=== PATIENT | female | born 1950 | race Caucasian/White ===

== ENCOUNTER 2019-01-11 15:57 | Emergency (ER) | payer OTHER ==
--- OUTSIDE RECORDS SUMMARY | 2019-01-11 16:01 | XMS REPORT | Clinical Summary ---
:1950 Author Organization [facility] Address [address] [place] [address] Care Team Providers Name Role Phone Lucas Stafford DO Primary Care Provider Allergies Active Allergy Reactions Severity Noted Date Comments Adhesive Hives High 12/01/2015 Povidone-Iodine Hives High 12/01/2015 Codeine Anaphylaxis High 12/01/2015 Diazepam Anaphylaxis High 12/01/2015 Iodine High 12/01/2015 Other reaction(s): Irregular heart rate Penicillins Anaphylaxis High 12/01/2015 Procaine Hives High 12/01/2015 Propoxyphene Anaphylaxis High 12/01/2015 Propoxyphene N-Acetaminophen Anaphylaxis High 12/01/2015 Sulfa (Sulfonamide Hives High 12/01/2015 Antibiotics) Medications Medication Sig Dispensed Refills Start End Date Status Date meclizine (ANTIVERT) Take 25 mg by mouth 2 (two) times a day. 1 tablet po BID 0 Active 25 mg tablet INSULIN ASPART Inject 20 Units 0 Active (NOVOLOG FLEXPEN under the skin SUBQ) nightly. budesonide-formotero Inhale 2 puffs 3 Inhaler 3 Active l (SYMBICORT) 2 (two) times a 7 160-4.5 day. mcg/actuation inhaler aspirin (ECOTRIN) 81 Take 81 mg by 0 Active MG enteric coated mouth daily. tablet KLOR-CON 10 10 mEq Take 1 tablet 90 tablet 0 Active CR tablet by mouth daily 7 insulin detemir Inject 30 Units 30 mL 1 Active (LEVEMIR) 100 under the skin 7 unit/mL injection nightly. nitroglycerin TAKE 1 TABLET 3 Active (NITROSTAT) 0.4 MG BY MOUTH UNDER 8 SL tablet TONGUE EVERY 5 MIN NEEDED FOR CHEST PAIN blood-glucose meter Test daily 1 each 0 Active (ACCU-CHEK YUNIEL before all 8 PLUS METER) [facility] [place] meals/snacks and once before bedtime. blood sugar Test B.I.D.-DX; 200 strip 1 Active diagnostic strips E11.9 8 (FREESTYLE TEST) strip test strips triamcinolone Apply topically 80 g 1 01/19/20 Active (KENALOG) 0.025 % 2 (two) times a 8 19 creamIndications: day. Decubitus ulcer of buttock, stage 2, unspecified laterality potassium chloride Take 1 tablet 90 tablet 1 Active (KLOR-CON 10) 10 MEQ (10 mEq total) 8 CR tablet by mouth daily. insulin lispro Inject 20 Units 18 pen 3 Active (HUMALOG) 100 under the skin 8 unit/mL injection 3 (three) times pen a day before meals. metoprolol succinate Take 1 tablet 90 tablet 1 Active XL (TOPROL-XL) 25 mg (25 mg total) 8 24 hr tablet by mouth daily. lisinopril Take 1 tablet 90 tablet 1 Active (PRINIVIL,ZESTRIL) 5 (5 mg total) by 8 mg tablet mouth daily. KLOR-CON 10 10 mEq Take 1 tablet 90 tablet 0 Active CR tablet by mouth daily 8 BRILINTA 90 mg Take 1 tablet 180 tablet 0 Active tablet by mouth every 8 12 hours PROAIR HFA 90 Inhale 2 puffs 34 g 0 Active mcg/actuation by mouth every 8 inhalerIndications: 6 hours as History of asthma needed for wheezing atorvastatin Take 1 tablet 90 tablet 0 Active (LIPITOR) 80 MG (80 mg total) 9 tablet by mouth nightly. insulin GLARGINE Inject 30 Units 10 vial 3 Active (LANTUS) 100 unit/mL under the skin 9 injection (vial) nightly. furosemide (LASIX) Take 1 tablet 180 tablet 1 Active 20 mg tablet (20 mg total) 9 by mouth 2 (two) times a day. PARoxetine (PAXIL) Take 1 tablet 90 tablet 1 Active 20 MG tablet (20 mg total) 9 by mouth every morning. tolterodine LA Take 1 capsule 90 capsule 1 Active (DETROL LA) 4 MG 24 (4 mg total) by 9 hr capsule mouth daily. traMADol 100 mg Take 100 mg by 180 capsule 1 03/23/20 Active capsule,ER biphase mouth 2 (two) 9 19 24 hr 25-75 times a day for 90 days. fenofibrate (TRICOR) Take 1 tablet 90 tablet 1 Active 145 MG tablet (145 mg total) 9 by mouth daily. minocycline Take 1 capsule 60 capsule 0 02/07/20 Active (MINOCIN,DYNACIN) (100 mg total) 9 19 100 MG capsule by mouth 2 (two) times a day for 30 days. traMADol 100 mg Take 100 mg by 180 capsule 1 03/06/20 Discontinued capsule,ER biphase mouth 2 (two) 6 18 24 hr 25-75 times a day for 90 days. hydrocortisone Take 20 mg by 0 05/21/20 Discontinued (CORTEF) 20 MG mouth as 7 18 tablet needed. fenofibrate (TRICOR) Take 1 tablet 90 tablet 1 03/06/20 Discontinued 145 MG tablet (145 mg total) 7 18 by mouth daily. furosemide (LASIX) Take 20 mg by 0 05/21/20 Discontinued 20 mg tablet mouth 2 (two) 18 times a day. pregabalin (LYRICA) Take 150 mg by 0 09/23/20 Discontinued 150 MG capsule mouth 3 (three) 18 times a day. fludrocortisone 0.1 Take 1 tablet 90 tablet 0 02/26/20 Discontinued mg tablet by mouth daily 7 18 clonAZEPAM Take 1 tablet 90 tablet 0 02/09/20 Discontinued (KlonoPIN) 1 MG by mouth every 7 18 tablet night at bedtime triamcinolone Apply topically 80 g 1 01/19/20 Discontinued (KENALOG) 0.025 % 2 (two) times a 8 18 creamIndications: day. Decubitus ulcer of buttock, stage 2, unspecified laterality albuterol (PROAIR Inhale 2 puffs 18 g 1 04/15/20 Discontinued HFA,PROVENTIL every 6 (six) 8 18 HFA,VENTOLIN HFA) 90 hours as needed mcg/actuation for wheezing. inhalerIndications: History of asthma PARoxetine (PAXIL) Take 1 tablet 90 tablet 0 05/21/20 Discontinued 20 MG tablet by mouth every 8 18 morning BRILINTA 90 mg Take 90 mg by 6 01/19/20 Discontinued tablet mouth every 12 8 18 (twelve) hours. metoprolol succinate Take 25 mg by 6 01/19/20 Discontinued XL (TOPROL-XL) 25 mg mouth daily. 8 18 24 hr tablet lisinopril Take 5 mg by 6 01/19/20 Discontinued (PRINIVIL,ZESTRIL) 5 mouth daily. 8 18 mg tablet atorvastatin Take 80 mg by 6 01/19/20 Discontinued (LIPITOR) 80 MG mouth nightly. 8 18 tablet insulin lispro Inject 20 Units 0 04/15/20 Discontinued (HUMALOG) 100 under the skin 18 unit/mL injection 3 (three) times pen a day before meals. insulin GLARGINE Inject 30 Units 0 04/15/20 Discontinued (LANTUS) 100 unit/mL under the skin 18 injection (vial) nightly. traMADol (ULTRAM) 50 Take 1 tablet 30 tablet 0 02/11/20 Discontinued mg tablet by mouth every 8 18 6 hours as needed for moderate pain lisinopril Take 1 tablet 90 tablet 0 04/15/20 Discontinued (PRINIVIL,ZESTRIL) 5 (5 mg total) by 8 18 mg tablet mouth daily. atorvastatin Take 1 tablet 90 tablet 0 02/09/20 Discontinued (LIPITOR) 80 MG (80 mg total) 8 18 tablet by mouth nightly. BRILINTA 90 mg Take 1 tablet 180 tablet 0 01/23/20 Discontinued tablet (90 mg total) 8 18 by mouth every 12 (twelve) hours. metoprolol succinate Take 1 tablet 90 tablet 0 04/15/20 Discontinued XL (TOPROL-XL) 25 mg (25 mg total) 8 18 24 hr tablet by mouth daily. BRILINTA 90 mg Take 1 tablet 180 tablet 0 06/28/20 Discontinued tablet (90 mg total) 8 18 by mouth every 12 (twelve) hours. clonAZEPAM Take 1 tablet 90 tablet 0 03/10/20 (KlonoPIN) 1 MG (1 mg total) by 8 18 tablet mouth nightly for 30 days. atorvastatin Take 1 tablet 90 tablet 1 07/23/20 Discontinued (LIPITOR) 80 MG (80 mg total) 8 18 tablet by mouth nightly. traMADol (ULTRAM) 50 Take 1 tablet 30 tablet 0 03/13/20 mg tablet by mouth every 8 18 6 hours as needed for moderate pain minocycline Take 1 capsule 60 capsule 1 03/06/20 Discontinued (MINOCIN,DYNACIN) (100 mg total) 8 18 100 MG capsule by mouth 2 (two) times a day for 30 days. fludrocortisone Take 1 tablet 90 tablet 0 05/20/20 Discontinued (FLORINEF) 0.1 mg by mouth daily 8 18 tablet minocycline Take 1 capsule 60 capsule 1 04/15/20 Discontinued (MINOCIN,DYNACIN) (100 mg total) 8 18 100 MG capsule by mouth 2 (two) times a day for 30 days. fenofibrate (TRICOR) Take 1 tablet 90 tablet 1 09/03/20 Discontinued 145 MG tablet (145 mg total) 8 18 by mouth daily. traMADol 100 mg Take 100 mg by 180 capsule 1 05/21/20 Discontinued capsule,ER biphase mouth 2 (two) 8 18 24 hr 25-75 times a day for 90 days. KLOR-CON 10 10 mEq Take 1 tablet 90 tablet 0 04/08/20 Discontinued CR tablet by mouth daily 8 18 albuterol (PROAIR Inhale 2 puffs 51 g 1 09/27/20 Discontinued HFA,PROVENTIL every 6 (six) 8 18 HFA,VENTOLIN HFA) 90 hours as needed mcg/actuation for wheezing. inhalerIndications: History of asthma metoprolol succinate Take 1 tablet 90 tablet 1 05/21/20 Discontinued XL (TOPROL-XL) 25 mg (25 mg total) 8 18 24 hr tablet by mouth daily. lisinopril Take 1 tablet 90 tablet 1 05/21/20 Discontinued (PRINIVIL,ZESTRIL) 5 (5 mg total) by 8 18 mg tablet mouth daily. minocycline Take 1 capsule 180 capsule 1 05/15/20 (MINOCIN,DYNACIN) (100 mg total) 8 18 100 MG capsule by mouth 2 (two) times a day for 30 days. insulin GLARGINE Inject 30 Units 10 vial 3 11/11/19 Discontinued (LANTUS) 100 unit/mL under the skin 8 19 injection (vial) nightly. pen needle, diabetic 3 Devices 300 each 1 08/07/20 Discontinued (TRUEPLUS PEN daily. 8 18 NEEDLE) 32 gauge x 5/32" needle fludrocortisone Take 1 tablet 90 tablet 0 05/21/20 Discontinued (FLORINEF) 0.1 mg by mouth daily 8 18 tablet minocycline Take 100 mg by 0 08/07/20 Discontinued (MINOCIN,DYNACIN) mouth 2 (two) 18 100 MG capsule times a day. clonAZEPAM clonazepam 1 mg tablet 0 05/21/20 Discontinued (KlonoPIN) 1 MG Take 1 tablet by mouth every night at bedtime 18 tablet pregabalin (LYRICA) Take 150 mg by 0 05/21/20 Discontinued 150 MG capsule mouth 2 (two) 18 times a day. tolterodine LA Take 4 mg by 0 05/21/20 Discontinued (DETROL LA) 4 MG 24 mouth daily. 18 hr capsule clonAZEPAM clonazepam 1 mg tablet 90 tablet 1 06/28/20 Discontinued (KlonoPIN) 1 MG Take 1 tablet by mouth every night at bedtime 8 18 tablet furosemide (LASIX) Take 1 tablet 180 tablet 1 11/26/19 Discontinued 20 mg tablet (20 mg total) 8 19 by mouth 2 (two) times a day. fludrocortisone Take 1 tablet 90 tablet 1 08/21/20 (FLORINEF) 0.1 mg by mouth daily 8 18 tablet pregabalin (LYRICA) Take 1 capsule 180 capsule 1 08/19/20 150 MG capsule (150 mg total) 8 18 by mouth 2 (two) times a day for 90 days. traMADol 100 mg Take 100 mg by 180 capsule 1 10/11/20 Discontinued capsule,ER biphase mouth 2 (two) 8 18 24 hr 25-75 times a day for 90 days. PARoxetine (PAXIL) Take 1 tablet 90 tablet 1 11/26/19 Discontinued 20 MG tablet (20 mg total) 8 19 by mouth every morning. tolterodine LA Take 1 capsule 90 capsule 1 11/26/19 Discontinued (DETROL LA) 4 MG 24 (4 mg total) by 8 19 hr capsule mouth daily. fludrocortisone Take 1 tablet 90 tablet 0 07/14/20 (FLORINEF) 0.1 mg by mouth daily 8 18 tablet clonAZEPAM Take 1 tablet 90 tablet 0 07/28/20 (KlonoPIN) 1 MG by mouth 8 18 tablet nightly BRILINTA 90 mg Take 1 tablet 180 tablet 0 09/23/20 Discontinued tablet by mouth every 8 18 12 hours atorvastatin Take 1 tablet 90 tablet 0 08/27/20 Discontinued (LIPITOR) 80 MG by mouth 8 18 tablet nightly pen needle, diabetic 3 Devices 300 each 1 09/20/20 Discontinued (TRUEPLUS PEN daily. 8 18 NEEDLE) 32 gauge x 5/32" needle minocycline Take 1 capsule 20 capsule 0 08/21/20 Discontinued (MINOCIN,DYNACIN) (100 mg total) 8 18 100 MG capsule by mouth 2 (two) times a day for 10 days. minocycline Take 1 capsule 60 capsule 0 10/07/20 Discontinued (MINOCIN,DYNACIN) (100 mg total) 8 18 100 MG capsule by mouth 2 (two) times a day for 30 days. atorvastatin Take 1 tablet 90 tablet 0 10/31/19 Discontinued (LIPITOR) 80 MG by mouth 8 19 tablet nightly fenofibrate (TRICOR) Take 1 tablet 90 tablet 0 12/23/19 Discontinued 145 MG tablet by mouth daily 8 19 pen needle, diabetic 3 Devices 300 each 1 09/23/20 Discontinued (TRUEPLUS PEN daily. 8 18 NEEDLE) 32 gauge x 5/32" needle clonAZEPAM Take 1 tablet 90 tablet 0 12/24/19 (KlonoPIN) 1 MG by mouth 8 19 tablet nightly pen needle, diabetic Use three 300 each 1 12/24/19 (BD ULTRA-FINE ASHOK needles daily 8 19 PEN NEEDLE) 32 gauge to inject x 532" needle insulin pregabalin (LYRICA) Take 1 capsule 270 capsule 2 12/22/19 150 MG capsule (150 mg total) 8 19 by mouth 3 (three) times a day for 90 days. minocycline Take 1 capsule 60 capsule 0 11/20/19 Discontinued (MINOCIN,DYNACIN) (100 mg total) 8 19 100 MG capsule by mouth 2 (two) times a day for 30 days. traMADol 100 mg Take 100 mg by 180 capsule 1 12/23/19 Discontinued capsule,ER biphase mouth 2 (two) 8 19 24 hr 25-75 times a day for 90 days. insulin GLARGINE Inject 30 Units 10 vial 3 11/26/19 Discontinued (LANTUS) 100 unit/mL under the skin 9 19 injection (vial) nightly. minocycline Take 1 capsule 60 capsule 0 01/08/20 Discontinued (MINOCIN,DYNACIN) (100 mg total) 9 19 100 MG capsule by mouth 2 (two) times a day for 30 days. insulin GLARGINE Inject 30 Units 10 vial 3 11/26/19 Discontinued (LANTUS) 100 unit/mL under the skin 9 19 injection (vial) nightly. tolterodine LA Take 1 capsule 90 capsule 1 12/13/19 Discontinued (DETROL LA) 4 MG 24 (4 mg total) by 9 19 hr capsule mouth daily. tolterodine LA Take 1 capsule 90 capsule 1 12/23/19 Discontinued (DETROL LA) 4 MG 24 (4 mg total) by 9 19 hr capsule mouth daily. 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 History of coronary artery stent placement 12/21/2017 History of asthma 2017 Left ear pain 2017 Intractable acute post-traumatic headache 08/08/2017 Hematoma 08/08/2017 Mixed hyperlipidemia 05/07/2017 Pressure ulcer of contiguous region involving back, buttock, and hip, 2016 stage 1 Pain in buttock 03/12/2017 Thrush 02/28/2017 Cellulitis of right lower extremity 02/28/2017 Dysuria 2016 Polyuria 2016 Foot injury 09/01/2016 Abnormal mammogram of left breast 09/01/2016 Fall 07/31/2016 Difficulty walking 05/02/2016 Urge incontinence of urine 05/02/2016 Arthritis of knee 12/01/2015 Depression 12/01/2015 Diabetic neuropathy with neurologic complication 12/01/2015 Diabetic neuropathy 12/01/2015 Diarrhea 12/01/2015 Herpes zoster 12/01/2015 Impairment level: one eye: total impairment: other eye: not specified 2015 Knee pain 12/01/2015 Nausea 12/01/2015 Peripheral neuropathic pain 12/01/2015 Restless legs syndrome 12/01/2015 Sinusitis 12/01/2015 Wheezing 12/01/2015 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 Encounters Date Type Specialty Care Team Description 01/10/2019 Telephone Family Medicine Dora Vaca LVN 01/07/2019 Orders Only Family Medicine Mayeamfelter, R Osbaldo, DO 01/03/2019 Refill Family Medicine Lingamfelter, R Osbaldo, DO 12/23/2018 Orders Only Family Medicine Lingamfelter, R Osbaldo, DO 12/21/2018 Refill Family Medicine Lingamfelter, R Osbaldo, DO 12/13/2018 Orders Only Family Medicine Lingamfelter, R Osbaldo, DO 12/12/2018 Refill Lingamfelter, R Osbaldo, DO 11/26/2018 Orders Only Family Medicine Lingamfelter, R Osbaldo, DO 11/26/2018 Orders Only Family Medicine Lingamfelter, R Osbaldo, DO 11/26/2018 Orders Only Family Medicine Lingamfelter, R Osbaldo, DO 11/24/2018 Refill Lingamfelter, R Osbaldo, DO 11/24/2018 Refill Family Medicine Lingamfelter, R Osbaldo, DO 11/20/2018 Orders Only Family Medicine Lingamfelter, R Osbaldo, DO 11/19/2018 Refill Family Medicine Lingamfelter, R Osbaldo, DO 11/10/2018 Refill Internal Medicine Lingamfelter, R Osbaldo, DO 11/10/2018 Telephone Internal Medicine Lingamfelter, R Osbaldo, DO 10/31/2018 Refill Family Medicine Lingamfelter, R Osbaldo, DO 10/24/2018 Refill Family Medicine Lingamfelter, R Osbaldo, DO 10/18/2018 Orders Only Family Medicine Lingamfelter, R Osbaldo, DO 10/18/2018 Refill Family Medicine Lingamfelter, R Osbaldo, DO 10/11/2018 Orders Only Family Medicine Lingamfelter, R Osbaldo, DO 10/11/2018 Refill Family Medicine Lingamfelter, R Osbaldo, DO 10/07/2018 Refill Family Medicine Lingamfelter, R Osbaldo, DO 09/27/2018 Refill Family Medicine Lingamfelter, R History of asthma Osbaldo, DO 09/23/2018 Orders Only Family Medicine Lingamfelter, R Osbaldo, DO 09/23/2018 Orders Only Family Medicine Lingamfelter, R Osbaldo, DO 09/23/2018 Refill Family Medicine Lingamfelter, R Osbaldo, DO 09/23/2018 Telephone Family Medicine Dora Vaca LVN 09/21/2018 Refill Family Medicine Lingamfelter, R Osbaldo, DO 09/20/2018 Refill Family Medicine Lingamfelter, R Osbaldo, DO 09/03/2018 Refill Family Medicine Lingamfelter, R Osbaldo, DO 08/27/2018 Refill Family Medicine Lingamfelter, R Osbaldo, DO 08/21/2018 Orders Only Family Medicine Lingamfelter, R Osbaldo, DO 08/21/2018 Telephone Internal Medicine Marky Tello MA 08/07/2018 Office Visit Family Medicine Lingamfelter, R Diabetic neuropathy with neurologic complication (HCC) (Primary Dx); Osbaldo, DO Pressure injury of contiguous region involving back, buttock, and hip, stage 1, unspecified laterality 08/03/2018 Refill Endocrinology Munira Lemus MD 07/23/2018 Refill Family Medicine Lingamfelter, R Osbaldo, DO 07/01/2018 Orders Only Family Medicine Lingamfelter, R Osbaldo, DO 06/28/2018 Refill Family Medicine Lingamfelter, R Osbaldo, DO 06/15/2018 Refill Endocrinology Munira Lemus MD 06/13/2018 Refill Family Medicine Lingamfelter, R Osbaldo, DO 05/21/2018 Office Visit Family Medicine Lingamfelter, R Coronary artery disease of [place]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 stable angina pectoris (Primary Dx ); Osbaldo, DO Diabetic neuropathy with neurologic complication 05/20/2018 Refill Family Medicine Lingamfelter, R Osbaldo, DO 05/18/2018 Refill Family Medicine Lingamfelter, R Osbaldo, DO 05/02/2018 Refill Family Medicine Lingamfelter, R Osbaldo, DO 04/25/2018 Orders Only Family Medicine Lingamfelter, R Osbaldo, DO 04/15/2018 Orders Only Family Medicine Lingamfelter, R Osbaldo, DO 04/15/2018 Orders Only Family Medicine Lingamfelter, R Osbaldo, DO 04/15/2018 Orders Only Family Medicine Lingamfelter, R History of asthma Osbaldo, DO 04/14/2018 Refill Family Medicine Pop Navarro History of asthma MD Ross 04/14/2018 Refill Family Medicine Lingamfelter, R Osbaldo, DO 04/08/2018 Office Visit Family Medicine Lingamfelter, R Pressure ulcer of contiguous region involving back, buttock, and hip, stage 1, unspecified laterality (Primary Dx); Osbaldo, DO Rash 03/31/2018 Refill Family Medicine Lingamfelter, R Osbaldo, DO 03/06/2018 Office Visit Family Medicine Lingamfelter, R Coronary artery disease of [place]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 stable angina pectoris (Primary Dx ); Osbaldo, DO Decubitus ulcer of sacral region, stage 2 02/25/2018 Refill Family Medicine Lingamfelter, R Osbaldo, DO 02/20/2018 Office Visit Family Medicine Lingamfelter, R Pain in buttock ( Primary Dx); Osbaldo, DO Pressure ulcer of contiguous region involving back and right buttock, stage 2 02/10/2018 Refill Family Medicine Lingamfelter, R Osbaldo, DO 02/08/2018 Orders Only Family Medicine Lingamfelter, R Osbaldo, 02/06/2018 Refill Family Medicine Lucas Stafford, DO 01/22/2018 Orders Only Family Medicine Lucas Stafford, 01/18/2018 Orders Only Family Medicine Lucas Stafford, DO 01/18/2018 Orders Only Family Medicine Lucas Stafford Decubitus ulcer of DO Osbaldo buttock, stage 2, unspecified laterality 01/17/2018 Refill Family Medicine Pop Navarro Decubitus ulcer of MD Ross buttock, stage 2, unspecified laterality after 01/10/2018 Immunizations Name Dates Previously Given Next Due FLUZONE HIGH-DOSE PF 11/14/2018, 08/07/2016, 08/18/2015, 08/29/2014 Pneumococcal Polysaccharide 07/29/2013 Family History Medical History Relation Name Comments Cancer Father Throat cancer Father Pulmonary embolism Mother Relation Name Status Comments Father (Age 61) Mother (Age 79) Social History Tobacco Use Types Packs/Day Years Used Date Current Every Day Smoker 1 36 Started: 1979 Smokeless Tobacco: Never Used Tobacco Cessation: Ready to Quit: Yes; Counseling Given: Yes Comments: quitting now on 10/30 day Alcohol Use Drinks/Week oz/Week Comments No Sex Assigned at Date Recorded Not on file Job Start Date Occupation Industry Not on file Not on file Not on file Travel History Travel Start Travel End No recent travel history available. Last Filed Vital Signs Vital Sign Reading Time Taken Blood Pressure 126/76 08/07/2018 10:23 AM CDT Pulse 68 08/07/2018 10:23 AM CDT Temperature 36.7 C (98 F) 08/07/2018 10:23 AM CDT Respiratory Rate 18 08/07/2018 10:23 AM CDT Oxygen Saturation 93% 08/07/2018 10:23 AM CDT Inhaled Oxygen Concentration - - Weight 94.3 kg (208 lb) 08/07/2018 10:23 AM CDT Height 167.6 cm (5' 6") 08/07/2018 10:23 AM CDT Body Mass Index 33.57 08/07/2018 10:23 AM CDT Plan of Treatment Date Type Specialty Care Team Description 01/13/2019 [place] [address] [place] [address] [phone] [place] [address] [place] [address] [phone] Health Maintenance Due Date Last Done Comments DIABETIC RETINAL EYE EXAM 1950 DIABETIC FOOT EXAM 1959 COLON CANCER SCREENING 1999 SHINGLES VACCINES (#1) 1999 65+ PNEUMOCOCCAL VACCINE (2 of 2 - 07/29/2018 07/29/2013 PPSV23) BREAST CANCER SCREENING 12/06/2018 12/06/2016, 09/11/2016, 08/07/2016, Additional history exists URINE MICROALBUMIN 05/21/2019 05/21/2018 PNEUMOCOCCAL POLYSACCHARIDE VACCINE Completed 07/29/2013 AGE 65 AND OVER INFLUENZA VACCINE Completed 11/14/2018, 08/07/2016, 08/18/2015, Additional history exists Implants Implanted Type Area Wrapper Stripper Device Shelf Model / Identifier Expiration Serial / Lot Date Lens Iol Asprc Asymet Bicnvx Ant +17.5d 0deg 6x13mm - [id number] - [id number] Intraocular Right: JED 02/25/2021 [id number] / Implanted: Qty: 1 on 03/14/2017 by Ilir Lopez DO [employer] [id number] / INC [id number] Lens Iol Asprc Asymet Bicnvx Ant +17.0d 0deg 6x13mm - [id number] - [id number] Intraocular Left: JED 02/25/2021 [id number] / Implanted: Qty: 1 on 06/06/2017 by Ilir Lopez DO [employer] [id number] / [id number] Procedures Procedure Name Priority Date/Time Associated Diagnosis Comments URINALYSIS, MICRO UA Routine 05/21/2018 12:15 Diabetic neuropathy Results for this SCREEN WITH MICROSCOPY PM CDT with neurologic procedure are in complication the results section. LIPID PANEL Routine 05/21/2018 12:15 Diabetic neuropathy Results for this PM CDT with neurologic procedure are in complication the results section. COMPREHENSIVE Routine 05/21/2018 12:15 Diabetic neuropathy Results for this METABOLIC PANEL PM CDT with neurologic procedure are in complication the results section. CBC WITH PLATELET AND Routine 05/21/2018 12:15 Coronary artery Results for this DIFFERENTIAL PM CDT disease of [place] procedure are in artery of [place] the results heart with stable section. angina pectoris HEMOGLOBIN A1C Routine 05/21/2018 12:15 Diabetic neuropathy Results for this PM CDT with neurologic procedure are in complication the results section. MICROALBUMIN / Routine 05/21/2018 12:15 Diabetic neuropathy Results for this CREATININE URINE RATIO PM CDT with neurologic procedure are in complication the results section. after 01/10/2018 Results Urinalysis, micro UA screen with microscopy (05/21/2018 12:15 PM CDT) WBC, UA NONE SEEN < OR=5 /HPF [facility] [place] RBC, UA NONE SEEN < OR=2 /HPF [facility] [place] Squamous epithelial cells, UA NONE SEEN < OR=5 /HPF [facility] [place] Bacteria, UA NONE SEEN NONE SEEN /HPF [facility] [place] Hyaline casts, UA NONE SEEN NONE SEEN /LPF [facility] [place] Specimen Urine Narrative Performed At FASTING:NO [facility] FASTING: NO Resulting Agency Comment Performing Organization Information: Site ID: [id number] Name: [facility] Address: [address] [place] [id number] Director: Hemalatha Davies Performing Organization Address City/State/Zipcode Phone Number [place] [address] Microalbumin / creatinine urine ratio (05/21/2018 12:15 PM CDT) Creatinine, urine, 31 20 - 320 mg/dL [facility] Microalbumin, urine <0.2 See Note: mg/dL [facility] Comment: [place] Reference Range: Reference Range Not established Results verified by repeat analysis on dilution. Microalbumin/creatini NOTE <30 mcg/mg creat [facility] ne ratio Comment: [place] The microalbumin value is less than 0.2 mg/dL therefore we are unable to calculate excretion and/or creatinine ratio. The ADA defines abnormalities in albumin excretion as follows: Category Result (mcg/mg creatinine) Normal<30 Microalbuminuria 30-299 Clinical albuminuria > BE=510 The ADA recommends that at least two of three specimens collected within a 3-6 month period be abnormal before considering a patient to be within a diagnostic category. Specimen Urine Narrative Performed At FASTING:NO [facility] FASTING: NO Resulting Agency Comment Performing Organization Information: Site ID: [id number] Name: [facility] Address: [address] [place], [place] [phone] Director: Hemalatha Davies Performing Organization Address City/[facility]/Zipcode Phone Number Take the Interview [address] [address] CBC with platelet and differential (05/21/2018 12:15 PM CDT) WBC 6.3 3.8 - 10.8 Thousand/uL [facility] [place] RBC 5.13 (H) 3.80 - 5.10 Million/uL [facility] [place] HGB 14.7 11.7 - 15.5 g/dL [facility] [place] HCT 43.7 35.0 - 45.0 % [facility] [place] MCV 85.2 80.0 - 100.0 fL [facility] [place] MCH 28.7 27.0 - 33.0 pg [facility] [place] MCHC 33.6 32.0 - 36.0 g/dL [facility] [place] RDW 13.4 11.0 - 15.0 % [facility] [place] Platelet count 189 140 - 400 Thousand/uL [facility] [place] MPV 10.4 7.5 - 12.5 fL [facility] [place] Neutrophils, absolute 2,344 1,500 - 7,800 cells/uL [facility] [place] Lymphocytes, absolute 2,948 850 - 3,900 cells/uL [facility] [place] Monocytes, absolute 662 200 - 950 cells/uL [facility] [place] Eosinophils, absolute 277 15 - 500 cells/uL [facility] [place] Basophils, absolute 69 0 - 200 cells/uL [facility] [place] Neutrophils 37.2 % [facility] [place] Lymphocytes 46.8 % [facility] [place] Monocytes 10.5 % [facility] [place] Eosinophils 4.4 % [facility] [place] Basophils + RC 1.1 % [facility] [place] Specimen Blood Narrative Performed At FASTING:NO [facility] FASTING: NO Resulting Agency Comment Performing Organization Information: Site ID: [id number] Name: [facility] Address: [address] [place] [phone] Director: Hemalatha Davies Performing Organization Address City/State/Zipcode Phone Number Take the Interview [address] [address] Hemoglobin A1c (05/21/2018 12:15 PM CDT) Hemoglobin A1C 10.9 (H) <5.7 % of total [facility] Comment: Hgb [place] For someone without known diabetes, a hemoglobin A1c value of 6.5% or greater indicates that they may have diabetes and this should be confirmed with a follow-up test. For someone with known diabetes, a value <7% indicates that their diabetes is well controlled and a value greater than or equal to 7% indicates suboptimal control. A1c targets should be individualized based on duration of diabetes, age, comorbid conditions, and other considerations. Currently, no consensus exists regarding use of hemoglobin A1c for diagnosis of diabetes for children. Specimen Blood Narrative Performed At FASTING:NO [facility] FASTING: NO Resulting Agency Comment Performing Organization Information: Site ID: [id number] Name: [facility] Address: [address] [place] [phone] Director: Hemalatha Davies Performing Organization Address City/State/Zipcode Phone Number [facility] [place] [phone] Lipid panel (05/21/2018 12:15 PM CDT) Cholesterol, total 121 <200 mg/dL [facility] HDL cholesterol 29 (L) >50 mg/dL [facility] Triglycerides 279 (H) <150 mg/dL [facility] LDL cholesterol 59 mg/dL (calc) [facility] calculated Comment: [place] Reference range: <100 Desirable range <100 mg/dL for primary prevention; <70 mg/dL for patients with CHD or diabetic patients with > or=2 CHD risk factors. LDL-C is now calculated using the Oumar-Melonie calculation, which is a validated novel method providing better accuracy than the Friedewald equation in the estimation of LDL-C. Oumar CHI et al. GURINDER. 2013;310(19): 4962-2532 (http://education.GoldenSUN/faq/HMU810) Cholesterol/HDL ratio 4.2 <5.0 (calc) [facility] Non-HDL cholesterol 92 <130 mg/dL [facility] Comment: (calc) [place] For patients with diabetes plus 1 major ASCVD risk factor, treating to a non-HDL-C goal of <100 mg/dL (LDL-C of <70 mg/dL) is considered a therapeutic option. Specimen Blood Narrative Performed At FASTING:NO [facility] FASTING: NO Resulting Agency Comment Performing Organization Information: Site ID: [id number] Name: [facility] Address: [address] [place] [phone] Director: Hemalatha Davies Performing Organization Address City/[facility]/Zipcode Phone Number Take the Interview [address] [phone] Comprehensive metabolic panel (05/21/2018 12:15 PM CDT) Glucose 215 (H) 65 - 139 mg/dL [facility] Comment: [place] Non-fasting reference interval BUN, whole blood 14 7 - 25 mg/dL [facility] [place] Creatinine 0.79 0.50 - 0.99 [facility] Comment: mg/dL [place] For patients >49 years of age, the reference limit for Creatinine is approximately 13% higher for people identified as -Ecuadorean. EGFR Non-Afr. Ecuadorean 77 > OR=60 [facility] mL/min/1.73m2 [place] EGFR 89 > OR=60 [facility] mL/min/1.73m2 [place] BUN/creatinine ratio NOT APPLICABLE 6 - 22 (calc) [facility] [place] Sodium 140 135 - 146 mmol/L [facility] [place] Potassium 3.7 3.5 - 5.3 mmol/L [facility] [place] Chloride 103 98 - 110 mmol/L [facility] [place] CO2 26 20 - 31 mmol/L [facility] [place] Calcium 9.2 8.6 - 10.4 mg/dL [facility] [place] Protein 6.3 6.1 - 8.1 g/dL [facility] [place] Albumin, S 3.6 3.6 - 5.1 g/dL [facility] [place] Globulin, total 2.7 1.9 - 3.7 g/dL [facility] (calc) [place] Albumin/globulin ratio 1.3 1.0 - 2.5 (calc) [facility] [place] Total bilirubin 0.5 0.2 - 1.2 mg/dL [facility] [place] Alkaline phosphatase 58 33 - 130 U/L [facility] [place] AST 26 10 - 35 U/L [facility] [place] ALT 21 6 - 29 U/L [facility] [place] Specimen Blood Narrative Performed At FASTING:NO [facility] FASTING: NO Resulting Agency Comment Performing Organization Information: Site ID: [id number] Name: [facility] Address: [address] [place] [phone] Director: Hemalatha Davies Performing Organization Address City/[facility]/Zipcode Phone Number Take the Interview [address] [address] after 01/10/2018 Insurance Payer Benefit Plan / Group Subscriber ID Type Phone Address [facility] xxxxxxxxxxx [facility] Advance Directives Patient has advance care planning documents on file. For more information, please contact:[facility] [place] [address]
[2019-01-11 18:12] LABS: Absolute Lymphocytes (CBC) 2.6 K/uL (0.7-4.9); Absolute Monocytes 0.7 K/uL (0.1-1.3); Absolute Neutrophil 4.6 K/uL (1.8-8.0); Basophils % 1.2 % (0-1.3); Eosinophils % 3.5 % (0-4.4); Hematocrit 45.4 % (36.0-45.0); Lymphocytes % 31.5 % (15.3-44.8); MPV 8.2 fL (7.6-11.3); RBC Red Blood Cell Count 5.24 M/uL (3.86-4.86)
[2019-01-11 18:18] LABS: Protime INR 1.17
[2019-01-11 18:38] LABS: Albumin 3.4 g/dL (3.4-5.0); Bilirubin Total 0.5 mg/dL (0.2-1.0); Potassium 3.8 mmol/L (3.5-5.1); Protein, Total 6.9 g/dL (6.4-8.2)
--- NOTE | 2019-01-11 22:33 | ER ---
Nurse's Notes [facility] Name: Marlena Dia Age: 68 yrs Sex: Female : 1950 Arrival Date: 01/11/2019 Time: 16:00 Bed 2 Private MD: Diagnosis: Rash and other nonspecific skin eruption;Urinary tract infection, site not specified Presentation: 01/11 16:40 Presenting complaint: Patient states: "my legs and feet are black like multiple bruises aa5 on them for about 2 weeks". Pedal pulses 3+. Pt states "my whole body is weak since 2005 but it has gotten worse over the last 2 years". Pt denies SOB, denies chest pain. Pt states "I take a blood thinner but I can't remember the name". Transition of care: patient was not received from another setting of care. Onset of symptoms was December 2018. Risk Assessment: Do you want to hurt yourself or someone else? Patient reports no desire to harm self or others. Initial Sepsis Screen: Does the patient meet any 2 criteria? No. Patient's initial sepsis screen is negative. Does the patient have a suspected source of infection? No. Patient's initial sepsis screen is negative. Care prior to arrival: None. 16:40 Method Of Arrival: Wheelchair aa5 16:40 Acuity: RAVI 3 aa5 17:27 Note Pt states for the past two weeks her knees to her feet she has developed black pc1 spot's. Stated that for the past week they have been painful. Stated that she believes she has a UTI. Triage Assessment: 17:22 General: Appears in no apparent distress. uncomfortable, Behavior is calm, cooperative, hj appropriate for age. Pain: Complains of pain in right leg and left leg. Historical: - Allergies: 16:44 Codeine; aa5 16:44 diazepam; aa5 16:44 Demerol; aa5 16:44 Iodine; aa5 16:44 novocaine; aa5 16:44 PENICILLINS; aa5 16:44 Propoxyphene HCl; aa5 16:44 propoxyphene napsylate; aa5 16:44 procaine HCl; aa5 16:44 Valium; aa5 16:44 Vicodin; aa5 16:44 Sulfa (Sulfonamide Antibiotics); aa5 - PMHx: 16:44 CHF; Diabetes - IDDM; Diabetes - NIDDM; High Cholesterol; PERIPHERAL NEUROPATHY; aa5 Myocardial infarction; - PSHx: 16:44 Heart stents; aa5 - Immunization history:: Flu vaccine is up to date. - Social history:: Smoking status: Patient uses tobacco products, 2-3 cigarettes a day . - Ebola Screening: : No symptoms or risks identified at this time. Screenin:22 Abuse screen: Denies threats or abuse. Denies injuries from another. Nutritional hj screening: No deficits noted. Tuberculosis screening: No symptoms or risk factors identified. Fall Risk None identified. Assessment: 17:31 Derm: Skin is intact, Black spontaneous spots on bilateral lower extremity Reports pain pc1 that is 7 out of 10 on a pain scale. tingling. 17:36 Reassessment: provider in room;. hj 17:37 Musculoskeletal: Circulation, motion, and sensation intact. Capillary refill is pc1 sluggish, in bilateral toes. Range of motion: intact in all extremities. 18:48 Reassessment: Patient and/or family updated on plan of care and expected duration. Pain hj level reassessed. Patient is alert, oriented x 3, equal unlabored respirations, skin warm/dry/pink. awaiting POC:. 19:12 Reassessment: Patient appears in no apparent distress at this time. No changes from jd3 previously documented assessment. Patient and/or family updated on plan of care and expected duration. Pain level reassessed. Patient is alert, oriented x 3, equal unlabored respirations, skin warm/dry/pink. pt requesting for a urine test for possible UTI, provider notified, new orders received. 20:00 Reassessment: Patient and/or family updated on plan of care and expected duration. Pain ea level reassessed. Patient is alert, oriented x 3, equal unlabored respirations, skin warm/dry/pink. 22:34 Reassessment: Patient and/or family updated on plan of care and expected duration. Pain ea level reassessed. Patient is alert, oriented x 3, equal unlabored respirations, skin warm/dry/pink. Discharge instruction given to patient, verbalized the understanding of instruction. Vital Signs: 16:44 BP 137 / 62; Pulse 69; Resp 18 S; Temp 97.7(TE); Pulse Ox 99% on R/A; Weight 92.53 kg aa5 (R); Height 5 ft. 6 in. (167.64 cm) (R); Pain 0/10; 17:50 BP 127 / 42; Pulse 69; Resp 18; Pulse Ox 99% on R/A; Pain 7/10; pc1 18:49 BP 128 / 70; Pulse 72; Resp 18; Pulse Ox 100% on R/A; hj 20:00 BP 134 / 85; Pulse 66; Resp 18; Pulse Ox 98% on R/A; ea 21:00 BP 135 / 61; Pulse 65; Resp 18; Pulse Ox 95% on R/A; ea 22:15 BP 152 / 66; Pulse 69; Resp 18; Pulse Ox 97% on R/A; ea 16:44 Body Mass Index 32.93 (92.53 kg, 167.64 cm) aa ED Course: 16:00 Patient arrived in ED. mr 16:40 Arm band placed on. aa5 16:42 Triage completed. aa5 17:16 Waylon Gonzalez, WILLIS is Primary Nurse. 17:21 Francisco Olson NP is PHCP. pm1 17:21 Hayder Smith MD is Attending Physician. pm1 17:22 Patient has correct armband on for positive identification. Placed in gown. Bed in low hj position. Call light in reach. Side rails up X 1. 18:02 CMP Sent. hj 18:02 CBC with Diff Sent. hj 18:02 PT-INR Sent. hj 18:02 Initial lab(s) drawn, by sd, sent to lab. hj 21:46 Straight cath inserted, using sterile technique, 16 Fr. Specimen obtained. ea 22:32 Patient did not have IV access during this emergency room visit. ea 22:38 No provider procedures requiring assistance completed. ea Administered Medications: No medications were administered Outcome: 22:32 Discharge ordered by . pm1 22:38 Discharged to home ambulatory. ea 22:38 Condition: good 22:38 Discharge instructions given to patient, Instructed on discharge instructions, follow up and referral plans. medication usage, Demonstrated understanding of instructions, follow-up care, medications, Prescriptions given X 1. 22:39 Patient left the ED. ea Addendum: 01/15/2019 08:01 Addendum: Culture Results: Positive urine culture. No further action required. Bacteria i w sensitive to prescribed antibiotic. Signatures: Celestina Arguelles mr Tiffanie Marie, RN RN Jessenia Mixon, RN RN aa5 Waylon Gonzalez, RN Francisco Tiwari, COMMODITY INDUSTRY ANALYST COMMODITY INDUSTRY ANALYST pm1 Lisa Pagan RN Ramesh Du ea, RN RN jd3 Cantu, Patrick pc1 Corrections: (The following items were deleted from the chart) 01/11 16:46 16:40 Presenting complaint: Patient states: "my legs and feet are black like multiple aa5 bruises on them for about 2 weeks". Pedal pulses 3+. Pt states "my whole body is weak since 2005 but it has gotten worse over the last 2 years". Pt denies SOB, denies chest pain. aa5 16:46 16:44 Pulse 69bpm; Resp 18bpm; Spontaneous; Pulse Ox 99% RA; Temp 97.7F Temporal; 92.53 aa5 kg Reported; Height 5 ft. 6 in. Reported; BMI: 32.9; Pain 0/10; aa5 17:40 17:31 Derm: Skin is intact, pc1 pc1
--- NOTE | 2019-01-11 22:33 | EDPHYS ---
Physician Documentation [facility] Name: Marlena [facility] Age: 68 yrs Sex: Female : 1950 Arrival Date: 01/11/2019 Time: 16:00 Bed 2 Private MD: ED Physician Hayder Smith HPI: 01/11 20:00 This 68 yrs old Female presents to ER via Wheelchair with complaints of Rash pm1 to legs and feet. 20:00 Onset: The symptoms/episode began/occurred 3 week(s) ago. Associated signs and pm1 symptoms: The patient has no apparent associated signs or symptoms, Pertinent negatives: abdominal pain, chest pain, cough, diarrhea, dysuria, fever, shortness of breath, vomiting. Modifying factors: The patient symptoms are alleviated by nothing, the patient symptoms are aggravated by nothing. The patient has not experienced similar symptoms in the past. The patient has been recently seen by a physician: the patient's primary care provider, with similar presenting complaints, Has appointment in 2 days. Historical: - Allergies: 16:44 Codeine; aa5 16:44 diazepam; aa5 16:44 Demerol; aa5 16:44 Iodine; aa5 16:44 novocaine; aa5 16:44 PENICILLINS; aa5 16:44 Propoxyphene HCl; aa5 16:44 propoxyphene napsylate; aa5 16:44 procaine HCl; aa5 16:44 Valium; aa5 16:44 Vicodin; aa5 16:44 Sulfa (Sulfonamide Antibiotics); aa5 - PMHx: 16:44 CHF; Diabetes - IDDM; Diabetes - NIDDM; High Cholesterol; PERIPHERAL NEUROPATHY; aa5 Myocardial infarction; - PSHx: 16:44 Heart stents; aa5 - Immunization history:: Flu vaccine is up to date. - Social history:: Smoking status: Patient uses tobacco products, 2-3 cigarettes a day . - Ebola Screening: : No symptoms or risks identified at this time. ROS: 20:00 Constitutional: Negative for fever, chills, and weight loss, Eyes: Negative for injury, pm1 pain, redness, and discharge, ENT: Negative for injury, pain, and discharge, Neck: Negative for injury, pain, and swelling, Cardiovascular: Negative for chest pain, palpitations, and edema, Respiratory: Negative for shortness of breath, cough, wheezing, and pleuritic chest pain, Abdomen/GI: Negative for abdominal pain, nausea, vomiting, diarrhea, and constipation, Back: Negative for injury and pain, : Negative for injury, bleeding, discharge, and swelling, MS/Extremity: Negative for injury and deformity. 20:00 Neuro: Negative for headache, weakness, numbness, tingling, and seizure. 20:00 Skin: Positive for rash, of the left leg and right leg. 20:00 : Positive for urinary symptoms, burning with urination. pm1 Exam: 20:00 Constitutional: This is a well developed, well nourished patient who is awake, alert, pm1 and in no acute distress. Head/Face: Normocephalic, atraumatic. Eyes: Pupils equal round and reactive to light, extra-ocular motions intact. Lids and lashes normal. Conjunctiva and sclera are non-icteric and not injected. Cornea within normal limits. Periorbital areas with no swelling, redness, or edema. ENT: Nares patent. No nasal discharge, no septal abnormalities noted. Tympanic membranes are normal and external auditory canals are clear. Oropharynx with no redness, swelling, or masses, exudates, or evidence of obstruction, uvula midline. Mucous membranes moist. Neck: Trachea midline, no thyromegaly or masses palpated, and no cervical lymphadenopathy. Supple, full range of motion without nuchal rigidity, or vertebral point tenderness. No Meningismus. Chest/axilla: Normal chest wall appearance and motion. Nontender with no deformity. No lesions are appreciated. Cardiovascular: Regular rate and rhythm with a normal S1 and S2. No gallops, murmurs, or rubs. Normal PMI, no JVD. No pulse deficits. Respiratory: Lungs have equal breath sounds bilaterally, clear to auscultation and percussion. No rales, rhonchi or wheezes noted. No increased work of breathing, no retractions or nasal flaring. Abdomen/GI: Soft, non-tender, with normal bowel sounds. No distension or tympany. No guarding or rebound. No evidence of tenderness throughout. Back: No spinal tenderness. No costovertebral tenderness. Full range of motion. Vital Signs: 16:44 BP 137 / 62; Pulse 69; Resp 18 S; Temp 97.7(TE); Pulse Ox 99% on R/A; Weight 92.53 kg aa5 (R); Height 5 ft. 6 in. (167.64 cm) (R); Pain 0/10; 17:50 BP 127 / 42; Pulse 69; Resp 18; Pulse Ox 99% on R/A; Pain 7/10; pc1 18:49 BP 128 / 70; Pulse 72; Resp 18; Pulse Ox 100% on R/A; hj 20:00 BP 134 / 85; Pulse 66; Resp 18; Pulse Ox 98% on R/A; ea 21:00 BP 135 / 61; Pulse 65; Resp 18; Pulse Ox 95% on R/A; ea 22:15 BP 152 / 66; Pulse 69; Resp 18; Pulse Ox 97% on R/A; ea 16:44 Body Mass Index 32.93 (92.53 kg, 167.64 cm) aa5 MDM: 17:37 Patient medically screened. pm1 19:02 Data reviewed: vital signs. pm1 20:57 Data interpreted: Pulse oximetry: on room air is 100 %. Interpretation: normal. pm1 22:32 Counseling: I had a detailed discussion with the patient and/or guardian regarding: the pm1 historical points, exam findings, and any diagnostic results supporting the discharge/admit diagnosis, lab results, the need for outpatient follow up, to return to the emergency department if symptoms worsen or persist or if there are any questions or concerns that arise at home. 01/11 17:38 Order name: PT-INR; Complete Time: 18:29 pm1 01/11 17:38 Order name: CBC with Diff; Complete Time: 18:18 pm1 01/11 17:38 Order name: CMP; Complete Time: 18:39 pm1 01/11 19:04 Order name: Urine Dipstick-Ancillary (obtain specimen); Complete Time: 21:46 pm1 01/11 19:04 Order name: Urine Microscopic Only pm1 01/11 22:09 Order name: Urine Dipstick--Ancillary (enter results) vd2 01/11 19:11 Order name: Straight Cath; Complete Time: 21:46 jd3 Administered Medications: No medications were administered Disposition: 01/12 09:59 Co-signature as Attending Physician, Hayder Smith MD I agree with the assessment and rn plan of care. Disposition: 01/11/19 22:32 Discharged to Home. Impression: Rash and other nonspecific skin eruption, Urinary tract infection, site not specified. - Condition is Stable. - Discharge Instructions: Rash, Urinary Tract Infection, Adult. - Prescriptions for Macrobid 100 mg Oral Capsule - take 1 capsule by ORAL route every 12 hours for 10 days; 20 capsule. - Medication Reconciliation Form, Thank You Letter, Antibiotic Education form. - Follow up: Emergency Department; When: As needed; Reason: Worsening of condition. Follow up: Private Physician; When: 2 - 3 days; Reason: Recheck today's complaints, Continuance of care, Re-evaluation by your physician. - Problem is new. - Symptoms are unchanged. Signatures: Dispatcher [employer] EDMS Hayder Smith MD MD rn Calderon, Audri RN RN aa5 Francisco Olson NP DAM ATTENDANT pm1 Lisa Pagan RN Ramesh Du ea RN RN jd3 Corrections: (The following items were deleted from the chart) 01/11 22:39 22:32 01/11/2019 22:32 Discharged to Home. Impression: Rash and other nonspecific skin ea eruption; Urinary tract infection, site not specified. Condition is Stable. Forms are Medication Reconciliation Form, Thank You Letter, Antibiotic Education, Prescription Opioid Use. Follow up: Emergency Department; When: As needed; Reason: Worsening of condition. Follow up: Private Physician; When: 2 - 3 days; Reason: Recheck today's complaints, Continuance of care, Re-evaluation by your physician. Problem is new. Symptoms are unchanged. pm1
[2019-01-11 22:45] VITALS: TEMP 97.7
[2019-01-11 22:52] VITALS: BP 152/66; O2SAT 97
[2019-01-11 23:50] LABS: Urine Bacteria 20-50 /HPF (<20); Urine Culture Reflex Order REFLEXED; Urine RBC <5 /HPF (NONE SEEN)
[2019-01-11 23:55] LABS: Urine Blood TRACE (NEG); Urine Glucose 2+ (NEG); Urine Protein TRACE (NEG); Urine Specific Gravity 1.015 (1.005-1.030); Urine pH 5.5 (5.0-7.0)
== END 2019-01-11 22:39 | disposition home or self-care (01) ==
LOC: ER 15:57
DX: N39.0 Urinary tract infection, site not specified (principal); R21 Rash and other nonspecific skin eruption; I50.9 Heart failure, unspecified; E11.9 Type 2 diabetes mellitus without complications; E78.00 Pure hypercholesterolemia, unspecified; I25.2 Old myocardial infarction; F17.210 Nicotine dependence, cigarettes, uncomplicated; Z88.1 Allergy status to other antibiotic agents; Z88.5 Allergy status to narcotic agent; Z88.0 Allergy status to penicillin; Z88.2 Allergy status to sulfonamides
CPT/HCPCS: 36415; 51702; 80053; 81003; 81015; 85025; 85610; 87077; 87086; 87088; 87186; 99283

== ENCOUNTER 2019-01-24 18:48 | Emergency (ER) | payer OTHER ==
--- OUTSIDE RECORDS SUMMARY | 2019-01-24 18:53 | XMS REPORT | Clinical Summary ---
:1950 Author Organization [facility] Address [address] [place] [address] Care Team Providers Name Role Phone Lucas [...] Dispensed Refills Start End Date Status Date budesonide-formoter Inhale 2 puffs 2 3 Inhaler 3 Active ol (SYMBICORT) (two) times a 7 160-4.5 day. mcg/actuation inhaler aspirin (ECOTRIN) Take 81 mg by 0 Active 81 MG enteric mouth daily. coated tablet nitroglycerin TAKE 1 TABLET BY 3 Active (NITROSTAT) 0.4 MG MOUTH UNDER 8 SL tablet TONGUE EVERY 5 MIN NEEDED FOR CHEST PAIN blood-glucose meter Test daily 1 each 0 Active (ACCU-CHEK YUNIEL before all 8 PLUS METER) misc meals/snacks and once before bedtime. blood sugar Test B.I.D.-DX; 200 strip 1 Active diagnostic strips E11.9 8 (FREESTYLE TEST) strip test strips potassium chloride Take 1 tablet 90 tablet 1 Active (KLOR-CON 10) 10 (10 mEq total) 8 MEQ CR tablet by mouth daily. insulin lispro Inject 20 Units 18 pen 3 Active (HUMALOG) 100 under the skin 3 8 unit/mL injection (three) times a pen day before meals. metoprolol Take 1 tablet 90 tablet 1 Active succinate XL (25 mg total) by 8 (TOPROL-XL) 25 mg mouth daily. 24 hr tablet lisinopril Take 1 tablet (5 90 tablet 1 Active (PRINIVIL,ZESTRIL) mg total) by 8 5 mg tablet mouth daily. BRILINTA 90 mg Take 1 tablet by 180 tablet 0 Active tablet mouth every 12 8 hours atorvastatin Take 1 tablet 90 tablet 0 Active (LIPITOR) 80 MG (80 mg total) by 9 tablet mouth nightly. minocycline Take 1 capsule 60 capsule 0 02/07/20 Active (MINOCIN,DYNACIN) (100 mg total) 9 19 100 MG capsule by mouth 2 (two) times a day for 30 days. fenofibrate Take 1 tablet 0 Active (TRICOR) 145 MG every day by tablet oral route. furosemide (LASIX) furosemide 20 mg tablet 0 Active 20 mg tablet Take 1 tablet by mouth twice daily insulin ASPART Inject 20 units 0 Active (NovoLOG Flexpen 3 times a day by U-100 Insulin) 100 subcutaneous unit/mL insulin pen route. insulin DETEMIR Levemir FlexTouch U-100 Insulin 100 unit/mL (3 mL) subcutaneous pen 0 Active (LEVEMIR FLEXTOUCH Inject 20 units every day by subcutaneous route. U-100 INSULN) 100 unit/mL (3 mL) insulin pen meclizine meclizine 25 mg tablet 0 Active (ANTIVERT) 25 mg Take 1 tablet 3 times a day by oral route. tablet PARoxetine (PAXIL) paroxetine 20 mg tablet 0 Active 20 MG tablet Take 1 tablet by mouth every day traMADol ER tramadol ER 100 mg tablet,extended release 24 hr 0 Active (ULTRAM-ER) 100 mg Take 1 tablet by mouth twice daily. 24 hr tablet albuterol (PROAIR Inhale 2 puffs 0 Active HFA) 90 by mouth every 4 mcg/actuation to 6 hours as inhaler needed tolterodine LA Take 1 capsule 90 capsule 0 Active (DETROL LA) 4 MG 24 (4 mg total) by 9 hr mouth daily. capsuleIndications: Acute cystitis with hematuria pen needle, Use to inject 100 each 0 Active diabetic (PEN insulin 4 times 9 NEEDLE) 32 gauge x daily, E11.6 " needleIndications: Type 2 diabetes mellitus with other specified complication, with long-term current use of insulin (HCC) insulin GLARGINE Inject 20 Units 15 mL 5 Active (LANTUS SOLOSTAR) under the skin 9 100 unit/mL nightly. injection (pen) meclizine Take 25 mg by mouth 2 (two) times a day. 1 tablet po BID 0 Discontinued (ANTIVERT) 25 mg 19 tablet INSULIN ASPART Inject 20 Units 0 01/14/20 Discontinued (NOVOLOG FLEXPEN under the skin 19 SUBQ) nightly. traMADol 100 mg Take 100 mg by 180 capsule 1 03/06/20 Discontinued capsule,ER biphase mouth 2 (two) 6 18 24 hr 25-75 times a day for 90 days. hydrocortisone Take 20 mg by 0 05/21/20 Discontinued (CORTEF) 20 MG mouth as needed. 7 18 tablet fenofibrate Take 1 tablet 90 tablet 1 03/06/20 Discontinued (TRICOR) 145 MG (145 mg total) 7 18 tablet by mouth daily. furosemide (LASIX) Take 20 mg by 0 05/21/20 Discontinued 20 mg tablet mouth 2 (two) 18 times a day. pregabalin (LYRICA) Take 150 mg by 0 09/23/20 Discontinued 150 MG capsule mouth 3 (three) 18 times a day. KLOR-CON 10 10 mEq Take 1 tablet by 90 tablet 0 01/14/20 Discontinued CR tablet mouth daily 7 19 insulin detemir Inject 30 Units 30 mL 1 01/14/20 Discontinued (LEVEMIR) 100 under the skin 7 19 unit/mL injection nightly. fludrocortisone 0.1 Take 1 tablet by 90 tablet 0 02/26/20 Discontinued mg tablet mouth daily 7 18 clonAZEPAM Take 1 tablet by 90 tablet 0 02/09/20 Discontinued (KlonoPIN) 1 MG mouth every 7 18 tablet night at bedtime albuterol (PROAIR Inhale 2 puffs 18 g 1 04/15/20 Discontinued HFA,PROVENTIL every 6 (six) 8 18 HFA,VENTOLIN HFA) hours as needed 90 mcg/actuation for wheezing. inhalerIndications: History of asthma PARoxetine (PAXIL) Take 1 tablet by 90 tablet 0 05/21/20 Discontinued 20 MG tablet mouth every 8 18 morning insulin lispro Inject 20 Units 0 04/15/20 Discontinued (HUMALOG) 100 under the skin 3 18 unit/mL injection (three) times a pen day before meals. insulin GLARGINE Inject 30 Units 0 04/15/20 Discontinued (LANTUS) 100 under the skin 18 unit/mL injection nightly. (vial) traMADol (ULTRAM) Take 1 tablet by 30 tablet 0 02/11/20 Discontinued 50 mg tablet mouth every 6 8 18 hours as needed for moderate pain triamcinolone Apply topically 80 g 1 01/19/20 (KENALOG) 0.025 % 2 (two) times a 8 19 creamIndications: day. Decubitus ulcer of buttock, stage 2, unspecified laterality lisinopril Take 1 tablet (5 90 tablet 0 04/15/20 Discontinued (PRINIVIL,ZESTRIL) mg total) by 8 18 5 mg tablet mouth daily. atorvastatin Take 1 tablet 90 tablet 0 02/09/20 Discontinued (LIPITOR) 80 MG (80 mg total) by 8 18 tablet mouth nightly. metoprolol Take 1 tablet 90 tablet 0 04/15/20 Discontinued succinate XL (25 mg total) by 8 18 (TOPROL-XL) 25 mg mouth daily. 24 hr tablet BRILINTA 90 mg Take 1 tablet 180 tablet 0 06/28/20 Discontinued tablet (90 mg total) by 8 18 mouth every 12 (twelve) hours. clonAZEPAM Take 1 tablet (1 90 tablet 0 03/10/20 (KlonoPIN) 1 MG mg total) by 8 18 tablet mouth nightly for 30 days. atorvastatin Take 1 tablet 90 tablet 1 07/23/20 Discontinued (LIPITOR) 80 MG (80 mg total) by 8 18 tablet mouth nightly. traMADol (ULTRAM) Take 1 tablet by 30 tablet 0 03/13/20 50 mg tablet mouth every 6 8 18 hours as needed for moderate pain minocycline Take 1 capsule 60 capsule 1 03/06/20 Discontinued (MINOCIN,DYNACIN) (100 mg total) 8 18 100 MG capsule by mouth 2 (two) times a day for 30 days. fludrocortisone Take 1 tablet by 90 tablet 0 05/20/20 Discontinued (FLORINEF) 0.1 mg mouth daily 8 18 tablet minocycline Take 1 capsule 60 capsule 1 04/15/20 Discontinued (MINOCIN,DYNACIN) (100 mg total) 8 18 100 MG capsule by mouth 2 (two) times a day for 30 days. fenofibrate Take 1 tablet 90 tablet 1 09/03/20 Discontinued (TRICOR) 145 MG (145 mg total) 8 18 tablet by mouth daily. traMADol 100 mg Take 100 mg by 180 capsule 1 05/21/20 Discontinued capsule,ER biphase mouth 2 (two) 8 18 24 hr 25-75 times a day for 90 days. KLOR-CON 10 10 mEq Take 1 tablet by 90 tablet 0 04/08/20 Discontinued CR tablet mouth daily 8 18 albuterol (PROAIR Inhale 2 puffs 51 g 1 09/27/20 Discontinued HFA,PROVENTIL every 6 (six) 8 18 HFA,VENTOLIN HFA) hours as needed 90 mcg/actuation for wheezing. inhalerIndications: History of asthma metoprolol Take 1 tablet 90 tablet 1 05/21/20 Discontinued succinate XL (25 mg total) by 8 18 (TOPROL-XL) 25 mg mouth daily. 24 hr tablet lisinopril Take 1 tablet (5 90 tablet 1 05/21/20 Discontinued (PRINIVIL,ZESTRIL) mg total) by 8 18 5 mg tablet mouth daily. minocycline Take 1 capsule 180 capsule 1 05/15/20 (MINOCIN,DYNACIN) (100 mg total) 8 18 100 MG capsule by mouth 2 (two) times a day for 30 days. insulin GLARGINE Inject 30 Units 10 vial 3 11/11/19 Discontinued (LANTUS) 100 under the skin 8 19 unit/mL injection nightly. (vial) pen needle, 3 Devices daily. 300 each 1 08/07/20 Discontinued diabetic (TRUEPLUS 8 18 PEN NEEDLE) 32 gauge x 5/32" needle fludrocortisone Take 1 tablet by 90 tablet 0 05/21/20 Discontinued (FLORINEF) 0.1 mg mouth daily 8 18 tablet minocycline Take [...] Discontinued 20 mg tablet (20 mg total) by 8 19 mouth 2 (two) times a day. fludrocortisone Take 1 tablet by 90 tablet 1 08/21/20 (FLORINEF) 0.1 mg mouth daily 8 18 tablet pregabalin (LYRICA) [...] Discontinued 20 MG tablet (20 mg total) by 8 19 mouth every morning. tolterodine LA Take 1 capsule 90 capsule 1 11/26/19 Discontinued (DETROL LA) 4 MG 24 (4 mg total) by 8 19 hr capsule mouth daily. fludrocortisone Take 1 tablet by 90 tablet 0 07/14/20 (FLORINEF) 0.1 mg mouth daily 8 18 tablet clonAZEPAM Take 1 tablet by 90 tablet 0 07/28/20 (KlonoPIN) 1 MG mouth nightly 8 18 tablet KLOR-CON 10 10 mEq Take 1 tablet by 90 tablet 0 01/14/20 Discontinued CR tablet mouth daily 8 19 BRILINTA 90 mg Take 1 tablet by 180 tablet 0 09/23/20 Discontinued tablet mouth every 12 8 18 hours atorvastatin Take 1 tablet by 90 tablet 0 08/27/20 Discontinued (LIPITOR) 80 MG mouth nightly 8 18 tablet pen needle, 3 Devices daily. 300 each 1 09/20/20 Discontinued diabetic (TRUEPLUS 8 18 PEN NEEDLE) 32 gauge x 5/32" needle minocycline [...] for 30 days. atorvastatin Take 1 tablet by 90 tablet 0 10/31/19 Discontinued (LIPITOR) 80 MG mouth nightly 8 19 tablet fenofibrate Take 1 tablet by 90 tablet 0 12/23/19 Discontinued (TRICOR) 145 MG mouth daily 8 19 tablet pen needle, 3 Devices daily. 300 each 1 09/23/20 Discontinued diabetic (TRUEPLUS 8 18 PEN NEEDLE) 32 gauge x 5/32" needle clonAZEPAM Take 1 tablet by 90 tablet 0 12/24/19 (KlonoPIN) 1 MG mouth nightly 8 19 tablet pen needle, Use three 300 each 1 12/24/19 diabetic (BD needles daily to 8 19 ULTRA-FINE ASHOK PEN inject insulin NEEDLE) 32 gauge x 5/32" needle pregabalin (LYRICA) Take 1 capsule 270 capsule 2 12/22/19 150 MG capsule (150 mg total) 8 19 by mouth 3 (three) times a day for 90 days. PROAIR HFA 90 Inhale 2 puffs 34 g 0 01/14/20 Discontinued mcg/actuation by mouth every 6 8 19 inhalerIndications: hours as needed History of asthma for wheezing minocycline Take 1 capsule 60 capsule 0 [...] 10 vial 3 11/26/19 Discontinued (LANTUS) 100 under the skin 9 19 unit/mL injection nightly. (vial) minocycline Take 1 capsule 60 capsule 0 01/08/20 Discontinued (MINOCIN,DYNACIN) (100 mg total) 9 19 100 MG capsule by mouth 2 (two) times a day for 30 days. insulin GLARGINE Inject 30 Units 10 vial 3 11/26/19 Discontinued (LANTUS) 100 under the skin 9 19 unit/mL injection nightly. (vial) insulin GLARGINE Inject 30 Units 10 vial 3 01/14/20 Discontinued (LANTUS) 100 under the skin 9 19 unit/mL injection nightly. (vial) furosemide (LASIX) Take 1 tablet 180 tablet 1 01/14/20 Discontinued 20 mg tablet (20 mg total) by 9 mouth 2 (two) times a day. PARoxetine (PAXIL) Take 1 tablet 90 tablet 1 01/14/20 Discontinued 20 MG tablet (20 mg total) by 9 19 mouth every morning. tolterodine LA Take 1 capsule 90 capsule 1 12/13/19 Discontinued (DETROL LA) 4 MG 24 (4 mg total) by 9 19 hr capsule mouth daily. tolterodine LA Take 1 capsule 90 capsule 1 12/23/19 Discontinued (DETROL LA) 4 MG 24 (4 mg total) by 9 19 hr capsule mouth daily. tolterodine LA Take 1 capsule 90 capsule 1 01/14/20 Discontinued (DETROL LA) 4 MG 24 (4 mg total) by 9 19 hr capsule mouth daily. traMADol 100 mg Take 100 mg by 180 capsule 1 01/14/20 Discontinued capsule,ER biphase mouth 2 (two) 9 19 24 hr 25-75 times a day for 90 days. fenofibrate Take 1 tablet 90 tablet 1 01/14/20 Discontinued (TRICOR) 145 MG (145 mg total) 9 19 tablet by mouth daily. insulin GLARGINE 0 01/23/20 Discontinued (LANTUS SOLOSTAR) 19 100 unit/mL injection (pen) potassium chloride potassium chloride ER 10 mEq tablet,extended release(part/ cryst) 0 01/14/20 Discontinued (K-DUR,KLOR-CON) 10 Take 1 tablet by mouth every day 19 MEQ CR tablet tolterodine LA 0 01/14/20 Discontinued (DETROL LA) 4 MG 24 8 19 hr capsule ciprofloxacin HCl Take 1 tablet 14 tablet 0 01/17/20 Discontinued (CIPRO) 250 MG (250 mg total) 9 tabletIndications: by mouth 2 (two) Acute cystitis with times a day for hematuria 7 days. cefpodoxime Take 1 tablet 14 tablet 0 01/17/20 Discontinued (VANTIN) 200 MG (200 mg total) 9 19 tabletIndications: by mouth 2 (two) ESBL (extended times a day for spectrum 7 days. beta-lactamase) producing bacteria infection cefpodoxime Take 1 tablet 14 tablet 0 01/24/20 (VANTIN) 200 MG (200 mg total) 9 tabletIndications: by mouth 2 (two) ESBL (extended times a day for spectrum 7 days. beta-lactamase) producing bacteria infection Active Problems Problem Noted Date Rash 04/08/2018 Decubitus ulcer of sacral region, stage 2 03/06/[address] disease of [place] [place] artery of [place] heart with stable 2017 angina pectoris History [...] Encounters Date Type Specialty Care Team Description 01/24/2019 Telephone Family Medicine Jeannie Ken MA 01/22/2019 Orders Only Family Medicine Lucas Stafford DO 01/16/2019 Orders Only Family Medicine Pop Navarro ESBL (extended spectrum MD beta-lactamase) producing bacteria infection (Primary Dx) 01/16/2019 Orders Only Family Medicine Pop Navarro E-coli UTI ( Primary Dx) 01/13/2019 Office Visit Family Medicine Lucas Stafford, Acute cystitis with hematuria (Primary Dx); DO Type 2 diabetes mellitus with other specified complication, with long-term current use of insulin (HCC); Pop Navarro, Rash; Psoriasis 01/10/2019 Telephone Family Medicine Dora Vaca LVN 01/07/2019 Orders Only Family Medicine Lucas Stafford, 01/03/2019 Refill Family Medicine Lingamfelter, R Osbaldo, [...] DO 09/27/2018 Refill Family Medicine Lingamfelter, R Osbaldo, History of asthma DO 09/23/2018 Orders Only Family Medicine Lingamfelter, R Osbaldo, DO 09/23/2018 Orders Only Family Medicine Lingamfelter, R Osbaldo, DO 09/23/2018 Refill Family Medicine Lingamfelter, R Osbaldo, DO 09/23/2018 Telephone Family Medicine Dora Vaca, MILLINERY COPYIST 09/21/2018 Refill Family Medicine Lingamfelter, R Osbaldo, DO 09/20/2018 Refill Family Medicine Lingamfelter, R Osbaldo, DO 09/03/2018 Refill Family Medicine Lingamfelter, R Osbaldo, DO 08/27/2018 Refill Family Medicine Lingamfelter, R Osbaldo, DO 08/21/2018 Orders Only Family Medicine Lingamfelter, R Osbaldo, DO 08/21/2018 Telephone Internal Medicine Jose TellodidierSARAH 08/07/2018 Office Visit Family Medicine Mayeamfelter, R Osbaldo, Diabetic neuropathy with neurologic complication (HCC) (Primary Dx); DO Pressure injury of contiguous region involving back, buttock, and hip , stage 1, unspecified laterality 08/03/2018 Refill Endocrinology Munira Lemus MD 07/23/2018 Refill Family Medicine Lingamfelter, R Osbaldo, DO 07/01/2018 Orders Only Family Medicine Lingamfelter, R Osbaldo, DO 06/28/2018 Refill Family Medicine Lingamfelter, R Osbaldo, DO 06/15/2018 Refill Endocrinology Munira Lemus MD 06/13/2018 Refill Family Medicine Lingamfelter, R Osbaldo, DO 05/21/2018 Office Visit Family Medicine Lingamfelter, R Osbaldo, 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 ( Primary Dx); DO Diabetic neuropathy with neurologic complication 05/20/2018 [...] Orders Only Family Medicine Lingamfelter, R Osbaldo, History of asthma DO 04/14/2018 Refill Family Medicine Pop Navarro, History of asthma MD 04/14/2018 Refill Family Medicine Lingamfelter, R Osbaldo, DO 04/08/2018 Office Visit Family Medicine Lingamfelter, R Osbaldo, Pressure ulcer of contiguous region involving back, buttock, and hip, stage 1, unspecified laterality (Primary Dx); DO Rash 03/31/2018 Refill Family Lucas Gilliland, DO 03/06/2018 Office Visit Family Lucas Gilliland, 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 ( Primary Dx); DO Decubitus ulcer of sacral region, stage 2 02/25/2018 Refill Lucas Oscar, DO 02/20/2018 Office Visit Lucas Oscar, Pain in buttock (Primary Dx); DO Pressure ulcer of contiguous region involving back and right buttock , stage 2 02/10/2018 Refill Family Lucas Gilliland, DO 02/08/2018 Orders Only Family Lucas Gilliland, DO 02/06/2018 Refill Family Lucas Gilliland, DO after 01/23/2018 Immunizations Name Dates Previously Given Next Due [...] Counseling Given: Yes Comments: quitting now on 1/2 day Alcohol Use Drinks/Week oz/Week Comments No Sex Assigned at Date Recorded Not on file Job Start Date Occupation Industry Not on file Not on file Not on file Travel History Travel Start Travel End No recent travel history available. Last Filed Vital Signs Vital Sign Reading Time Taken Blood Pressure 130/61 01/13/2019 12:03 PM CDT Pulse 76 01/13/2019 12:03 PM CDT Temperature 36.8 C (98.3 F) 01/13/2019 12:03 PM CDT Respiratory Rate 20 01/13/2019 12:03 PM CDT Oxygen Saturation 94% 01/13/2019 12:03 PM CDT Inhaled Oxygen Concentration - - Weight 94.8 kg (209 lb) 01/13/2019 12:03 PM CDT Height 167.6 cm (5' 6") 01/13/2019 12:03 PM CDT Body Mass Index 33.73 01/13/2019 12:03 PM CDT Plan of Treatment Health Maintenance Due Date Last Done Comments [...] Additional history exists Implants Implanted Type Area Winder Helper Device Shelf Model / Identifier Expiration Serial / Lot Date Lens Iol Asprc Asymet Bicnvx Ant +17.5d 0deg 6x13mm - [id number] - [id number] Intraocular Right: JED 02/25/2021 [id number] / Implanted: Qty: 1 on 03/14/2017 by Ilir Lopez DO [employer] [id number] / INC [id number] Lens Iol Asprc Asymet Bicnvx Ant +17.0d 0deg 6x13mm - [id number] - [id number] Intraocular Left: JED 02/25/2021 [id number] 170 / Implanted: Qty: 1 on 06/06/2017 by Ilir Lopez DO [employer] [id number] / [id number] Procedures Procedure Name Priority Date/Time Associated Diagnosis Comments URINE CULTURE Routine 01/13/2019 12:30 Acute cystitis with Results for this PM CDT hematuria procedure are in the results section. POC URINALYSIS Routine 01/13/2019 12:27 Acute cystitis with Results for this DIPSTICK PM CDT hematuria procedure are in the results section. URINALYSIS, MICRO UA Routine 05/21/2018 12:15 Diabetic [...] for this DIFFERENTIAL PM CDT disease of [facility] [place] procedure are in artery of [facility] [place] the results heart with stable section. angina pectoris HEMOGLOBIN A1C Routine 05/21/2018 12:15 Diabetic neuropathy Results for this PM CDT with neurologic procedure are in complication the results section. MICROALBUMIN / Routine 05/21/2018 12:15 Diabetic neuropathy Results for this CREATININE URINE RATIO PM CDT with neurologic procedure are in complication the results section. after 01/23/2018 Results Urine culture (01/13/2019 12:30 PM CDT) Urine culture SEE NOTE (A) [facility] [place] Comment: CULTURE, URINE, ROUTINE MICRO NUMBER:[id number] TEST STATUS: FINAL SPECIMEN SOURCE: URINE SPECIMEN QUALITY:ADEQUATE RESULT:Greater than 100,000 CFU/mL of Escherichia coli (ESBL) E.coli (ESBL) INT ROBER AMOX/CLAVULANATE S 8 AMPICILLIN R >=32 1 AMP/SULBACTAMI 16 CEFAZOLINNR<=4 3 CEFEPIME S <=1 CEFTRIAXONES <=1 CIPROFLOXACINR >=4 GENTAMICIN S <=1 IMIPENEM S <=0.25 LEVOFLOXACIN R >=8 NITROFURANTOIN S <=16 TOBRAMYCIN S <=1 TRIMETHOPRIM/SULFA R >=320 ESBL RESULT: * 4 S=SusceptibleI=IntermediateR=Resistant*=Not Tested NR=Not ReportedNN=See Therapy Comments THERAPY COMMENTS Note 1: Extended spectrum beta-lactamase (ESBL) producing organisms demonstrate decreased activity with penicillins, cephalosporins and aztreonam. Note 2: For infections other than uncomplicated UTI caused by E. coli, K. pneumoniae or P. mirabilis: Cefazolin is resistant if ROBER > or=8 mcg/mL. (Distinguishing susceptible versus intermediate for isolates with ROBER < or=4 mcg/mL requires additional testing.) Note 3: For uncomplicated UTI caused by E. coli, K. pneumoniae or P. mirabilis: Cefazolin is susceptible if ROBER <32 mcg/mL and predicts susceptible to the oral agents cefaclor, cefdinir, cefpodoxime, cefprozil, cefuroxime, cephalexin and loracarbef. Note 4: The organism has been confirmed as an ESBL morning news producer. Specimen Urine Resulting Agency Comment Performing Organization Information: Site ID: [id number] Name: [facility] Address: [address] [place] [id number] Director: Hemalatha Davies Performing Organization Address [facility] Phone Number [facility] [address] [address] POC urinalysis dipstick (01/13/2019 12:27 PM CDT) Color urine, POC Yellow Clarity urine, POC Cloudy Glucose urine, POC 3+ (A) Negative Bilirubin urine, POC Negative Negative Ketones urine, POC 2+ (A) Negative Specific gravity urine, POC 1.015 1.005 - 1.030 Blood urine, POC Large (A) Negative pH urine, POC 5.0 5.0, 5.5, 6.0, 6.5, 7.0, 7.5, 8.0, 8.5 Protein urine, POC 3+ (A) Negative Urobilinogen urine, POC >8.0 (A) <2.0 Nitrite urine, POC Negative Negative Leukocyte esterase urine, POC Trace (A) Negative Specimen Urine Urinalysis, micro UA screen with microscopy (05/21/2018 12:15 PM CDT) WBC, UA NONE SEEN < OR=5 /HPF [facility] [place] RBC, UA NONE SEEN < OR=2 /HPF [facility] [place] Squamous epithelial cells, UA NONE SEEN < OR=5 /HPF [facility] [place] Bacteria, UA NONE SEEN NONE SEEN /HPF [facility] [place] Hyaline casts, UA NONE SEEN NONE SEEN /LPF [facility] [place] Specimen Urine Narrative Performed At FASTING:NO [facility] FASTING: NO Resulting Agency Comment Performing Organization Information: Site ID: [id number] Name: [facility] Address: [address] [place] [id number] Director: Hemalatha Davies Performing Organization Address [facility] Cent[facility]ode Phone Number [facility] [address] [address] Microalbumin / creatinine urine ratio (05/21/2018 12:15 PM CDT) Creatinine, urine, 31 20 - 320 mg/dL [facility] [place] Microalbumin, urine <0.2 See Note: mg/dL [facility] Comment: [place] Reference Range: Reference Range Not established Results verified by repeat analysis on dilution. Microalbumin/creatini NOTE <30 mcg/mg creat [facility] ne ratio Comment: [place] The microalbumin value is less than 0.2 mg/dL therefore we are unable to calculate excretion and/or creatinine ratio. The ADA defines abnormalities in albumin excretion as follows: Category Result (mcg/mg creatinine) Normal<30 Microalbuminuria 30-299 Clinical albuminuria > QQ=320 The ADA recommends that at least two of three specimens collected within a 3-6 month period be abnormal before considering a patient to be within a diagnostic category. Specimen Urine Narrative Performed At FASTING:NO [facility] FASTING: NO Resulting Agency Comment Performing Organization Information: Site ID: [id number] Name: [facility] Address: [address] [place] [phone] Director: Hemalatha Davies Performing Organization Address City/State/Zipcode Phone Number [facility] [place] [phone] CBC with platelet and differential (05/21/2018 12:15 PM CDT) WBC 6.3 3.8 - 10.8 Thousand/uL [facility] [place] RBC 5.13 (H) 3.80 - 5.10 Million/uL [facility] [place] HGB 14.7 11.7 - 15.5 g/dL [facility] [place] HCT 43.7 35.0 - 45.0 % [facility] [place] MCV 85.2 80.0 - 100.0 fL [facility] [place] MCH 28.7 27.0 - 33.0 pg [facility] [place] MCHC 33.6 32.0 - 36.0 g/dL [facility] [place] RDW 13.4 11.0 - 15.0 % [facility] [place] Platelet count 189 140 - 400 Thousand/uL [facility] [place] MPV 10.4 7.5 - 12.5 fL [facility] [place] Neutrophils, absolute 2,344 1,500 - 7,800 cells/uL [facility] [place] Lymphocytes, absolute 2,948 850 - 3,900 cells/uL [facility] [place] Monocytes, absolute 662 200 - 950 cells/uL [facility] [place] Eosinophils, absolute 277 15 - 500 cells/uL [facility] [employer] [place] Basophils, absolute 69 0 - 200 cells/uL [facility] [employer] [place] Neutrophils 37.2 % [facility] [place] Lymphocytes 46.8 % [facility] [place] Monocytes 10.5 % [facility] [place] Eosinophils 4.4 % [facility] [place] Basophils + RC 1.1 % [facility] [place] Specimen Blood Narrative Performed At FASTING:NO [facility] FASTING: NO Resulting Agency Comment Performing Organization Information: Site ID: [id number] Name: [facility] Address: [address] [place] [phone] Director: Hemalatha Davies Performing Organization Address [facility] [facility] Phone Number [facility] [place] [address] Hemoglobin A1c (05/21/2018 12:15 PM CDT) Hemoglobin A1C 10.9 (H) <5.7 % of total [facility] Comment: Hgb [place] For someone without known diabetes, a hemoglobin [...] Performing Organization Information: Site ID: [id number] Name: [facility] Address: [address] [place] [id number] Director: Hemalatha Davies Performing Organization Address [facility] Phone Number [facility] [place] [place] [address] Lipid panel (05/21/2018 12:15 PM CDT) Cholesterol, total 121 <200 mg/dL [facility] [place] HDL cholesterol 29 (L) >50 mg/dL [facility] [place] Triglycerides 279 (H) <150 mg/dL [facility] [place] LDL cholesterol 59 mg/dL (calc) [facility] Comment: [place] Reference range: <100 Desirable range <100 mg/dL for primary prevention; <70 mg/dL for patients with CHD or diabetic patients with > or=2 CHD risk factors. LDL-C is now calculated using the Jeanette calculation, which is a validated novel method providing better accuracy than the Friedewald equation in the estimation of LDL-C. Oumar CHI et al. GURINDER. 2013;310(19): 8400-8464 (http://education.[employer]/faq/RTA352) Cholesterol/HDL ratio 4.2 <5.0 (calc) [facility] Non-HDL cholesterol 92 <130 mg/dL [facility] Comment: (calc) [place] For patients with diabetes plus 1 major ASCVD risk factor, treating to a non-HDL-C goal of <100 mg/dL (LDL-C of <70 mg/dL) is considered a therapeutic option. Specimen Blood Narrative Performed At FASTING:NO [facility] FASTING: NO Resulting Agency Comment Performing Organization Information: Site ID: [id number] Name: [facility] Lab Address: [address] [place] [phone] Director: Hemalatha Davies Performing Organization Address City/State/Zipcode Phone Number [facility] [place] [phone] Comprehensive metabolic panel (05/21/2018 12:15 PM CDT) Glucose 215 (H) 65 - 139 mg/dL [facility] Comment: [place] Non-fasting reference interval BUN, whole blood 14 7 - 25 mg/dL [facility] Creatinine 0.79 0.50 - 0.99 [facility] Comment: mg/dL [place] For patients >49 years of age, the reference limit for Creatinine is approximately 13% higher for people identified as -Ivorian. EGFR Non-Afr. Ivorian 77 > OR=60 [facility] mL/min/1.73m2 [place] EGFR 89 > OR=60 [facility] mL/min/1.73m2 [place] BUN/creatinine ratio NOT APPLICABLE 6 - 22 (calc) [facility] Sodium 140 135 - 146 mmol/L [facility] [place] Potassium 3.7 3.5 - 5.3 mmol/L [facility] [place] Chloride 103 98 - 110 mmol/L [facility] CO2 26 20 - 31 mmol/L [facility] [place] Calcium 9.2 8.6 - 10.4 mg/dL [facility] Protein 6.3 6.1 - 8.1 g/dL [facility] Albumin, S 3.6 3.6 - 5.1 g/dL [facility] [place] Globulin, total 2.7 1.9 - 3.7 g/dL [facility] (calc) [place] Albumin/globulin ratio 1.3 1.0 - 2.5 (calc) [facility] [place] Total bilirubin 0.5 0.2 - 1.2 mg/dL [facility] [place] Alkaline phosphatase 58 33 - 130 U/L [facility] [place] AST 26 10 - 35 U/L [facility] [place] ALT 21 6 - 29 U/L [facility] [place] Specimen Blood Narrative Performed At FASTING:NO [facility] FASTING: NO Resulting Agency Comment Performing Organization Information: Site ID: [id number] Name: [facility] Address: [address] [place] [phone] Director: Hemalatha Davies Performing Organization Address City/State/Zipcode Phone Number [employer] [place] [address] [place] [phone] after 01/23/2018 Insurance Payer Benefit Plan / Group Subscriber ID Type Phone Address [facility] xxxxxxxxxxx Advance Directives Patient has advance care planning documents on file. For more information, please contact:[place] [address]
--- NOTE | 2019-01-24 19:50 | EDPHYS ---
Physician Documentation [facility] Name: Marlena Dia Age: 68 yrs Sex: Female : 1950 Arrival Date: 01/24/2019 Time: 18:52 Bed 23 Private MD: ED Physician Yossi Sánchez HPI: 01/24 19:50 This 68 yrs old Female presents to ER via Ambulatory with complaints of jr8 Urinary Problem. 19:50 The patient presents with urinary symptoms, dysuria, frequency, urgency. Onset: The jr8 symptoms/episode began/occurred gradually, 2 week(s) ago. Modifying factors: The symptoms are alleviated by nothing, the symptoms are aggravated by urinating. Associated signs and symptoms: The patient has no apparent associated signs or symptoms. Severity of symptoms: At their worst the symptoms were mild, in the emergency department the symptoms are unchanged. The patient has not experienced similar symptoms in the past. The patient has been recently seen by a physician:. Patient seen here two weeks ago and left AMA before urine results for suspected UTI. Has had continued pain. Went to PCP and had urine done and was told to go to ED for IV antibiotics . Historical: - Allergies: 19:08 Codeine; sg 19:08 Demerol; sg 19:08 diazepam; sg 19:08 Iodine; sg 19:08 novocaine; sg 19:08 PENICILLINS; sg 19:08 procaine HCl; sg 19:08 Propoxyphene HCl; sg 19:08 propoxyphene napsylate; sg 19:08 Sulfa (Sulfonamide Antibiotics); sg 19:08 Valium; sg 19:08 Vicodin; sg - PMHx: 19:08 CHF; Diabetes - IDDM; Diabetes - NIDDM; High Cholesterol; Myocardial infarction; sg PERIPHERAL NEUROPATHY; - PSHx: 19:08 Heart stents; sg - Immunization history:: Adult Immunizations up to date. - Social history:: Smoking status: Patient/guardian denies using tobacco. - Ebola Screening: : Patient negative for fever greater than or equal to 101.5 degrees Fahrenheit, and additional compatible Ebola Virus Disease symptoms Patient denies exposure to infectious person Patient denies travel to an Ebola-affected area in the 21 days before illness onset No symptoms or risks identified at this time. ROS: 19:50 Eyes: Negative for injury, pain, redness, and discharge, ENT: Negative for injury, jr8 pain, and discharge, Neck: Negative for injury, pain, and swelling, Cardiovascular: Negative for chest pain, palpitations, and edema, Respiratory: Negative for shortness of breath, cough, wheezing, and pleuritic chest pain, Abdomen/GI: Negative for abdominal pain, nausea, vomiting, diarrhea, and constipation, Back: Negative for injury and pain, MS/Extremity: Negative for injury and deformity, Skin: Negative for injury, rash, and discoloration, Neuro: Negative for headache, weakness, numbness, tingling, and seizure. 19:50 : Positive for urinary symptoms. Exam: 19:50 Eyes: Pupils equal round and reactive to light, extra-ocular motions intact. Lids and jr8 lashes normal. Conjunctiva and sclera are non-icteric and not injected. Cornea within normal limits. Periorbital areas with no swelling, redness, or edema. ENT: Nares patent. No nasal discharge, no septal abnormalities noted. Tympanic membranes are normal and external auditory canals are clear. Oropharynx with no redness, swelling, or masses, exudates, or evidence of obstruction, uvula midline. Mucous membranes moist. Neck: Trachea midline, no thyromegaly or masses palpated, and no cervical lymphadenopathy. Supple, full range of motion without nuchal rigidity, or vertebral point tenderness. No Meningismus. Cardiovascular: Regular rate and rhythm with a normal S1 and S2. No gallops, murmurs, or rubs. Normal PMI, no JVD. No pulse deficits. Respiratory: Lungs have equal breath sounds bilaterally, clear to auscultation and percussion. No rales, rhonchi or wheezes noted. No increased work of breathing, no retractions or nasal flaring. Abdomen/GI: Soft, non-tender, with normal bowel sounds. No distension or tympany. No guarding or rebound. No evidence of tenderness throughout. Back: No spinal tenderness. No costovertebral tenderness. Full range of motion. Skin: Warm, dry with normal turgor. Normal color with no rashes, no lesions, and no evidence of cellulitis. MS/ Extremity: Pulses equal, no cyanosis. Neurovascular intact. Full, normal range of motion. Neuro: Awake and alert, GCS 15, oriented to person, place, time, and situation. Cranial nerves II-XII grossly intact. Motor strength 5/5 in all extremities. Sensory grossly intact. Cerebellar exam normal. Normal gait. Vital Signs: 19:09 BP 132 / 88; Pulse 101; Resp 20; Pulse Ox 96% on R/A; Weight 115.67 kg; sg 19:33 BP 115 / 66; Pulse 78; Resp 16; Pulse Ox 95% on R/A; jb4 MDM: 19:35 Patient medically screened. jr8 19:48 Data reviewed: vital signs, nurses notes, old medical records, and as a result, I will jr8 discharge patient. Data interpreted: Pulse oximetry: on room air is 96 %. Interpretation: normal. Counseling: I had a detailed discussion with the patient and/or guardian regarding: the historical points, exam findings, and any diagnostic results supporting the discharge/admit diagnosis, the need for outpatient follow up, a family practitioner, to return to the emergency department if symptoms worsen or persist or if there are any questions or concerns that arise at home. ED course: Pulled recent culture report on urine. Patient Macrobid sensitive. Will start her on this . Administered Medications: No medications were administered Disposition: 01/24/19 19:49 Discharged to Home. Impression: Urinary tract infection, site not specified. - Condition is Stable. - Discharge Instructions: Dysuria, Urinary Tract Infection, Adult. - Prescriptions for Macrobid 100 mg Oral Capsule - take 1 capsule by ORAL route every 12 hours for 7 days; 14 capsule. - Medication Reconciliation Form, Thank You Letter, Antibiotic Education, Prescription Opioid Use form. - Follow up: Private Physician; When: 2 - 3 days; Reason: Recheck today's complaints, Continuance of care, Re-evaluation by your physician. - Problem is new. - Symptoms have improved. Addendum: 01/27/2019 11:10 Co-signature as Attending Physician, Yossi Sánchez MD I agree with the assessment and c andujar plan of care. Signatures: Eloy De Santiago RN Yossi Mendes MD MD cha Roszak, Josh, PA PA jr8 Joselito Stephens RN RN jb4 Corrections: (The following items were deleted from the chart) 01/24 19:56 19:49 01/24/2019 19:49 Discharged to Home. Impression: Urinary tract infection, site jb4 not specified. Condition is Stable. Forms are Medication Reconciliation Form, Thank You Letter, Antibiotic Education, Prescription Opioid Use. Follow up: Private Physician; When: 2 - 3 days; Reason: Recheck today's complaints, Continuance of care, Re-evaluation by your physician. Problem is new. Symptoms have improved. jr8
--- NOTE | 2019-01-24 19:50 | ER ---
Nurse's Notes [facility] Name: Marlena Dia Age: 68 yrs Sex: Female : 1950 Arrival Date: 01/24/2019 Time: 18:52 Bed 23 Private MD: Diagnosis: Urinary tract infection, site not specified Presentation: 01/24 19:06 Presenting complaint: Patient states: My doctor in [place], ran my urine sg and the culture said there is E Coli in my urine so they told me to stop taking the Cipro and come to an ER so that they can test me and start me on a different IV antibiotic. Transition of care: patient was not received from another setting of care. Onset of symptoms was January 24, 2019. Risk Assessment: Do you want to hurt yourself or someone else? Patient reports no desire to harm self or others. Initial Sepsis Screen: Does the patient meet any 2 criteria? No. Patient's initial sepsis screen is negative. Does the patient have a suspected source of infection? Yes: Dysuria/Frequency/Urgency/UTI. Care prior to arrival: None. 19:06 Method Of Arrival: Ambulatory sg 19:06 Acuity: RAVI 3 sg Historical: - Allergies: 19:08 Codeine; sg 19:08 Demerol; sg 19:08 diazepam; sg 19:08 Iodine; sg 19:08 novocaine; sg 19:08 PENICILLINS; sg 19:08 procaine HCl; sg 19:08 Propoxyphene HCl; sg 19:08 propoxyphene napsylate; sg 19:08 Sulfa (Sulfonamide Antibiotics); sg 19:08 Valium; sg 19:08 Vicodin; sg - PMHx: 19:08 CHF; Diabetes - IDDM; Diabetes - NIDDM; High Cholesterol; Myocardial infarction; sg PERIPHERAL NEUROPATHY; - PSHx: 19:08 Heart stents; sg - Immunization history:: Adult Immunizations up to date. - Social history:: Smoking status: Patient/guardian denies using tobacco. - Ebola Screening: : Patient negative for fever greater than or equal to 101.5 degrees Fahrenheit, and additional compatible Ebola Virus Disease symptoms Patient denies exposure to infectious person Patient denies travel to an Ebola-affected area in the 21 days before illness onset No symptoms or risks identified at this time. Screenin:08 Abuse screen: Denies threats or abuse. Nutritional screening: No deficits noted. jb4 Tuberculosis screening: No symptoms or risk factors identified. Fall Risk None identified. Assessment: 19:08 General: Appears in no apparent distress. uncomfortable, Behavior is calm, cooperative, jb4 appropriate for age. Pain: Denies pain. Neuro: Level of Consciousness is awake, alert, obeys commands, Oriented to person, place, time, situation. Cardiovascular: Patient's skin is warm and dry. Respiratory: Airway is patent Respiratory effort is even, unlabored, Respiratory pattern is regular, symmetrical. GI: No signs and/or symptoms were reported involving the gastrointestinal system. : Reports burning with urination, pain with urination, urinary frequency. EENT: No signs and/or symptoms were reported regarding the EENT system. Derm: Skin is intact, Skin is pink, warm \T\ dry. Musculoskeletal: Circulation, motion, and sensation intact. 19:54 Reassessment: Patient appears in no apparent distress at this time. Patient and/or jb4 family updated on plan of care and expected duration. Pain level reassessed. Patient is alert, oriented x 3, equal unlabored respirations, skin warm/dry/pink. Vital Signs: 19:09 BP 132 / 88; Pulse 101; Resp 20; Pulse Ox 96% on R/A; Weight 115.67 kg; sg 19:33 BP 115 / 66; Pulse 78; Resp 16; Pulse Ox 95% on R/A; jb4 ED Course: 18:52 Patient arrived in ED. mr 18:59 Joselito Stephens, RN is Primary Nurse. jb4 19:07 Triage completed. sg 19:07 Arm band placed on. sg 19:08 Patient has correct armband on for positive identification. Bed in low position. Call jb4 light in reach. Side rails up X 1. Pulse ox on. NIBP on. 19:35 Harris Ramsey PA is PHCP. jr8 19:35 Yossi Sánchez MD is Attending Physician. jr8 19:55 No provider procedures requiring assistance completed. Patient did not have IV access jb4 during this emergency room visit. Administered Medications: No medications were administered Outcome: 19:49 Discharge ordered by . jr8 19:55 Discharged to home ambulatory. jb4 19:55 Condition: stable 19:55 Discharge instructions given to patient, Instructed on discharge instructions, follow up and referral plans. medication usage, Demonstrated understanding of instructions, follow-up care, medications, Prescriptions given X 1. 19:56 Patient left the ED. jb4 Signatures: Eloy De Santiago, Celestina Abdullahi RN mr Harris aRmsey PA PA jr8 Joselito Stephens RN RN jb4
[2019-01-24 20:59] VITALS: BP 115/66; O2SAT 95
== END 2019-01-24 19:56 | disposition home or self-care (01) ==
LOC: ER 18:48
DX: N39.0 Urinary tract infection, site not specified (principal); I25.2 Old myocardial infarction; Z88.2 Allergy status to sulfonamides; Z88.5 Allergy status to narcotic agent; Z88.8 Allergy status to other drugs, medicaments and biological substances; Z95.818 Presence of other cardiac implants and grafts
CPT/HCPCS: 99283

== ENCOUNTER 2019-03-14 13:49 | Emergency (ER) | payer OTHER ==
--- OUTSIDE RECORDS SUMMARY | 2019-03-14 13:56 | XMS REPORT | Clinical Summary ---
:1950 Author Organization [facility] Address [address] [place] [address] Care Team Providers Name Role Phone Lucas [...] 8 MEQ CR tablet by mouth daily. metoprolol Take 1 tablet 90 tablet 1 Active succinate XL (25 mg total) by 8 (TOPROL-XL) 25 mg mouth daily. 24 hr tablet lisinopril Take 1 tablet (5 90 tablet 1 Active (PRINIVIL,ZESTRIL) mg total) by 8 5 mg tablet mouth daily. fenofibrate Take 1 tablet 0 Active (TRICOR) [...] Take 1 tablet by mouth every day albuterol (PROAIR Inhale 2 puffs 0 Active [...] with long-term current use of insulin (HCC) BRILINTA 90 mg Take 1 tablet 180 tablet 1 Active tablet (90 mg total) by 9 mouth every 12 (twelve) hours. insulin lispro Inject 20 Units 18 pen 3 Active (HUMALOG) 100 under the skin 3 9 unit/mL injection (three) times a pen day before meals. atorvastatin Take 1 tablet 90 tablet 0 Active (LIPITOR) 80 MG (80 mg total) by 9 tablet mouth nightly. fludrocortisone Take 1 tablet by 90 tablet 1 05/13/20 Active (FLORINEF) 0.1 mg mouth daily 9 19 tablet clonAZEPAM Take 1 tablet (1 90 tablet 0 05/13/20 Active (KlonoPIN) 1 MG mg total) by 9 19 tablet mouth nightly for 92 days. insulin GLARGINE Inject 20 Units 15 mL 5 Active (LANTUS SOLOSTAR) under the skin 9 100 unit/mL nightly. injection (pen) pregabalin (LYRICA) Take 1 capsule 270 capsule 2 05/25/20 Active 150 MG capsule (150 mg total) 9 19 by mouth 3 (three) times a day for 90 days. nitrofurantoin, 0 Active macrocrystal-monohy 9 drate, (MACROBID) 100 MG capsule minocycline Take 1 capsule 60 capsule 0 04/11/20 Active (MINOCIN,DYNACIN) (100 mg total) 9 19 100 MG capsule by mouth 2 (two) times a day for 30 days. traMADol ER tramadol ER 100 mg tablet,extended release 24 hr 180 tablet 0 06/11/20 Active (ULTRAM-ER) 100 mg Take 1 tablet by mouth twice daily. 9 19 24 hr tablet meclizine Take 25 mg by mouth 2 (two) times a day. 1 tablet po BID 0 Discontinued (ANTIVERT) 25 mg 19 tablet INSULIN ASPART Inject 20 Units 0 01/14/20 Discontinued (NOVOLOG FLEXPEN under the skin 19 SUBQ) nightly. hydrocortisone Take 20 mg by 0 05/21/20 Discontinued (CORTEF) 20 MG mouth as needed. 7 18 tablet furosemide (LASIX) Take 20 mg by 0 [...] the skin 7 19 unit/mL injection nightly. albuterol (PROAIR Inhale 2 puffs 18 g [...] the skin 18 unit/mL injection nightly. (vial) triamcinolone Apply topically 80 g 1 01/19/20 (KENALOG) 0.025 % 2 (two) times a 8 19 creamIndications: day. Decubitus ulcer of buttock, stage 2, unspecified laterality lisinopril Take 1 tablet (5 90 tablet 0 04/15/20 Discontinued (PRINIVIL,ZESTRIL) mg total) by 8 18 5 mg tablet mouth daily. metoprolol Take 1 tablet 90 tablet 0 04/15/20 Discontinued succinate XL (25 mg total) by 8 18 (TOPROL-XL) 25 mg mouth daily. 24 hr tablet BRILINTA 90 mg Take 1 tablet 180 tablet 0 06/28/20 Discontinued tablet (90 mg total) by 8 18 mouth every 12 (twelve) hours. atorvastatin Take 1 tablet 90 tablet 1 07/23/20 Discontinued (LIPITOR) 80 MG (80 mg total) by 8 18 tablet mouth nightly. traMADol (ULTRAM) Take 1 tablet by 30 tablet 0 02/11/20 Discontinued 50 mg tablet mouth every 6 8 19 hours as needed for moderate pain fludrocortisone Take 1 tablet by 90 tablet [...] skin 8 19 unit/mL injection nightly. (vial) insulin lispro Inject 20 Units 18 pen 3 02/11/20 Discontinued (HUMALOG) 100 under the skin 3 8 19 unit/mL injection (three) times a pen day before meals. pen needle, 3 Devices daily. 300 each [...] Take 1 tablet by 90 tablet 1 02/11/20 Discontinued (FLORINEF) 0.1 mg mouth daily 8 19 tablet pregabalin (LYRICA) Take 1 capsule 180 [...] Take 1 tablet by 90 tablet 0 02/11/20 Discontinued (KlonoPIN) 1 MG mouth nightly 8 19 tablet BRILINTA 90 mg Take 1 tablet by 180 tablet 0 01/28/20 Discontinued tablet mouth every 12 8 19 hours pen needle, Use three 300 each 1 12/24/19 diabetic (BD needles daily to 8 19 ULTRA-FINE ASHOK PEN inject insulin NEEDLE) 32 gauge x 5/32" needle pregabalin (LYRICA) Take 1 capsule 270 capsule 2 11/26/201 04/23/20 Discontinued 150 MG capsule (150 mg total) 8 [...] 25-75 times a day for 90 days. atorvastatin Take 1 tablet 90 tablet 0 02/11/20 Discontinued (LIPITOR) 80 MG (80 mg total) by 9 19 tablet mouth nightly. insulin GLARGINE Inject 30 Units [...] mg tablet (20 mg total) by 9 19 mouth 2 (two) times a day. PARoxetine [...] total) 9 19 tablet by mouth daily. minocycline Take 1 capsule 60 capsule 0 02/11/20 Discontinued (MINOCIN,DYNACIN) (100 mg total) 9 19 100 MG capsule by mouth 2 (two) times a day for 30 days. insulin GLARGINE 0 01/23/20 Discontinued (LANTUS SOLOSTAR) 19 100 unit/mL injection (pen) potassium chloride potassium chloride ER 10 mEq tablet,extended release(part/ cryst) 0 01/14/20 Discontinued (K-DUR,KLOR-CON) 10 Take 1 tablet by mouth every day 19 MEQ CR tablet tolterodine LA 0 01/14/20 Discontinued (DETROL LA) 4 MG 24 8 19 hr capsule traMADol ER tramadol ER 100 mg tablet,extended release 24 hr 0 02/11/20 Discontinued (ULTRAM-ER) 100 mg Take 1 tablet by mouth twice daily. 19 24 hr tablet ciprofloxacin HCl Take 1 tablet 14 tablet [...] spectrum 7 days. beta-lactamase) producing bacteria infection insulin GLARGINE Inject 20 Units 15 mL 5 02/11/20 Discontinued (LANTUS SOLOSTAR) under the skin 9 19 100 unit/mL nightly. injection (pen) minocycline Take 1 capsule 60 capsule 0 03/12/20 Discontinued (MINOCIN,DYNACIN) (100 mg total) 9 19 100 MG capsule by mouth 2 (two) times a day for 30 days. traMADol ER tramadol ER 100 mg tablet,extended release 24 hr 30 tablet 0 02/11/20 Discontinued (ULTRAM-ER) 100 mg Take 1 tablet by mouth twice daily. 9 19 24 hr tablet traMADol ER tramadol ER 100 mg tablet,extended release 24 hr 90 tablet 0 02/11/20 Discontinued (ULTRAM-ER) 100 mg Take 1 tablet by mouth twice daily. 9 19 24 hr tablet traMADol ER tramadol ER 100 mg tablet,extended release 24 hr 180 tablet 0 03/12/20 Discontinued (ULTRAM-ER) 100 mg Take 1 tablet by mouth twice daily. 9 19 24 hr tablet pregabalin (LYRICA) Take 1 capsule 270 capsule 2 02/19/20 Discontinued 150 MG capsule (150 mg total) 9 19 by mouth 3 (three) times a day for 90 days. pregabalin (LYRICA) Take 1 capsule 270 capsule 2 02/25/20 Discontinued 150 MG capsule (150 mg total) 9 19 by mouth 3 (three) times a day for 90 days. traMADol ER tramadol ER 100 mg tablet,extended release 24 hr 180 tablet 0 03/12/20 Discontinued (ULTRAM-ER) 100 mg Take 1 tablet by mouth twice daily. 9 19 24 hr tablet traMADol ER tramadol ER 100 mg tablet,extended release 24 hr 180 tablet 0 03/12/20 Discontinued (ULTRAM-ER) 100 mg Take 1 tablet by mouth twice daily. 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 History [...] Encounters Date Type Specialty Care Team Description 03/13/2019 Telephone Family Dora Ferguson LVN 03/12/2019 Orders Only Family Medicine Lucas Stafford, DO 03/12/2019 Orders Only Family Medicine Lucas Stafford, DO 03/12/2019 Refill Family Medicine Lucas Stafford, DO 03/03/2019 Office Visit Infectious Diseases Susy Hannah MD Rash ( Primary Dx); E-coli UTI 02/28/2019 Orders Only Infectious Diseases Elena Taylor MA 02/24/2019 Refill Internal Medicine Rivera R Osbaldo, DO 02/18/2019 Orders Only Family Medicine Rivera R Osbaldo, DO 02/18/2019 Orders Only Family Medicine Rivera R Osbaldo, DO 02/18/2019 Telephone [facility] Dora Ferguson LVN 02/17/2019 Refill Internal Medicine Lingamfelter, R Osbaldo, DO 02/11/2019 Orders Only Family Medicine Lingamfelter, R Osbaldo, DO 02/10/2019 Refill Family Medicine Pop Navarro Type 2 diabetes MD Ross mellitus with other specified complication, with long-term current use of insulin (HCC) 02/10/2019 Orders Only Family Medicine Lingamfelter, R Osbaldo, DO 02/10/2019 Refill Family Medicine Lingamfelter, R Osbaldo, DO 01/29/2019 Orders Only Family Medicine Lingamfelter, R Osbaldo, DO 01/27/2019 Refill Internal Medicine Lingamfelter, R Osbaldo, DO 01/27/2019 Orders Only Family Medicine Lingamfelter, R Osbaldo, DO 01/27/2019 Telephone Family Medicine Jeannie Ken MA 01/26/2019 Refill Family Medicine Lingamfelter, R Osbaldo, DO 01/24/2019 Telephone Family Medicine Jeannie Ken MA 01/22/2019 Orders Only Family Medicine Lingamfelter, R Osbaldo, DO 01/16/2019 Orders Only Family Medicine Pop Navarro ESBL (extended MD Ross spectrum beta-lactamase) producing bacteria infection (Primary Dx) 01/16/2019 Orders Only [facility] Medicine Pop Navarro E-coli UTI (Primary MD Ross Dx) 01/13/2019 Office Visit Family Medicine Rivera, R Acute cystitis with hematuria (Primary Dx); Osbaldo, DO Type 2 diabetes mellitus with other specified complication, with long-term current use of insulin (HCC); Pop Navarro Rash; MD Ross Psoriasis 01/10/2019 Telephone Family Medicine 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, 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 01/07/2019 Orders Only Family Medicine Lingamfelter, R Osbaldo, DO 01/03/2019 Refill Family Medicine [...] with neurologic complication (HCC) (Primary Dx); DO Osbaldo Pressure injury of contiguous region involving back, [...] Medicine Lingamfelter, R 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 Last Filed Vital Signs Vital Sign Reading Time Taken Blood Pressure 142/83 03/03/2019 11:10 AM CDT Pulse 69 03/03/2019 11:10 AM CDT Temperature 36.3 C (97.3 F) 03/03/2019 11:10 AM CDT Respiratory Rate 20 01/13/2019 12:03 PM CDT Oxygen Saturation 94% 03/03/2019 11:10 AM CDT Inhaled Oxygen Concentration - - Weight 94.3 kg (208 lb) 03/03/2019 11:10 AM CDT Height 167.6 cm (5' 6") 01/13/2019 12:03 PM CDT Body Mass Index 33.57 03/03/2019 11:10 AM CDT Plan of Treatment Health Maintenance Due Date Last Done Comments DIABETIC RETINAL EYE EXAM 1950 DIABETIC FOOT EXAM 1959 COLON CANCER SCREENING 1999 SHINGLES VACCINES (#1) 1999 65+ PNEUMOCOCCAL VACCINE (2 of 2 - 07/29/2018 07/29/2013 PPSV23) BREAST CANCER SCREENING 12/06/2018 12/06/2016, 09/11/2016, 08/07/2016, Additional history exists URINE MICROALBUMIN 05/21/2019 05/21/2018 INFLUENZA VACCINE 05/29/2019 11/14/2018, 08/07/2016, 08/18/2015, Additional history exists PNEUMOCOCCAL POLYSACCHARIDE VACCINE Completed 07/29/2013 AGE 65 AND OVER Implants Implanted Type Area Electric Pile Driver Operator Device Shelf Model / Identifier Expiration Serial / Lot Date Lens Iol Asprc Asymet Bicnvx Ant +17.5d 0deg 6x13mm - [id number] - [id number] Intraocular Right: JED 02/25/2021 [id number] 175 / Implanted: Qty: 1 on 03/14/2017 by Ilir Lopez, [employer] [id number] / INC [id number] Lens Iol Asprc Asymet Bicnvx Ant +17.0d 0deg 6x13mm - [id number] - [id number] Intraocular Left: JED 02/25/2021 [id number] 170 / Implanted: Qty: 1 on 06/06/2017 by Ilir Lopez DO [employer] [id number] / INC [id number] Procedures Procedure Name Priority Date/Time Associated Diagnosis [...] for this DIFFERENTIAL PM CDT disease of tangirnaq procedure are in artery of tangirnaq the results heart with stable section. angina pectoris HEMOGLOBIN A1C Routine 05/21/2018 12:15 Diabetic neuropathy Results for this PM CDT with neurologic procedure are in complication the results section. MICROALBUMIN / Routine 05/21/2018 12:15 Diabetic neuropathy Results for this CREATININE URINE RATIO PM CDT with neurologic procedure are in complication the results section. 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 Specimen Urine Resulting Agency Comment Performing Organization Information: Site ID: [id number] Name: [facility] Address: [address] [place] [phone] Director: Hemalatha Davies Performing Organization Address City/State/Zipcode Phone Number [facility] [place] [phone] POC urinalysis dipstick (01/13/2019 12:27 PM CDT) [...] WBC, UA NONE SEEN < OR=5 /HPF [facility] [place] RBC, UA NONE SEEN < OR=2 /HPF [facility] [place] Squamous epithelial cells, UA NONE SEEN < OR=5 /HPF [facility] [place] Bacteria, UA NONE SEEN NONE SEEN /HPF [facility] [place] Hyaline casts, UA NONE SEEN NONE SEEN /LPF [facility] [place] Specimen Urine Narrative Performed At FASTING:NO [facility] FASTING: NO Resulting Agency Comment Performing Organization Information: Site ID: [id number] Name: [facility] Address: [address] [place] [phone] Director: Hemalatha Davies Performing Organization Address [facility] Phone Number [facility] [address] [address] Microalbumin / creatinine urine ratio (05/21/2018 12:15 PM CDT) Creatinine, urine, 31 20 - 320 mg/dL [facility] Microalbumin, urine <0.2 See Note: mg/dL [facility] Comment: [place] Reference Range: Reference Range Not established Results verified by repeat analysis on dilution. Microalbumin/creatini NOTE <30 mcg/mg creat [facility] ne ratio Comment: [place] The microalbumin value is less than 0.2 mg/dL therefore we are unable to calculate excretion and/or creatinine ratio. The ADA defines abnormalities in albumin excretion as follows: Category Result (mcg/mg creatinine) Normal<30 Microalbuminuria 30-299 Clinical albuminuria > TG=210 The ADA recommends that at least two of three specimens collected within a 3-6 month period be abnormal before considering a patient to be within a diagnostic category. Specimen Urine Narrative Performed At FASTING:NO [facility] FASTING: NO Resulting Agency Comment Performing Organization Information: Site ID: [id number] Name: [facility] Address: [address] [place] [phone] Director: Hemalatha Davies Performing Organization Address [facility] Phone Number [facility] [address] [address] CBC with platelet and differential (05/21/2018 12:15 PM CDT) WBC 6.3 3.8 - 10.8 Thousand/uL [employer] [place] RBC 5.13 (H) 3.80 - 5.10 Million/uL [employer] [facility] [place] HGB 14.7 11.7 - 15.5 g/dL [employer] [place] HCT 43.7 35.0 - 45.0 % [employer] [place] MCV 85.2 80.0 - 100.0 fL [employer] [place] MCH 28.7 27.0 - 33.0 pg [employer] [place] MCHC 33.6 32.0 - 36.0 g/dL [facility] [place] RDW 13.4 11.0 - 15.0 % [employer] [place] Platelet count 189 140 - 400 Thousand/uL [employer] [facility] [place] MPV 10.4 7.5 - 12.5 fL [facility] [place] Neutrophils, absolute 2,344 1,500 - 7,800 cells/uL [employer] [place] Lymphocytes, absolute 2,948 850 - 3,900 cells/uL [facility] [place] Monocytes, absolute 662 200 - 950 cells/uL [facility] [place] Eosinophils, absolute 277 15 - 500 cells/uL [facility] [place] Basophils, absolute 69 0 - 200 cells/uL [facility] [place] Neutrophils 37.2 % [facility] [place] Lymphocytes 46.8 % [facility] [place] Monocytes 10.5 % [facility] [place] Eosinophils 4.4 % [employer] [place] Basophils + RC 1.1 % [employer] [facility] [place] Specimen Blood Narrative Performed At FASTING:NO [facility] FASTING: NO Resulting Agency Comment Performing Organization Information: Site ID: [id number] Name: [facility] Address: [address] [place] [phone] Director: Hemalatha Davies Performing Organization Address City/State/Zipcode Phone Number [facility] [place] [phone] Hemoglobin A1c (05/21/2018 12:15 PM CDT) Hemoglobin A1C 10.9 (H) <5.7 % of total [facility] Comment: Hgb [place] For someone without known diabetes, a hemoglobin [...] Agency Comment Performing Organization Information: Site ID: [id number] Name: [facility] Address: [address] [place] [phone] Director: Hemalatha Davies Performing Organization Address [facility] Phone Number [facility] [address] Lipid panel (05/21/2018 12:15 PM CDT) Cholesterol, total 121 <200 mg/dL [facility] HDL cholesterol 29 (L) >50 mg/dL [facility] Triglycerides 279 (H) <150 mg/dL [facility] LDL cholesterol 59 mg/dL (calc) [facility] calculated Comment: [place] Reference range: <100 Desirable range <100 mg/dL for primary prevention; <70 mg/dL for patients with CHD or diabetic patients with > or=2 CHD risk factors. LDL-C is now calculated using the Oumar-Melonie calculation, which is a validated novel method providing better accuracy than the Friedewald equation in the estimation of LDL-C. Oumar SS et al. GURINDER. 2013;310(19): 5439-7105 (http://education.[employer]ring [employer]/faq/OEH443) Cholesterol/HDL ratio 4.2 <5.0 (calc) [facility] Non-HDL cholesterol 92 <130 mg/dL [facility] Comment: (calc) [place] For patients with diabetes plus 1 major ASCVD risk factor, treating to a non-HDL-C goal of <100 mg/dL (LDL-C of <70 mg/dL) is considered a therapeutic option. Specimen Blood Narrative Performed At FASTING:NO [facility] FASTING: NO Resulting Agency Comment Performing Organization Information: Site ID: [id number] Name: [facility] Address: [address] [place] [phone] Director: Hemalatha Davies Performing Organization Address [facility] Phone Number CINDY [facility] [address] [address] Comprehensive metabolic panel (05/21/2018 12:15 PM CDT) Glucose 215 (H) 65 - 139 mg/dL [employer] [facility] Comment: [place] Non-fasting reference interval BUN, whole blood 14 7 - 25 mg/dL [facility] [place] Creatinine 0.79 0.50 - 0.99 [employer] Comment: mg/dL [place] For patients >49 years of age, the reference limit for Creatinine is approximately 13% higher for people identified as -Icelandic. EGFR Non-Afr. [place]ic 77 > OR=60 [facility] mL/min/1.73m2 [place] EGFR 89 > OR=60 [facility] mL/min/1.73m2 [place] BUN/creatinine ratio NOT APPLICABLE 6 - 22 (calc) [facility] [place] Sodium 140 135 - 146 mmol/L [facility] [place] Potassium 3.7 3.5 - 5.3 mmol/L [facility] [place] Chloride 103 98 - 110 mmol/L [facility] [place] CO2 26 20 - 31 mmol/L [facility] [place] Calcium 9.2 8.6 - 10.4 mg/dL [facility] [place] Protein 6.3 6.1 - 8.1 g/dL [facility] [place] Albumin, S 3.6 3.6 - 5.1 g/dL [facility] [place] Globulin, total 2.7 1.9 - 3.7 g/dL [facility] (calc) [place] Albumin/globulin ratio 1.3 1.0 - 2.5 (calc) [facility] [place] Total bilirubin 0.5 0.2 - 1.2 mg/dL [facility] [place] Alkaline phosphatase 58 33 - 130 U/L [facility] [place] AST 26 10 - 35 U/L [facility] [place] ALT 21 6 - 29 U/L [facility] [place] Specimen Blood Narrative Performed At FASTING:NO [facility] FASTING: NO Resulting Agency Comment Performing Organization Information: Site ID: [id number] [facility]: [facility] Address: [address] [place] [phone] Director: Hemalatha Davies Performing Organization Address City/State/Zipcode Phone Number [facility] [place] [address] [place] [address] after 03/13/2018 Insurance Payer Benefit Plan / Group Subscriber ID Type Phone Address [facility] xxxxxxxxxxx Advance Directives Patient has advance care planning documents on file. For more information, please contact:[email or web address] [place] [address]
[2019-03-14] MEDS ORDERED: IPRATROPIUM BROM 0.5MG/2.5ML ONE (15:51)
[2019-03-14] MEDS ORDERED: ALBUTEROL 2.5 MG/3 ML NEB SOL ONE (15:51)
[2019-03-14] MEDS ORDERED: predniSONE 20 MG TAB ONE (15:52)
--- NOTE | 2019-03-14 15:55 | RAD REPORT ---
EXAM DESCRIPTION: RAD - Chest Pa And Lat (2 Views) - 03/14/2019 3:46 pm CLINICAL HISTORY: Cough and congestion, COPD, low-grade fever and fatigue COMPARISON: December 15 TECHNIQUE: PA and lateral views of the chest were obtained. FINDINGS: The lungs are clear of a peripheral mass, consolidation or significant failure finding. In terstitial markings are prominent but not clearly different. Heart size is normal and central vascu lature is within normal limits. No pleural effusion or pneumothorax seen. No acute bony finding not ed. No aortic abnormality. IMPRESSION: No acute cardiopulmonary process. No significant change from comparison.
[2019-03-14 16:43] LABS: Absolute Lymphocytes (CBC) 2.4 K/uL (0.7-4.9); Absolute Monocytes 0.6 K/uL (0.1-1.3); Absolute Neutrophil 3.5 K/uL (1.8-8.0); Eosinophils % 3.1 % (0-4.4); Hematocrit 47.1 % (36.0-45.0); Lymphocytes % 35.4 % (15.3-44.8); MPV 8.9 fL (7.6-11.3); Monocytes % 9.1 % (3.3-12.3); RBC Red Blood Cell Count 5.47 M/uL (3.86-4.86)
[2019-03-14 17:11] LABS: ALT/SGPT 34 U/L (12-78); AST/SGOT 32 U/L (15-37); Albumin 3.3 g/dL (3.4-5.0); Alkaline Phosphatase 111 U/L (45-117); BUN Blood Urea Nitrogen 13 mg/dL (7-18); Bicarbonate 32 mmol/L (21-32); Bilirubin Direct 0.2 mg/dL (0-0.2); Bilirubin Total 0.5 mg/dL (0.2-1.0); Glucose Level 366 mg/dL (74-106); Protein, Total 7.2 g/dL (6.4-8.2); Sodium Level 141 mmol/L (136-145)
[2019-03-14 17:12] LABS: NT PRO-BNP 224 pg/mL (<125); Troponin (Emerg Dept Use Only) < 0.02 ng/mL (0.0-0.045)
[2019-03-14 18:10] LABS: Protime INR 1.14
--- NOTE | 2019-03-14 18:19 | EDPHYS ---
Physician Documentation [facility] Name: Marlena Dia Age: 68 yrs Sex: Female : 1950 Arrival Date: 03/14/2019 Time: 13:51 Bed 15 Private MD: ED Physician Rafiq Vickers HPI: 03/15 10:15 This 68 yrs old Female presents to ER via Ambulatory with complaints of gs Cough, Congestion. 10:15 The patient or guardian reports cough, difficulty breathing, flu symptoms. Onset: The gs symptoms/episode began/occurred 1 week(s) ago, and became persistent. Severity of symptoms: At their worst the symptoms were severe, in the emergency department the symptoms are unchanged. Modifying factors: the symptoms are aggravated by cold weather, smoke. Associated signs and symptoms: Pertinent negatives: fever, sore throat. The patient has experienced similar episodes in the past, multiple times, chronically. The patient has not recently seen a physician. Historical: - Allergies: 03/14 14:04 Codeine; ss 14:04 Demerol; ss 14:04 diazepam; ss 14:04 Iodine; ss 14:04 novocaine; ss 14:04 PENICILLINS; ss 14:04 procaine HCl; ss 14:04 Propoxyphene HCl; ss 14:04 propoxyphene napsylate; ss 14:04 Sulfa (Sulfonamide Antibiotics); ss 14:04 Valium; ss 14:04 Vicodin; ss - PMHx: 14:04 CHF; Diabetes - IDDM; High Cholesterol; Myocardial infarction; PERIPHERAL NEUROPATHY; ss - PSHx: 14:04 Heart stents; ss - Immunization history:: Adult Immunizations up to date. - Social history:: Smoking status: Patient uses tobacco products, denies chronic smoking, but will smoke occasionally. - Ebola Screening: : Patient denies exposure to infectious person Patient denies travel to an Ebola-affected area in the 21 days before illness onset. ROS: 03/15 10:15 All other systems are negative. gs Exam: 10:15 Head/Face: Normocephalic, atraumatic. Eyes: Pupils equal round and reactive to light, gs extra-ocular motions intact. Lids and lashes normal. Conjunctiva and sclera are non-icteric and not injected. Cornea within normal limits. Periorbital areas with no swelling, redness, or edema. ENT: Nares patent. No nasal discharge, no septal abnormalities noted. Tympanic membranes are normal and external auditory canals are clear. Oropharynx with no redness, swelling, or masses, exudates, or evidence of obstruction, uvula midline. Mucous membranes moist. Neck: Trachea midline, no thyromegaly or masses palpated, and no cervical lymphadenopathy. Supple, full range of motion without nuchal rigidity, or vertebral point tenderness. No Meningismus. Chest/axilla: Normal chest wall appearance and motion. Nontender with no deformity. No lesions are appreciated. Cardiovascular: Regular rate and rhythm with a normal S1 and S2. No gallops, murmurs, or rubs. Normal PMI, no JVD. No pulse deficits. Abdomen/GI: Soft, non-tender, with normal bowel sounds. No distension or tympany. No guarding or rebound. No evidence of tenderness throughout. Back: No spinal tenderness. No costovertebral tenderness. Full range of motion. Skin: Warm, dry with normal turgor. Normal color with no rashes, no lesions, and no evidence of cellulitis. MS/ Extremity: Pulses equal, no cyanosis. Neurovascular intact. Full, normal range of motion. Neuro: Awake and alert, GCS 15, oriented to person, place, time, and situation. Cranial nerves II-XII grossly intact. Motor strength 5/5 in all extremities. Sensory grossly intact. Cerebellar exam normal. Normal gait. 10:15 Constitutional: The patient appears alert, awake. 10:15 ECG was reviewed by the Attending Physician. 10:15 Respiratory: mild respiratory distress is noted, Respirations: intercostal retractions, that is mild, tachypnea, that is mild, Breath sounds: rhonchi, wheezing: Vital Signs: 03/14 14:04 BP 106 / 59; Pulse 79; Resp 16; Temp 98.8(O); Pulse Ox 94% on R/A; Weight 94.8 kg; ss Height 5 ft. 6 in. (167.64 cm); Pain 08/07; 15:02 BP 142 / 69; Pulse 77; Resp 18; Pulse Ox 95% on R/A; aj1 16:37 BP 130 / 73; Pulse 74; Resp 18; Pulse Ox 94% on R/A; aj1 17:30 BP 127 / 68; Pulse 80; Resp 18; Pulse Ox 96% on R/A; aj1 18:30 BP 133 / 68; Pulse 76; Resp 20; Pulse Ox 95% on R/A; aj1 19:30 BP 137 / 77; Pulse 72; Resp 20; Pulse Ox 95% on R/A; aj1 14:04 Body Mass Index 33.73 (94.80 kg, 167.64 cm) ss MDM: 15:25 Patient medically screened. 03/15 10:15 Differential Diagnosis: Bronchitis Upper Respiratory Infection Viral Syndrome gs Pneumonia. Data reviewed: vital signs, nurses notes, lab test result(s), EKG, radiologic studies. Counseling: I had a detailed discussion with the patient and/or guardian regarding: the historical points, exam findings, and any diagnostic results supporting the discharge/admit diagnosis, the need for outpatient follow up. Response to treatment: the patient's symptoms have markedly improved after treatment, the patient's condition has returned to base line, and as a result, I will discharge patient. 03/14 15:27 Order name: Basic Metabolic Panel 03/14 15:27 Order name: CBC with Diff; Complete Time: 17:51 03/14 15:27 Order name: LFT's; Complete Time: 17:51 03/14 15:27 Order name: Magnesium; Complete Time: 17:51 03/14 15:27 Order name: NT PRO-BNP; Complete Time: 17:51 03/14 15:27 Order name: PT-INR 03/14 15:27 Order name: Troponin (emerg Dept Use Only); Complete Time: 17:51 03/14 15:27 Order name: EKG; Complete Time: 15:28 03/14 15:27 Order name: XRAY Chest Pa And Lat (2 Views); Complete Time: 16:02 03/14 15:27 Order name: Blood Culture* 03/14 15:27 Order name: Basic Metabolic Panel; Complete Time: 17:51 EDMS 03/14 15:27 Order name: Cardiac monitoring; Complete Time: 16:35 03/14 15:27 Order name: EKG - Nurse/Tech; Complete Time: 16:35 03/14 15:27 Order name: IV Saline Lock; Complete Time: 16:22 03/14 15:27 Order name: Labs collected and sent; Complete Time: 16:23 gs 03/14 15:27 Order name: O2 Per Protocol; Complete Time: 16:36 gs 03/14 15:27 Order name: O2 Sat Monitoring; Complete Time: 16:36 gs EC:15 Rate is 74 beats/min. Rhythm is regular. [place] interval is normal. QRS interval is gs prolonged. QT interval is prolonged. T waves are Flattened. Clinical impression: NSR w/ Non-specific ST/T Changes. Interpreted by me. Administered Medications: 03/14 15:50 Drug: AtroVENT Aerosol 0.5 mg Route: Inhalation; 16:30 Follow up: Response: No adverse reaction aj1 15:51 Drug: predniSONE 40 mg Route: PO; ss 16:30 Follow up: Response: No adverse reaction aj1 15:51 Drug: Albuterol 2.5 mg Route: Inhalation; 16:30 Follow up: Response: No adverse reaction aj1 Disposition: 03/14/19 18:18 Discharged to Home. Impression: Chronic obstructive pulmonary disease with (acute) exacerbation. - Condition is Stable. - Discharge Instructions: Chronic Obstructive Pulmonary Disease. - Prescriptions for Tessalon Perles 100 mg Oral Capsule - take 1 capsule by ORAL route every 8 hours As needed; 15 capsule. Albuterol Sulfate 2.5 mg /3 mL (0.083 %) Inhalation Solution for Nebulization - inhale 1 unit by NEBULIZATION route every 8 hours As needed; 1 box. Prednisone 20 mg Oral Tablet - take 2 tablet by ORAL route once daily for 5 days; 10 tablet. - Medication Reconciliation Form, Thank You Letter, Antibiotic Education, Prescription Opioid Use form. - Follow up: Private Physician; When: 2 - 3 days; Reason: Re-evaluation by your physician. Signatures: Dispatcher [employer] [facility] Thuy Aguilar RN RN ss Bryson, James, RN RN jb4 Rafiq Vickers MD MD gs Johnson, Angela RN aj1 Corrections: (The following items were deleted from the chart) 19:40 18:18 03/14/2019 18:18 Discharged to Home. Impression: Chronic obstructive pulmonary jb4 disease with (acute) exacerbation. Condition is Stable. Forms are Medication Reconciliation Form, Thank You Letter, Antibiotic Education, Prescription Opioid Use. Follow up: Private Physician; When: 2 - 3 days; Reason: Re-evaluation by your physician. gs
--- NOTE | 2019-03-14 18:19 | ER ---
Nurse's Notes [facility] Name: Marlena Dia Age: 68 yrs Sex: Female : 1950 Arrival Date: 03/14/2019 Time: 13:51 Bed 15 Private MD: Diagnosis: Chronic obstructive pulmonary disease with (acute) exacerbation Presentation: 03/14 14:03 Presenting complaint: Patient states: cough, chest congestion, low grade fever and ss fatigue x 2 days. Transition of care: patient was not received from another setting of care. Resp Distress? No respiratory distress is noted at this time. Onset of symptoms was March 12, 2019. Risk Assessment: Do you want to hurt yourself or someone else? Patient reports no desire to harm self or others. Initial Sepsis Screen: Does the patient meet any 2 criteria? No. Patient's initial sepsis screen is negative. Does the patient have a suspected source of infection? No. Patient's initial sepsis screen is negative. Care prior to arrival: None. 14:03 Method Of Arrival: Ambulatory ss 14:03 Acuity: RAVI 3 ss Historical: - Allergies: 14:04 Codeine; ss 14:04 Demerol; ss 14:04 diazepam; ss 14:04 Iodine; ss 14:04 novocaine; ss 14:04 PENICILLINS; ss 14:04 procaine HCl; ss 14:04 Propoxyphene HCl; ss 14:04 propoxyphene napsylate; ss 14:04 Sulfa (Sulfonamide Antibiotics); ss 14:04 Valium; ss 14:04 Vicodin; ss - PMHx: 14:04 CHF; Diabetes - IDDM; High Cholesterol; Myocardial infarction; PERIPHERAL NEUROPATHY; ss - PSHx: 14:04 Heart stents; ss - Immunization history:: Adult Immunizations up to date. - Social history:: Smoking status: Patient uses tobacco products, denies chronic smoking, but will smoke occasionally. - Ebola Screening: : Patient denies exposure to infectious person Patient denies travel to an Ebola-affected area in the 21 days before illness onset. Screenin:02 Abuse screen: Denies threats or abuse. Denies injuries from another. Nutritional aj1 screening: No deficits noted. Tuberculosis screening: No symptoms or risk factors identified. 19:30 Fall Risk None identified. aj1 Assessment: 15:02 General: Appears in no apparent distress. uncomfortable, Behavior is calm, cooperative, aj1 appropriate for age. Pain: Complains of pain in right mid back. Neuro: Level of Consciousness is awake, alert, obeys commands, Oriented to person, place, time, situation. Cardiovascular: Denies chest pain, Heart tones S1 S2 present Patient's skin is warm and dry. Respiratory: Reports shortness of breath at rest cough that is productive, Airway is patent Respiratory effort is even, unlabored, Respiratory pattern is regular, symmetrical, Breath sounds are diminished in right posterior middle lobe and right posterior lower lobe. GI: No signs and/or symptoms were reported involving the gastrointestinal system. : No signs and/or symptoms were reported regarding the genitourinary system. EENT: No signs and/or symptoms were reported regarding the EENT system. Derm: No signs and/or symptoms reported regarding the dermatologic system. Skin is pink, warm \T\ dry. normal. Musculoskeletal: No signs and/or symptoms reported regarding the musculoskeletal system. Circulation, motion, and sensation intact. 16:05 Reassessment: Patient appears in no apparent distress at this time. No changes from aj1 previously documented assessment. Patient and/or family updated on plan of care and expected duration. Pain level reassessed. Patient is alert, oriented x 3, equal unlabored respirations, skin warm/dry/pink. 17:05 Reassessment: Patient and/or family updated on plan of care and expected duration. Pain aj1 level reassessed. General: Appears in no apparent distress. comfortable, Behavior is calm, cooperative, appropriate for age. Neuro: Level of Consciousness is awake, alert, obeys commands, Oriented to person, place, time, situation, Appropriate for age. Cardiovascular: Patient's skin is warm and dry. Respiratory: Airway is patent Respiratory effort is even, unlabored, Respiratory pattern is regular, symmetrical. Derm: No signs and/or symptoms reported regarding the dermatologic system. Skin is pink, warm \T\ dry. normal. Musculoskeletal: No signs and/or symptoms reported regarding the musculoskeletal system. Circulation, motion, and sensation intact. 18:05 Reassessment: Patient appears in no apparent distress at this time. No changes from aj1 previously documented assessment. Patient and/or family updated on plan of care and expected duration. Pain level reassessed. Patient is alert, oriented x 3, equal unlabored respirations, skin warm/dry/pink. 19:05 Reassessment: Patient appears in no apparent distress at this time. No changes from aj1 previously documented assessment. Patient and/or family updated on plan of care and expected duration. Pain level reassessed. Patient is alert, oriented x 3, equal unlabored respirations, skin warm/dry/pink. Vital Signs: 14:04 BP 106 / 59; Pulse 79; Resp 16; Temp 98.8(O); Pulse Ox 94% on R/A; Weight 94.8 kg; ss Height 5 ft. 6 in. (167.64 cm); Pain 10/10; 15:02 BP 142 / 69; Pulse 77; Resp 18; Pulse Ox 95% on R/A; aj1 16:37 BP 130 / 73; Pulse 74; Resp 18; Pulse Ox 94% on R/A; aj1 17:30 BP 127 / 68; Pulse 80; Resp 18; Pulse Ox 96% on R/A; aj1 18:30 BP 133 / 68; Pulse 76; Resp 20; Pulse Ox 95% on R/A; aj1 19:30 BP 137 / 77; Pulse 72; Resp 20; Pulse Ox 95% on R/A; aj1 14:04 Body Mass Index 33.73 (94.80 kg, 167.64 cm) ED Course: 13:51 Patient arrived in ED. as 14:04 Triage completed. ss 14:04 Arm band placed on left wrist. ss 14:53 Rafiq Vickers MD is Attending Physician. gs 14:58 Pamela Cuba, RN is Primary Nurse. aj1 15:02 Patient has correct armband on for positive identification. Bed in low position. Call aj1 light in reach. Side rails up X 1. 15:02 No provider procedures requiring assistance completed. aj1 15:40 X-ray completed. Patient tolerated procedure well. bb2 15:41 XRAY Chest Pa And Lat (2 Views) In Process Unspecified. EDMS 15:56 EKG done, by pharmacy intake technician. reviewed by Rafiq Vickers MD. sm3 16:23 Initial lab(s) drawn, by il, sent to lab. Inserted saline lock: 20 gauge in left em1 forearm, using aseptic technique. Blood collected. 19:30 IV discontinued, intact, bleeding controlled, No redness/swelling at site. Pressure aj1 dressing applied. Administered Medications: 15:50 Drug: AtroVENT Aerosol 0.5 mg Route: Inhalation; ss 16:30 Follow up: Response: No adverse reaction aj1 15:51 Drug: predniSONE 40 mg Route: PO; ss 16:30 Follow up: Response: No adverse reaction aj1 15:51 Drug: Albuterol 2.5 mg Route: Inhalation; ss 16:30 Follow up: Response: No adverse reaction aj1 Outcome: 18:18 Discharge ordered by . 19:30 Discharged to home ambulatory. aj1 19:30 Condition: good 19:30 Discharge instructions given to patient, Instructed on discharge instructions, follow up and referral plans. medication usage, Demonstrated understanding of instructions, follow-up care, medications. 19:40 Patient left the ED. jb4 Signatures: Dispatcher [employer] EDMS Pamela Cuba RN RN aj1 Juan Carlos, Nataly Rangel, Xu em1 Thuy Aguilar RN RN ss Bryson, James, RN RN jb4 [facility]iq [facility]ickers MD [facility] Марина Melendez 3 Corrections: (The following items were deleted from the chart) 22:48 15:02 Derm: No signs and/or symptoms reported regarding the dermatologic system. Skin aj1 is pink, warm \T\ dry. black, aj1 22:48 15:02 Musculoskeletal: No signs and/or symptoms reported regarding the musculoskeletal aj1 system. Circulation, motion, and sensation intact. aj1
[2019-03-14 19:47] VITALS: TEMP 98.8
[2019-03-14 19:50] VITALS: BP 130/73; O2SAT 94
--- NOTE | 2019-03-15 14:27 | EKG ---
Test Date: 2019-03-14 Test Time: 15:56:15 Manager Pe: ANDRAE MEASUREMENT RESULTS: Intervals: Rate: 74 NV: 152 QRSD: 102 QT: 452 QTc: 501 [place]: P: 59 NV: 152 QRS: 20 T: 65 INTERPRETIVE STATEMENTS: Normal sinus rhythm Cannot rule out Anterior infarct, age undetermined Abnormal ECG Compared to ECG 12/15/2017 12:51:48 Prolonged QT interval no longer present Myocardial infarct finding still present Electronically Signed On 03-15-19 14:27:18 CDT by Landon Lennon
== END 2019-03-14 19:40 | disposition home or self-care (01) ==
LOC: ER 13:49
DX: J44.1 Chronic obstructive pulmonary disease with (acute) exacerbation (principal); Z72.0 Tobacco use; Z88.0 Allergy status to penicillin; Z88.2 Allergy status to sulfonamides; Z88.5 Allergy status to narcotic agent; Z88.6 Allergy status to analgesic agent; Z88.8 Allergy status to other drugs, medicaments and biological substances; Z95.818 Presence of other cardiac implants and grafts
CPT/HCPCS: 36415; 71046; 80048; 80076; 83735; 83880; 84484; 85025; 85610; 87040; 93005; 99284; J7512

== ENCOUNTER 2021-11-09 21:08 | Inpatient (IN) | payer OTHER ==
--- OUTSIDE RECORDS SUMMARY | 2021-11-09 21:12 | XMS REPORT | Continuity of Care Document ---
:1950 Author Organization [facility] t Address [address] [place] [address] Care Team Providers Name Role Phone KIA Attending Clinician Unavailable MD CHRIS ADAM Attending Clinician Unavailable AGATHA Attending Clinician Unavailable RUFINO Attending Clinician Unavailable KIA Admitting Clinician Unavailable MD CHRIS ADAM Admitting Clinician Unavailable RUFINO Admitting Clinician Unavailable Problems This patient has no known problems. Allergies, Adverse Reactions, Alerts This patient has no known allergies or adverse reactions. Medications This patient has no known medications. Procedures This patient has no known procedures. Encounters Start End Encounter Admission Attending Care Care Encounter Source Date/Time Date/Time Type Type Clinicians Facility Department ID 2021-08-26 2021-09-07 Inpatient [facility] [id number] [place] 00:00:00 00:00:00 THERESAA 810 Method i 2021-06-01 2021-06-01 Outpatient [facility] [id number] [place] 00:00:00 00:00:00 R, R. 162 Method i 2021-05-20 2021-05-24 [facility] [id number] [place] 00:00:00 00:00:00 R R. 526 Method i 2021-03-11 2021-03-11 [facility] [id number] [place] 00:00:00 00:00:00 R R. 816 Method i 2021-02-02 2021-02-02 [facility] [id number] [place] 00:00:00 00:00:00 R, R. 246 Method i 2020-12-08 2020-12-08 Outpatient [place] [facility] [id number] [place] 00:00:00 00:00:00 R, R. 363 Method i 2020-10-27 2020-10-27 Outpatient [place] [facility] [id number] [place] 00:00:00 00:00:00 R, R. 859 Method i 2020-07-15 2020-07-15 Outpatient [place] [facility] [id number] [place] 00:00:00 00:00:00 R, R. 569 Method i 2020-05-03 2020-05-03 Outpatient [place] [facility] [id number] [place] 00:00:00 00:00:00 R, R 390 Method i 2019-12-01 2019-12-06 Inpatient RUFINO, [facility] [id number] [place] 00:00:00 00:00:00 [facility] 016 Method i Results Test Description Test Time Test Comments Results Result Comments Source SARS-CoV-2 (COVID-19) RNA [Presence] in Respiratory sp ecimen by 2021-08-27 01:19:10 RUTH with probe detection Test Item Value Reference Range Interpretation Comme nts SARS-CoV-2 (COVID-19) RNA [Presence] in Respiratory Not detected No t-Detected specimen by RUTH with probe detection (test code = 59354-9) Whether patient is employed in a healthcare setting (test code = 51042-1) Whether the patient has symptoms related to condition of interest (test code = 50904-2) Patient was hospitalized because of this condition (test code = 83936-1) Whether the patient was admitted to intensive care unit (ICU) for condition of interest (test code = 70985-2) Whether patient resides in a congregate care setting (test code = 55589-8)
[2021-11-09 22:19] LABS: Urine Blood 2+ (Negative); Urine Glucose 3+ (Negative); Urine Protein 2+ (Negative); Urine Specific Gravity 1.015 (1.005-1.030); Urine pH 5.5 (5.0-7.0)
[2021-11-09] MEDS ORDERED: NA CHLORIDE 0.9% 2,000 ML ONE (22:33)
[2021-11-09 22:48] LABS: Absolute Lymphocytes (CBC) 1.7 K/uL (0.7-4.9); Lymphocytes % 9.7 % (15.3-44.8); MPV 7.4 fL (7.6-11.3); RBC Red Blood Cell Count 4.83 M/uL (3.86-4.86)
[2021-11-09 22:49] LABS: Protime INR 1.27
[2021-11-09 23:03] LABS: Albumin 2.9 g/dL (3.4-5.0); Bilirubin Direct 0.3 mg/dL (0-0.2); Bilirubin Total 1.1 mg/dL (0.2-1.0); CKMB Creatine Kinase MB 6.2 ng/mL (1.0-3.6); Protein, Total 7.6 g/dL (6.4-8.2); Troponin High Sensitivity 15.2 pg/mL (<58.9)
--- NOTE | 2021-11-09 23:44 | EDPHYS ---
Physician Documentation [facility] Name: Marlena Dia Age: 71 yrs Sex: Female : 1950 Arrival Date: 11/09/2021 Time: 21:28 Bed 5 Private MD: ED Physician Calista Gamble HPI: 11/09 22:06 This 71 yrs old Female presents to ER via EMS with complaints of Altered Mental Status. sp3 22:06 Story per EMS and patient. 71-year-old female with a history of CHF, hyperlipidemia, sp3 diabetes, ACS/WI with multiple stent placements, presents to the ED for altered mental status. Patient was on her scooter on her front porch and neighbors checked up on her and found her to be more somnolent and less responsive than normal. They therefore activated EMS. EMS found patient to be a bit more alert but still confused. Patient denies headache, fever, chest pain, shortness of breath, abdominal pain, nausea, vomiting, diarrhea, or any other symptoms on ROS at this time.. Historical: - Allergies: 21:32 Codeine; bb 21:32 Demerol; bb 21:32 diazepam; bb 21:32 Iodine; bb 21:32 novocaine; bb 21:32 PENICILLINS; bb 21:32 procaine HCl; bb 21:32 Propoxyphene HCl; bb 21:32 propoxyphene napsylate; bb 21:32 Sulfa (Sulfonamide Antibiotics); bb 21:32 Valium; bb 21:32 Vicodin; bb - Immunization history:: Adult Immunizations unknown. - Social history:: Smoking status: unknown. ROS: 22:08 Constitutional: Negative for fever, chills, and weight loss, Eyes: Negative for injury, sp3 pain, redness, and discharge, Cardiovascular: Negative for chest pain, palpitations, and edema, Respiratory: Negative for shortness of breath, cough, wheezing, and pleuritic chest pain, Abdomen/GI: Negative for abdominal pain, nausea, vomiting, diarrhea, and constipation, Skin: Negative for injury, rash, and discoloration, Endocrine: Negative for neck swelling, polydipsia, polyuria, polyphagia, and marked weight changes. 22:08 Neuro: Positive for As per HPI.. Exam: 22:08 Constitutional: This is a well developed, well nourished patient who is awake, alert, sp3 and in no acute distress. Head/Face: Normocephalic, atraumatic. Eyes: Pupils equal round and reactive to light, extra-ocular motions intact. Lids and lashes normal. Conjunctiva and sclera are non-icteric and not injected. Cornea within normal limits. Periorbital areas with no swelling, redness, or edema. Neck: Trachea midline, no thyromegaly or masses palpated, and no cervical lymphadenopathy. Supple, full range of motion without nuchal rigidity, or vertebral point tenderness. No Meningismus. Cardiovascular: Regular rate and rhythm with a normal S1 and S2. No gallops, murmurs, or rubs. Normal PMI, no JVD. No pulse deficits. Respiratory: Lungs have equal breath sounds bilaterally, clear to auscultation and percussion. No rales, rhonchi or wheezes noted. No increased work of breathing, no retractions or nasal flaring. Abdomen/GI: Soft, non-tender, with normal bowel sounds. No distension or tympany. No guarding or rebound. No evidence of tenderness throughout. Skin: Warm, dry with normal turgor. Normal color with no rashes, no lesions, and no evidence of cellulitis. Neuro: Awake and alert, GCS 15, oriented to person, place, time, and situation. Cranial nerves II-XII grossly intact. Motor strength 5/5 in all extremities. Sensory grossly intact. Cerebellar exam normal. Normal gait. Psych: Awake, alert, with orientation to person, place and time. Behavior, mood, and affect are within normal limits. 22:08 Neuro: Patient is slow to answer but has normal neurological exam and is alert and oriented x3.. 23:52 ECG was reviewed by the Attending Physician. Demonstrates sinus tachycardia at 109 bpm sp3 with normal intervals, normal QRS, normal axis, nonspecific diffuse ST/T changes without evidence of ischemia likely due to motion. Vital Signs: 21:35 BP 147 / 78; Pulse 96; Resp 20 S; Temp 98.3(O); Pulse Ox 96% on R/A; Weight 72.57 kg bb (R); Height 5 ft. 7 in. (170.18 cm) (R); Pain 0/10; 22:00 BP 149 / 99; Pulse 102; Resp 20; Pulse Ox 100% on R/A; sm5 23:00 BP 177 / 78; Pulse 123; Resp 24; Pulse Ox 100% on R/A; sm5 11/10 00:20 Temp 105.1(C); tw5 01:00 BP 147 / 39; Pulse 108; Resp 28; Temp 103.8(C); Pulse Ox 96% on R/A; sm5 02:00 BP 130 / 52; Pulse 95; Resp 20; Temp 101.8(C); Pulse Ox 97% on R/A; sm5 02:39 Temp 100.8(C); sm5 11/09 21:35 Body Mass Index 25.06 (72.57 kg, 170.18 cm) bb MDM: 11/09 21:36 Patient medically screened. sp3 22:09 Data reviewed: vital signs, nurses notes. ED course: 71-year-old female with altered sp3 mental status. Will obtain broad work-up including laboratory values, COVID swab, UA, CT scan of the head, chest x-ray. Differential includes UTI, pneumonia, sepsis, COVID-19, CVA, ACS, other infectious process. I am not highly suspicious for meningitis, intracranial hemorrhage, or vascular disruption including dissection or aneurysm. Disposition based on data obtained but likely admission.. 23:41 ED course: All results are back. Data indicates urosepsis with mild shock. We will sp3 continue to fluid resuscitate administer Levaquin and vancomycin for nosocomial infection possibility. Patient is allergic to penicillins and cefepime. CT scan of the head is negative and COVID-19 test is negative as well. Mental status is mildly improved. We will admit patient to hospitalist service with strong emphasis on continued aggressive sepsis work-up and resuscitation.. 11/09 21:36 Order name: Amylase, Serum sp3 11/09 21:36 Order name: Basic Metabolic Panel; Complete Time: 23:36 sp3 11/09 21:36 Order name: Blood Culture Adult (2) sp3 11/09 21:36 Order name: CBC with Diff; Complete Time: 23:36 sp3 11/09 21:36 Order name: CPK; Complete Time: 23:36 sp3 11/09 21:36 Order name: Ckmb; Complete Time: 23:36 sp3 11/09 21:36 Order name: LFT's; Complete Time: 23:36 3 11/09 21:36 Order name: Lactate; Complete Time: 23:36 3 11/09 21:36 Order name: Lipase; Complete Time: 23:36 3 11/09 21:36 Order name: Procalcitonin 3 11/09 21:36 Order name: Protime (+inr); Complete Time: 23:36 3 11/09 21:36 Order name: Ptt, Activated; Complete Time: 23:36 [facility] 11/09 21:36 Order name: Troponin HS; Complete Time: 23:36 3 11/09 21:36 Order name: Urine Microscopic Only 3 11/09 21:36 Order name: Chest Single View XRAY 3 11/09 21:36 Order name: Accucheck; Complete Time: 22:52 3 11/09 21:36 Order name: Cardiac monitoring; Complete Time: 22:20 3 11/09 21:36 Order name: CT Head Brain wo Cont [facility] 11/09 21:37 Order name: Amylase; Complete Time: 23:36 [facility] 11/09 21:51 Order name: COVID-19 SARS RT PCR (Document "Date of Onset" if Symptomatic); Complete mw2 Time: 23:36 11/09 22:18 Order name: Urine Dipstick-Ancillary; Complete Time: 23:36 EDTX 11/09 23:01 Order name: Glucose, Ancillary Testing; Complete Time: 23:36 [facility]TX 11/09 23:50 Order name: Urine Culture [facility] 11/09 21:36 Order name: EKG - Nurse/Tech; Complete Time: 22:52 [facility] 11/09 21:36 Order name: IV Saline Lock - Large Bore; Complete Time: 22:20 3 11/09 21:36 Order name: Labs collected and sent; Complete Time: 22:20 3 11/09 21:36 Order name: O2 Per Protocol; Complete Time: 22:20 3 11/09 21:36 Order name: O2 Sat Monitoring; Complete Time: 22:20 3 11/09 21:36 Order name: Urine Dipstick-Ancillary (obtain specimen); Complete Time: 22:20 sp3 Administered Medications: 22:52 Drug: NS 0.9% (30 ml/kg) 30 ml/kg Route: IV; Rate: bolus; Site: right antecubital; sm5 11/10 00:01 Not Given (Physician Discretion): Tylenol 1000 mg PO once sp3 00:10 Drug: LevaQUIN (levofloxacin) 500 mg Volume: 100 ml; Route: IVPB; Infused Over: 60 sm5 mins; Site: right antecubital; 00:15 Drug: Tylenol Suppository 650 mg Route: HI; sm5 00:38 Drug: Zofran (Ondansetron) 4 mg Route: IVP; Site: right antecubital; sm5 01:30 Not Given (Physician Discretion): NS 0.9% 1000 ml IV at 1 bolus Per protocol; 1000 mL sm5 bolus 01:32 Drug: vancoMYCIN 1 grams Route: IVPB; Infused Over: 2 hrs; Site: right antecubital; sm5 Disposition Summary: 11/09/21 23:43 Hospitalization Ordered Hospitalization Status: Inpatient Admission sp3 Provider: Kevin Lemus sp3 Location: Telemetry/MedSur (Inpatient) sp3 Condition: Fair sp3 Problem: new sp3 Symptoms: have worsened sp3 Bed/Room Type: Standard sp3 Room Assignment: 232(11/10/21 02:38) eb1 Diagnosis - Urosepsis, dehydration, altered mental status sp3 Forms: - Medication Reconciliation Form sp3 - SBAR form sp3 Signatures: Dispatcher [employer] EDRama Benoit RN Ibeth Walker RN RN eb1 Calista Gamble MD MD sp3 Nguyen Humphries RN RN sm5 Corrections: (The following items were deleted from the chart) 02:38 11/09 23:43 sp3 eb1 11/10 03:22 03:21 PMHx: Diabetes - IDDM; sm5 sm5 03:22 03:21 PMHx: CHF; sm5 sm5 03:22 03:21 PMHx: Diabetes - NIDDM; sm5 sm5 03:22 03:21 PMHx: High Cholesterol; sm5 sm5 03:22 03:21 PMHx: PERIPHERAL NEUROPATHY; sm5 sm5 03:22 03:21 PMHx: Myocardial infarction; sm5 sm5
--- NOTE | 2021-11-09 23:44 | ER ---
Nurse's Notes [facility] Name: Marlena [facility] Age: 71 yrs Sex: Female : 1950 Arrival Date: 11/09/2021 Time: 21:28 Bed 5 Private MD: Diagnosis: Urosepsis, dehydration, altered mental status Presentation: 11/09 21:30 Chief complaint: EMS states: they were toned out for report of pt with altered mental bb status family states she was unresponsive on arrival pt was disoriented with BGL of 428 pt c/o fatigue. Coronavirus screen: altered mental status Client presents with at least one sign or symptom that may indicate coronavirus-19. Standard/surgical mask placed on the client. Ebola Screen: No symptoms or risks identified at this time. Initial Sepsis Screen:. Risk Assessment: Do you want to hurt yourself or someone else? Patient reports no desire to harm self or others. Onset of symptoms was November 09, 2021. 21:30 Method Of Arrival: EMS: [facility] bb 21:30 Acuity: RAVI 2 bb 11/10 01:11 Initial Sepsis Screen: Does the patient meet any 2 criteria? Temp <36.0*C (96.8*F)) or sm5 > 38.3*C (100.9*F). HR > 90 bpm. Yes Does the patient have a suspected source of infection? Yes: Dysuria/Frequency/Urgency/UTI If YES to both, name of provider notified: Calista Gamble MD. Historical: - Allergies: 11/09 21:32 Codeine; bb 21:32 Demerol; bb 21:32 diazepam; bb 21:32 Iodine; bb 21:32 novocaine; bb 21:32 PENICILLINS; bb 21:32 procaine HCl; bb 21:32 Propoxyphene HCl; bb 21:32 propoxyphene napsylate; bb 21:32 Sulfa (Sulfonamide Antibiotics); bb 21:32 Valium; bb 21:32 Vicodin; bb - Immunization history:: Adult Immunizations unknown. - Social history:: Smoking status: unknown. Screenin/13 01:10 Abuse screen: Denies threats or abuse. Denies injuries from another. Nutritional sm5 screening: No deficits noted. Tuberculosis screening: No symptoms or risk factors identified. Fall Risk No fall in past 12 months (0 pts). No secondary diagnosis (0 pts). IV access (20 points). Ambulatory Aid- None/Bed Rest/Nurse Assist (0 pts). Gait- Normal/Bed Rest/Wheelchair (0 pts) Mental Status- Oriented to own ability (0 pts). Total Castanon Fall Scale indicates No Risk (0-24 pts). Assessment: 11/09 21:45 General: Appears in no apparent distress. Behavior is cooperative. Pain: Complains of sm5 pain in leg Is chronic. Neuro: Level of Consciousness is awake, alert, Oriented to person, place, time, situation. Cardiovascular: No deficits noted. Capillary refill < 3 seconds Patient's skin is warm and dry. Cardiovascular: Rhythm is sinus tachycardia. Cardiovascular: Parent/caregiver reports patient has had fatigue. Respiratory: No deficits noted. Airway is patent Trachea midline Respiratory effort is even, labored. GI: No deficits noted. 11/10 00:20 Neuro: Level of Consciousness is lethargic, stuporous, Oriented to none. GI: Pt is tw5 actively vomiting green fluid. : Urine is cloudy. Derm: Skin temperature is hot. 00:29 Reassessment: RN in to place russell catheter. temperature russell in place. temperature sm5 105F. Dr Gamble made aware. Rectal tyenol given. Pt incontinent in bed prior to russell being placed. Pt unable to help assist roll over as she did previously. While changing pt's linens, pt had 1 episode of vomiting. Pt awake but no longer answering questions. Ice packs applied to bilateral axillas, and groin.. 00:59 Reassessment: Pt placed on cooling blanket. sm5 02:49 Reassessment: pt awake, alert and oriented now. temp down too 100.8, cooling blanket sm5 turned off. 03:20 Reassessment: pt's belongings put in belongings bag and brought to floor. pt's necklace sm5 placed in urine cup and labeled with pt sticker. pt's belongings include sweatpants, slippers, phone, wallet, medications, and necklace.. Vital Signs: 11/09 21:35 BP 147 / 78; Pulse 96; Resp 20 S; Temp 98.3(O); Pulse Ox 96% on R/A; Weight 72.57 kg bb (R); Height 5 ft. 7 in. (170.18 cm) (R); Pain 0/10; 22:00 BP 149 / 99; Pulse 102; Resp 20; Pulse Ox 100% on R/A; sm5 23:00 BP 177 / 78; Pulse 123; Resp 24; Pulse Ox 100% on R/A; sm5 11/10 00:20 Temp 105.1(C); tw5 01:00 BP 147 / 39; Pulse 108; Resp 28; Temp 103.8(C); Pulse Ox 96% on R/A; sm5 02:00 BP 130 / 52; Pulse 95; Resp 20; Temp 101.8(C); Pulse Ox 97% on R/A; sm5 02:39 Temp 100.8(C); sm5 11/09 21:35 Body Mass Index 25.06 (72.57 kg, 170.18 cm) bb ED Course: 11/09 21:28 Patient arrived in ED. bb 21:29 Calista Gamble MD is Attending Physician. sp3 21:32 Triage completed. bb 21:32 Arm band placed on Patient placed in an exam room, on a stretcher, on power line installer and repairer, bb on pulse oximetry. 22:11 Chest Single View XRAY In Process Unspecified. EDMS 22:18 Inserted saline lock: 20 gauge in right antecubital area, using aseptic technique. sm5 Blood collected. 22:20 Urine Microscopic Only Sent. sm5 22:20 Troponin HS Sent. sm5 22:20 Ptt, Activated Sent. sm5 22:20 Protime (+inr) Sent. sm5 22:20 Procalcitonin Sent. sm5 22:20 Lipase Sent. sm5 22:20 Lactate Sent. sm5 22:20 LFT's Sent. sm5 22:20 Ckmb Sent. sm5 22:20 CPK Sent. sm5 22:20 CBC with Diff Sent. sm5 22:20 Blood Culture Adult (2) Sent. sm5 22:20 Basic Metabolic Panel Sent. sm5 22:20 Amylase, Serum Sent. sm5 22:21 COVID-19 SARS RT PCR (Document "Date of Onset" if Symptomatic) Sent. sm5 22:31 Nguyne Humphries, RN is Primary Nurse. sm5 22:37 CT Head Brain wo Cont In Process Unspecified. EDMS 22:52 COVID-19 SARS RT PCR (Document "Date of Onset" if Symptomatic) Sent. sm5 23:43 Kevin Lemus MD is Hospitalizing Provider. sp3 11/10 00:20 Repositioned patient. Cleaned of incontinence. Linen changed. tw5 01:11 Patient has correct armband on for positive identification. Placed in gown. Bed in low sm5 position. Call light in reach. Side rails up X2. sleeve ironer on. Pulse ox on. NIBP on. 01:11 No provider procedures requiring assistance completed. sm5 03:22 Patient admitted, IV remains in place. sm5 Administered Medications: 11/09 22:52 Drug: NS 0.9% (30 ml/kg) 30 ml/kg Route: IV; Rate: bolus; Site: right antecubital; sm5 11/10 00:01 Not Given (Physician Discretion): Tylenol 1000 mg PO once sp3 00:10 Drug: LevaQUIN (levofloxacin) 500 mg Volume: 100 ml; Route: IVPB; Infused Over: 60 sm5 mins; Site: right antecubital; 00:15 Drug: Tylenol Suppository 650 mg Route: IL; sm5 00:38 Drug: Zofran (Ondansetron) 4 mg Route: IVP; Site: right antecubital; sm5 01:30 Not Given (Physician Discretion): NS 0.9% 1000 ml IV at 1 bolus Per protocol; 1000 mL sm5 bolus 01:32 Drug: vancoMYCIN 1 grams Route: IVPB; Infused Over: 2 hrs; Site: right antecubital; 5 Outcome: 11/09 23:43 Decision to Hospitalize by Provider. sp3 11/10 03:22 Admitted to Med/surg accompanied by nurse, via stretcher, with chart. sm5 Condition: stable Instructed on the need for admit. 03:22 Patient left the ED. 5 Signatures: Dispatcher [employer] EDMS Rama Cleveland, RN RN Calista Roche MD MD 3 Lucrecia Giron 5 Nguyen Humphries RN RN 5 Corrections: (The following items were deleted from the chart) 03:22 03:21 PMHx: Diabetes - IDDM; sm5 sm5 03:22 03:21 PMHx: CHF; sm5 sm5 : PMHx: Diabetes - NIDDM; sm5 sm5 : PMHx: High Cholesterol; sm5 sm5 : PMHx: PERIPHERAL NEUROPATHY; sm5 sm5 : PMHx: Myocardial infarction; sm5 sm5
[2021-11-09 23:49] LABS: Urine Bacteria >50 /HPF (<20); Urine RBC <5 /HPF (NONE SEEN)
[2021-11-10] MEDS ORDERED: ACETAMINOPHEN 650MG/RECT SUPP PR ONE (00:03)
[2021-11-10] MEDS ORDERED: Levofloxacin500mg IV 500 MG/100 ML BAG IV ONE (00:05)
[2021-11-10] MEDS ORDERED: ONDANSETRON 4 MG/2 ML VIAL ONE (00:38)
[2021-11-10] MEDS ORDERED: NA CHLORIDE 0.9% 250 ML ONE (01:27)
[2021-11-10] MEDS ORDERED: VANCOMYCIN 1 GM/VIAL ONE (01:27)
--- NOTE | 2021-11-10 03:38 | P.HP ---
Certification for Inpatient Patient admitted to: Inpatient With expected LOS: >2 Midnights Patient will require the following post-hospital care: None Practitioner: I am a practitioner with admitting privileges, knowledge of patient current condition, hospital course, and medical plan of care. Services: Services provided to patient in accordance with Admission requirements found in Title 42 Section 412.3 of the Code of Federal Regulations <Janes Cuba - Last Filed: 11/10/21 03:33> Patient History Date of Service: 11/10/21 Reason for admission: urosepsis History of Present Illness: Ms. Dia is a 71 yo F with CAD, DM, HLD, CHF who was brought in by EMS after neighbors found her confused and somnolent on her porch today. EMS says she was alert but less responsive upon arrival. In the ED, she was found to have a UTI and flagging for severe sepsis. Rectal temp was 105 and improved to 101.9 with rectal tylenol, cooling blankets, and ice. At bedside, she is alert, able to answer basic questions, but does not remember what happened today. She received vancomycin and levaquin in the ED and admitted for further treatment. WBC 17.5 Na 131 BUN 25 Cr 1.47 GFR 35 Glu 343 procal 3.38 - Past Medical/Surgical History Diabetic: Yes -: Diabetes mellitus type 2 IDDM -: Hypertension -: CHF -: History of CVA -: Psoriasis -: Morbid obesity -: COPD -: Tobacco abuse -: hyperlipidemia -: chronic uti -: carpal tunnel -: peripheral neuropathy -: Right total knee replacement -: Left knee repair -: Benign brain tumor removed -: Carpal tunnel -: Foot surgery -: Elbow surgery Psychosocial/ Personal History: The patient is , has 3 children. She does not work. 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 - Family History Mother -: Lung disease, Cancer Notes: pulmonary emboli Father -: Stroke, Cancer Notes: throat ca - Social History Smoking Status: Unknown if ever smoked Alcohol use: No CD- Drugs: No Caffeine use: Yes Place of Residence: Home <Janes Cuba - Last Filed: 11/10/21 03:33> Date of Service: 11/13/21 <Kevin Lemus - Last Filed: 11/13/21 16:07> Allergies codeine [Codeine] Allergy (Severe, Verified 11/27/16 23:01) Anaphylaxis Penicillins Allergy (Severe, Verified 11/27/16 23:01) Anaphylaxis procaine HCl [From Novocain] Allergy (Severe, Verified 11/27/16 23:01) Shortness of breath acetaminophen [From Darvocet-N 100] Allergy (Intermediate, Verified 11/27/16 23:01) Shortness of breath diazepam [From Valium] Allergy (Intermediate, Verified 11/27/16 23:01) Shortness of breath iodine Allergy (Intermediate, Verified 11/27/16 23:01) Anaphylaxis propoxyphene HCl [From Darvon] Allergy (Intermediate, Verified 11/27/16 23:01) Shortness of breath propoxyphene napsylate [From Darvocet-N 100] Allergy (Intermediate, Verified 11/27/16 23:01) Shortness of breath Sulfa (Sulfonamide Antibiotics) Allergy (Intermediate, Verified 11/27/16 23:01) Hives/Rash hydrocodone [From Vicodin] Allergy (Unverified 07/25/17 08:14) Unknown meperidine [From Demerol] Allergy (Unverified 02/22/17 14:58) Unknown novocaine Allergy (Uncoded 07/25/17 08:14) Unknown Home Medications: Aspirin 81 mg PO DAILY 11/28/16 Atorvastatin Calcium [Lipitor*] 20 mg PO DAILY 11/28/16 Budesonide/Formoterol Fumarate [Symbicort 160-4.5 Mcg Inhaler] 2 puff IH BID #1 hfa.aer.ad 11/28/16 Fenofibrate [Tricor*] 145 mg PO DAILY 11/28/16 Fludrocortisone [Florinef *] 0.1 mg PO DAILY 11/28/16 Gabapentin [Gralise] 300 mg PO TID 11/28/16 Insulin Detemir [Levemir Flextouch] 20 unit SQ BEDTIME #1 giovany 11/28/16 PARoxetine HCL [Paroxetine HCl] 20 mg PO DAILY 11/28/16 Promethazine HCl 25 mg PO Q6HR PRN 11/28/16 Trospium Chloride [Sanctura] 20 mg PO BID 11/28/16 clonazePAM [Clonazepam] 1 mg PO BEDTIME 01/31/17 traMADol HCL [Ultram*] 50 mg PO Q6HR 11/28/16 Furosemide 20 mg PO BID 02/14/17 Potassium Oral Tab [Klor-Con 10 mEq Tab*] 10 meq PO DAILY 02/14/17 Hydrocortisone [Cortef] 20 mg PO DAILY #30 tablet 02/17/17 Minocycline HCl 100 mg PO BID #14 capsule 02/17/17 Review of Systems is unable to be obtained General: Fever Eyes: Unremarkable ENT: Unremarkable Respiratory: Unremarkable Cardiovascular: Unremarkable Gastrointestinal: Unremarkable Genitourinary: Unremarkable Musculoskeletal: Unremarkable Integumentary: Unremarkable Neurological: Confusion, As per HPI Lymphatics: Unremarkable <Janes [place] - Last Filed: 11/10/21 03:33> Physical Examination - Vital Signs Temperature: 98.3 F Blood Pressure: 149/99 Pulse: 102 Respirations: 20 - Physical Exam General: Confused HEENT: Atraumatic, PERRLA, Mucous membr. moist/pink, EOMI, Sclerae nonicteric Neck: Supple, 2+ carotid pulse no bruit, No LAD, Without JVD or thyroid abnormality Respiratory: Clear to auscultation bilaterally, Normal air movement Cardiovascular: Regular rate/rhythm, Normal S1 S2 Gastrointestinal: Normal bowel sounds, No tenderness Musculoskeletal: No tenderness Integumentary: Skin breakdown, Tenderness/swelling Neurological: Normal speech, Normal strength at 5/5 x4 extr, Normal tone, Abnormal affect Lymphatics: No axilla or inguinal lymphadenopathy Urinary: Kanh catheter - Studies Laboratory Data (last 24 hrs) 11/09/21 21:45: PT 14.6 H, INR 1.27, APTT 32.6 11/09/21 21:45: WBC 17.50 H, Hgb 13.6, Hct 41.0, Plt Count 193 11/09/21 21:45: Sodium 131 L, Potassium 4.0, BUN 25 H, Creatinine 1.47 H, Glucose 343 H, Total Bilirubin 1.1 H, AST 29, ALT 23, Alkaline Phosphatase 75, Amylase 12 L, Lipase 18 L <Janes Cuba - Last Filed: 11/10/21 03:33> - Studies Microbiology Data (last 24 hrs): 11/09/21 21:45 Blood - Blood Aerobic Blood Culture - Final Escherichia Coli 11/09/21 21:45 Blood - Blood Blood Culture Gram Stain - Final 11/09/21 21:45 Blood - Blood Anaerobic Blood Culture - Final Escherichia Coli 11/09/21 21:45 Blood - Blood Gram Stain - Final 11/09/21 21:50 Blood - Blood Aerobic Blood Culture - Final Escherichia Coli 11/09/21 21:50 Blood - Blood Blood Culture Gram Stain - Final 11/09/21 21:50 Blood - Blood Anaerobic Blood Culture - Final Escherichia Coli 11/09/21 21:50 Blood - Blood Gram Stain - Final <Kayleigh Lemuscheryl Laurent - Last Filed: 11/13/21 16:07> Assessment and Plan - Problems (Diagnosis) (1) Altered mental status Onset Date: 11/28/16 Current Visit: No Status: Acute Qualifiers: Altered mental status type: unspecified Qualified Code(s): R41.82 - Altered mental status, unspecified (2) COPD (chronic obstructive pulmonary disease) Current Visit: No Status: Chronic (3) Dehydration Current Visit: No Status: Acute (4) Fever Current Visit: No Status: Acute Qualifiers: Fever type: due to other condition Qualified Code(s): R50.81 - Fever presenting with conditions classified elsewhere (5) Severe sepsis Onset Date: 02/14/17 Current Visit: No Status: Acute (6) CHF (congestive heart failure) Current Visit: No Status: Chronic (7) Diabetes mellitus Current Visit: No Status: Chronic Qualifiers: Diabetes mellitus type: type 2 Diabetes mellitus 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 insulin use: unspecified 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 insulin use status Diabetes mellitus complication status: with hyperglycemia Qualified Code(s): E11.65 - Type 2 diabetes mellitus with hyperglycemia (8) History of CVA (cerebrovascular accident) Current Visit: No Status: Chronic (9) Hyperlipidemia Current Visit: No Status: Chronic (10) Hypertension Current Visit: No Status: Chronic Qualifiers: Hypertension type: primary hypertension Qualified Code(s): I10 - Essential (primary) hypertension - Plan continue IV vancomycin and levaquin urine cultures pending continue IV fluids continue antipyretics sliding scale insulin and accuchecks, A1c sepsis protocol continue to monitor kidney function reconcile and continue home medications DVT ppx Discharge Plan: Home Plan to discharge in: Greater than 2 days - Advance Directives Does patient have a Living Will: No Does patient have a Durable POA for Healthcare: Yes - Code Status/Comfort Care Code Status Assessed: Yes (full code ) Critical Care: No Time Spent Managing Pts Care (In Minutes): 70 <Janes Cuba - Last Filed: 11/10/21 03:33> Date of Service: 11/10/21 Subjective Agree with HPI as mentioned above Physical Examination - Vital Signs reviewed - Physical Exam General: Confused Neck: JVP Respiratory: basilar crackles Cardiovascular: Regular rate/rhythm, Normal S1 S2 with DANIELLE II/ Gastrointestinal: Normal bowel sounds, No tenderness Integumentary: Skin breakdown, Tenderness/swelling; hematoma Ext: positive edema Neurological: no focal deficits Assessment and Plan - Problems (Diagnosis) (1) Altered mental status Onset Date: 11/10/21 Current Visit: No Status: Acute Altered mental status type: unspecified Qualified Code(s): R41.82 - Altered mental status, unspecified (2) Severe pulmonary hypertension Current Visit: No Status: Chronic (3) Dehydration Current Visit: No Status: Acute (4) Fever Current Visit: No Status: Acute Fever type: due to other condition Qualified Code(s): R50.81 - Fever presenting with conditions classified elsewhere (5) Severe sepsis Onset Date: 11/10/21 Current Visit: No Status: Acute (6) CHF (congestive heart failure), right heart failure Current Visit: No Status: Acute (7) Diabetes mellitus Current Visit: No Status: Chronic Diabetes mellitus type: type 2 Diabetes mellitus 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 insulin use: unspecified 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 insulin use status Diabetes mellitus complication status: with hyperglycemia Qualified Code(s): E11.65 - Type 2 diabetes mellitus with hyperglycemia (8) History of CVA (cerebrovascular accident) Current Visit: No Status: Chronic (9) Hypertension Current Visit: No Status: Chronic Hypertension type: primary hypertension Qualified Code(s): I10 - Essential (primary) hypertension - Plan -continue IV antibiotics and diuretics -urine cultures pending -continue IV fluids -continue antipyretics -continue with strict BS and BP control -sliding scale insulin and accuchecks, A1c -sepsis protocol -continue to monitor kidney function -reconcile and continue home medications -DVT prophylaxis <Kevin Lemus - Last Filed: 11/13/21 16:07>
[2021-11-10] MEDS ORDERED: HYDRALAZINE HCL 20 MG/ML VIAL IV PRN (05:05)
[2021-11-10] MEDS ORDERED: ACETAMINOPHEN 650MG/RECT SUPP PR PRN (05:05)
[2021-11-10] MEDS ORDERED: NA CHLORIDE 0.9% 500 ML IV ONE (05:05)
[2021-11-10] MEDS ORDERED: ACETAMINOPHEN 500 MG TAB PO PRN (05:05)
[2021-11-10] MEDS ORDERED: ONDANSETRON 4 MG/2 ML VIAL IV PRN (05:05)
[2021-11-10] MEDS: NA CHLORIDE 0.9% 1,000 ML IV SCH ×3 (05:37→21:14)
[2021-11-10] MEDS ORDERED: VANCOMYCIN 250 MG in NA CHLORIDE 0.9% 100 ML IVPB ONE (05:45)
[2021-11-10 05:55] LABS: Absolute Lymphocytes (CBC) 1.2 K/uL (0.7-4.9); Hematocrit 40.7 % (36.0-45.0); Lymphocytes % 6.7 % (15.3-44.8); MPV 7.2 fL (7.6-11.3)
[2021-11-10 06:14] LABS: Albumin 2.2 g/dL (3.4-5.0); Potassium 3.7 mmol/L (3.5-5.1); Protein, Total 6.4 g/dL (6.4-8.2)
[2021-11-10] MEDS: INSULIN -REGULAR HUMAN 50 UNIT/0.5 ML ML SQ SCH ×4 (08:52→21:00)
[2021-11-10] MEDS: HEPARIN 5000 UNIT/ML 1 ML VIAL SQ SCH ×2 (08:54→16:29)
[2021-11-10] MEDS ORDERED: POTASSIUM CL SA 10 MEQ TAB PO ONE (09:00)
--- NOTE | 2021-11-10 09:53 | RAD REPORT ---
EXAM DESCRIPTION: RAD - Chest Single View - 11/09/2021 10:11 pm CLINICAL HISTORY: altered mental status Chest pain. COMPARISON: Chest Pa And Lat (2 Views) dated 03/14/2019; Chest Single View dated 12/15/2017; Chest Sin gle View dated 02/13/2017; Chest Single View dated 11/28/2016 FINDINGS: Portable technique limits examination quality. Mild bilateral interstitial lung opacities are seen, probably representing a mild viral infection. Th e heart is upper limit of normal in size. No displaced fractures.
--- NOTE | 2021-11-10 11:32 | RAD REPORT ---
EXAM DESCRIPTION: CT of the head without contrast CLINICAL HISTORY: CONFUSED COMPARISON: None available TECHNIQUE: Axial CT of the head obtained from the skull apex to the skull base without contrast. Thi s exam was performed according to our departmental dose-optimization program, which includes automate d exposure control, adjustment of the mA and/or kV according to patient size and/or use of iterative reconstruction technique. FINDINGS: No acute intracranial hemorrhage identified. No mass, mass effect, shift of the midline, a bnormal extra-axial fluid collection or CT evidence of acute ischemic change identified. The ventricu lar system and sulcal spaces are mildly enlarged compatible with mild cerebral atrophy. Scattered a reas of hypodensity throughout the supratentorial white matter are nonspecific and may be related to chronic small vessel ischemic change. Mucosal thickening of the paranasal sinuses. Mastoid air cells are well aerated. No skull fracture id entified. Visualized orbits and globes are unremarkable. Atherosclerotic calcification of the intracr anial internal carotid arteries. Postoperative change in the right calvarium. IMPRESSION: 1. No acute intracranial abnormality by CT criteria. Electronically signed by: Leno Tate 11/09/2021 10:49 PM [employer]ER Due to temporary technical issues with the PACS/Fluency reporting system, reports are being signed by the in house radiologist without review as a courtesy to ensure prompt reporting. The interpreting r adiologist is fully responsible for the content of the report.
[2021-11-10] MEDS ORDERED: VANCOMYCIN 1 GM in NA CHLORIDE 0.9% 250 ML IVPB SCH (13:00)
[2021-11-10] MEDS ORDERED: Levofloxacin 750mg IV 750 MG/150 ML BAG IV SCH (23:00)
[2021-11-11] MEDS: HEPARIN 5000 UNIT/ML 1 ML VIAL SQ SCH ×3 (01:46→17:24)
[2021-11-11 05:20] VITALS: BMI 25.0
[2021-11-11 05:56] LABS: Absolute Lymphocytes (CBC) 1.1 K/uL (0.7-4.9); Hematocrit 35.8 % (36.0-45.0); MPV 7.4 fL (7.6-11.3); RBC Red Blood Cell Count 4.25 M/uL (3.86-4.86)
[2021-11-11] MEDS: INSULIN -REGULAR HUMAN 50 UNIT/0.5 ML ML SQ SCH ×4 (07:30→21:00)
[2021-11-11] MEDS: NA CHLORIDE 0.9% 1,000 ML IV SCH ×2 (07:45→17:29)
[2021-11-11 08:07] LABS: Albumin 1.8 g/dL (3.4-5.0); Bilirubin Total 0.6 mg/dL (0.2-1.0); Magnesium 2.1 mg/dL (1.8-2.4); Potassium 3.6 mmol/L (3.5-5.1); Protein, Total 5.7 g/dL (6.4-8.2); Thyroid Stimulating Hormone 1.47 uIU/mL (0.360-3.740)
[2021-11-11] MEDS: Levofloxacin 750mg IV 750 MG/150 ML BAG IV SCH (08:37)
[2021-11-11] MEDS ORDERED: POTASSIUM PHOS IN 0.9 % NACL 15 MMOL/250 ML BAG IV ONE (09:00)
--- NOTE | 2021-11-11 11:50 | P.CNS ---
Date of Consult: 11/11/21 Chief Complaint: urosepsis History of Present Illness: Patient is a 71-year-old female with a past medical history significant of coronary artery disease, diabetes mellitus, hyperlipidemia, and congestive heart failure who was brought to the emergency department after neighbors found her confused and somnolent on her porch. Patient still has altered mental status at bedside/is somewhat lethargic as such all history obtained via chart review. Patient was septic on admission with leukocytosis, T-max of 105.1, tachycardia, and tachypnea. Patient previously placed on vancomycin and Levaquin and admitted for further treatment. Preliminary blood and urine cultures growing gram negative rods. Patient responding well to antibiotics, afebrile, creatinine improving, WBC now within normal range. Allergies codeine [Codeine] Allergy (Severe, Verified 11/27/16 23:01) Anaphylaxis Penicillins Allergy (Severe, Verified 11/27/16 23:01) Anaphylaxis procaine HCl [From Novocain] Allergy (Severe, Verified 11/27/16 23:01) Shortness of breath acetaminophen [From Darvocet-N 100] Allergy (Intermediate, Verified 11/27/16 23:01) Shortness of breath diazepam [From Valium] Allergy (Intermediate, Verified 11/27/16 23:01) Shortness of breath iodine Allergy (Intermediate, Verified 11/27/16 23:01) Anaphylaxis propoxyphene HCl [From Darvon] Allergy (Intermediate, Verified 11/27/16 23:01) Shortness of breath propoxyphene napsylate [From Darvocet-N 100] Allergy (Intermediate, Verified 11/27/16 23:01) Shortness of breath Sulfa (Sulfonamide Antibiotics) Allergy (Intermediate, Verified 11/27/16 23:01) Hives/Rash hydrocodone [From Vicodin] Allergy (Unverified 07/25/17 08:14) Unknown meperidine [From Demerol] Allergy (Unverified 02/22/17 14:58) Unknown novocaine Allergy (Uncoded 07/25/17 08:14) Unknown Home Medications: Aspirin 81 mg PO DAILY 11/28/16 Atorvastatin Calcium [Lipitor*] 20 mg PO DAILY 11/28/16 Budesonide/Formoterol Fumarate [Symbicort 160-4.5 Mcg Inhaler] 2 puff IH BID #1 hfa.aer.ad 11/28/16 Fenofibrate [Tricor*] 145 mg PO DAILY 11/28/16 Fludrocortisone [Florinef *] 0.1 mg PO DAILY 11/28/16 Gabapentin [Gralise] 300 mg PO TID 11/28/16 Insulin Detemir [Levemir Flextouch] 20 unit SQ BEDTIME #1 giovany 11/28/16 PARoxetine HCL [Paroxetine HCl] 20 mg PO DAILY 11/28/16 Promethazine HCl 25 mg PO Q6HR PRN 11/28/16 Trospium Chloride [Sanctura] 20 mg PO BID 11/28/16 clonazePAM [Clonazepam] 1 mg PO BEDTIME 11/28/16 traMADol HCL [Ultram*] 50 mg PO Q6HR 11/28/16 Furosemide 20 mg PO BID 02/14/17 Potassium Oral Tab [Klor-Con 10 mEq Tab*] 10 meq PO DAILY 02/14/17 Hydrocortisone [Cortef] 20 mg PO DAILY #30 tablet 02/17/17 Minocycline HCl 100 mg PO BID #14 capsule 02/17/17 - Past Medical/Surgical History Diabetic: Yes -: Diabetes mellitus type 2 IDDM -: Hypertension -: CHF -: History of CVA -: Psoriasis -: Morbid obesity -: COPD -: Tobacco abuse -: hyperlipidemia -: chronic uti -: carpal tunnel -: peripheral neuropathy -: Right total knee replacement -: Left knee repair -: Benign brain tumor removed -: Carpal tunnel -: Foot surgery -: Elbow surgery Psychosocial/ Personal History: The patient is , has 3 children. She does not work. 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 Alert to self.) HEENT: Atraumatic, Normocephalic Neck: Supple Respiratory: Clear to auscultation bilaterally, Normal air movement Cardiovascular: Regular rate/rhythm, Normal S1 S2 Gastrointestinal: Normal bowel sounds, Soft and benign, Non-distended Musculoskeletal: No clubbing, No swelling, No contractures Integumentary: No rashes, No breakdown Laboratory Last Values WBC 17.50 K/uL (4.3-10.9) H 11/09/21 21:45 RBC 4.83 M/uL (3.86-4.86) 11/09/21 21:45 Hgb 13.6 g/dL (12.0-15.0) 11/09/21 21:45 Hct 41.0 % (36.0-45.0) 11/09/21 21:45 MCV 84.9 fL (80-100) 11/09/21 21:45 MCH 28.2 pg (27.0-35.0) 11/09/21 21:45 MCHC 33.2 g/dL (32.0-36.0) 11/09/21 21:45 RDW 13.3 % (12.1-15.2) 11/09/21 21:45 Plt Count 193 K/uL (152-406) 11/09/21 21:45 MPV 7.4 fL (7.6-11.3) L 11/09/21 21:45 Neutrophils % 82.0 % (41.7-73.7) H 11/09/21 21:45 Lymphocytes % 9.7 % (15.3-44.8) L 11/09/21 21:45 Monocytes % 7.9 % (3.3-12.3) 11/09/21 21:45 Eosinophils % 0.0 % (0-4.4) 11/09/21 21:45 Basophils % 0.4 % (0-1.3) 11/09/21 21:45 Absolute Neutrophils 14.4 K/uL (1.8-8.0) H 11/09/21 21:45 Absolute Lymphocytes 1.7 K/uL (0.7-4.9) 11/09/21 21:45 Absolute Monocytes 1.4 K/uL (0.1-1.3) H 11/09/21 21:45 Absolute Eosinophils 0.0 K/uL (0-0.5) 11/09/21 21:45 Absolute Basophils 0.1 K/uL (0-0.5) 11/09/21 21:45 PT 14.6 SECONDS (9.5-12.5) H 11/09/21 21:45 INR 1.27 11/09/21 21:45 APTT 32.6 SECONDS (24.3-36.9) 11/09/21 21:45 Sodium 131 mmol/L (136-145) L 11/09/21 21:45 Potassium 4.0 mmol/L (3.5-5.1) 11/09/21 21:45 Chloride 100 mmol/L (98-107) 11/09/21 21:45 Carbon Dioxide 24 mmol/L (21-32) 11/09/21 21:45 BUN 25 mg/dL (7-18) H 11/09/21 21:45 Creatinine 1.47 mg/dL (0.55-1.3) H 11/09/21 21:45 Estimated GFR 35 mL/min (=/>90) L 11/09/21 21:45 Glucose 343 mg/dL (74-106) H 11/09/21 21:45 POC Glucose 365 mg/dL (65-120) H 11/09/21 22:49 Lactic Acid 1.7 mmol/L (0.4-2.0) 11/09/21 21:45 Calcium 8.5 mg/dL (8.5-10.1) 11/09/21 21:45 Total Bilirubin 1.1 mg/dL (0.2-1.0) H 11/09/21 21:45 Direct Bilirubin 0.3 mg/dL (0-0.2) H 11/09/21 21:45 AST 29 U/L (15-37) 11/09/21 21:45 ALT 23 U/L (12-78) 11/09/21 21:45 Alkaline Phosphatase 75 U/L (45-117) 11/09/21 21:45 Creatine Kinase 794 U/L (26-192) H 11/09/21 21:45 CK-MB (CK-2) 6.2 ng/mL (1.0-3.6) H 11/09/21 21:45 Troponin I High Sens 15.20 pg/mL (<58.9) 11/09/21 21:45 Serum Total Protein 7.6 g/dL (6.4-8.2) 11/09/21 21:45 Albumin 2.9 g/dL (3.4-5.0) L 11/09/21 21:45 Globulin 4.7 g/dL (2.3-3.5) H 11/09/21 21:45 Albumin/Globulin Ratio 0.6 (1.1-1.8) L 11/09/21 21:45 Amylase 12 U/L (25-115) L 11/09/21 21:45 Lipase 18 U/L (73-393) L 11/09/21 21:45 Procalcitonin 3.38 ng/mL (<0.050) H 11/09/21 21:45 Urine pH 5.5 (5.0-7.0) 11/09/21 22:16 Ur Specific [place] 1.015 (1.005-1.030) 11/09/21 22:16 Glucose (UA)(Auto) 3+ (Negative) H 11/09/21 22:16 Urine Ketones 1+ (Negative) H 11/09/21 22:16 Urine Blood 2+ (Negative) H 11/09/21 22:16 Urine Nitrite Positive (Negative) H 11/09/21 22:16 Ur Leukocyte Esterase 1+ (Negative) H 11/09/21 22:16 Urine RBC <5 /HPF (NONE SEEN) 11/09/21 22:15 Urine WBC >50 /HPF (<5) H 11/09/21 22:15 Ur Squamous Epith Cells 10-20 /HPF (NONE SEEN) H 11/09/21 22:15 Urine Bacteria >50 /HPF (<20) H 11/09/21 22:15 Urine Culture Reflexed Reflexed 11/09/21 22:15 Urine Total Protein 2+ (Negative) H 11/09/21 22:16 SARS-CoV-2 Rap RNA(RT-PCR) Negative (NEGATIVE) 11/09/21 21:47 Conclusions/Impression: Antibiotics: Levaquin Start: 11/10 Vancomycin Start: 11/11 Lines: Left and right peripheral intravenous lines Kahn catheter Assessment/plan Urosepsis Blood and urine cultures growing gram-negative rods, continue Levaquin until fu ll culture reports are obtained. Recommend discontinuing vancomycin at this time. Recommend increasing patient's Levaquin dose from every 48 hours to every 24 as current creatinine clearance is greater than 50 mL/min. Leukocytosis Downtrending, WBC now within normal range. ANMOL Renal function improving, avoid nephrotoxic agents and renally renally dose all antibiotics. Current creatinine clearance estimated to be 51.4 mL/min. CHF Diabetes CAD Hypertension Medical management per primary team Plan of care discussed with Dr. Dubon Thank for consultation.
[2021-11-11] MEDS: VANCOMYCIN 1.25 GM in NA CHLORIDE 0.9% 250 ML IVPB SCH (12:44)
[2021-11-11] MEDS ORDERED: HYDROCORTISONE SUC 100 MG INJ IV ONE (18:00)
[2021-11-11] MEDS ORDERED: VANCOMYCIN 1.25 GM in NA CHLORIDE 0.9% 250 ML IVPB SCH (18:00)
[2021-11-12] MEDS: HEPARIN 5000 UNIT/ML 1 ML VIAL SQ SCH ×3 (05:15→21:54)
[2021-11-12] MEDS: NA CHLORIDE 0.9% 1,000 ML IV SCH ×2 (05:16→23:24)
[2021-11-12 06:07] LABS: Phosphorus 3.2 mg/dL (2.5-4.9); Potassium 4.1 mmol/L (3.5-5.1)
[2021-11-12] MEDS: INSULIN -REGULAR HUMAN 50 UNIT/0.5 ML ML SQ SCH ×4 (07:30→21:00)
[2021-11-12 07:58] LABS: Absolute Lymphocytes (CBC) 0.7 K/uL (0.7-4.9); Hematocrit 54.2 % (36.0-45.0)
[2021-11-12 08:39] LABS: Magnesium 2.8 mg/dL (1.8-2.4); Potassium 3.8 mmol/L (3.5-5.1); Thyroid Stimulating Hormone 2.64 uIU/mL (0.360-3.740)
[2021-11-12] MEDS: VANCOMYCIN 1.25 GM in NA CHLORIDE 0.9% 250 ML IVPB SCH (11:00)
[2021-11-13] MEDS: HEPARIN 5000 UNIT/ML 1 ML VIAL SQ SCH ×3 (05:12→21:00)
[2021-11-13 07:22] LABS: Albumin 1.7 g/dL (3.4-5.0); Bilirubin Total 0.8 mg/dL (0.2-1.0); Magnesium 1.9 mg/dL (1.8-2.4); Potassium 3.4 mmol/L (3.5-5.1); Protein, Total 5.9 g/dL (6.4-8.2); Protime INR 1.18
[2021-11-13 07:28] LABS: Absolute Lymphocytes (CBC) 1.2 K/uL (0.7-4.9); Hematocrit 37.4 % (36.0-45.0); Lymphocytes % 15.6 % (15.3-44.8); MPV 8.2 fL (7.6-11.3); RBC Red Blood Cell Count 4.49 M/uL (3.86-4.86)
[2021-11-13] MEDS: INSULIN -REGULAR HUMAN 50 UNIT/0.5 ML ML SQ SCH ×4 (07:30→21:00)
[2021-11-13] MEDS ORDERED: POTASSIUM 25 MEQ EFFERV TAB PO ONE ×2 (08:31→19:57)
[2021-11-13] MEDS: Levofloxacin 750mg IV 750 MG/150 ML BAG IV SCH (09:36)
[2021-11-13] MEDS: NA CHLORIDE 0.9% 1,000 ML IV SCH (13:22)
--- NOTE | 2021-11-13 15:47 | P.PN ---
Date of Service: 11/11/21 Subjective Patient with dyspnea; still on 2L; slowly improving Physical Examination - Vital Signs reviewed - Physical Exam General: More awake and alert Neck: JVP Respiratory: basilar crackles Cardiovascular: Regular rate/rhythm, Normal S1 S2 with DANIELLE II/ Gastrointestinal: Normal bowel sounds, No tenderness Integumentary: Skin breakdown, Tenderness/swelling; hematoma Ext: positive edema Neurological: no focal deficits Assessment and Plan - Problems (Diagnosis) (1) Altered mental status Onset Date: 11/10/21 Current Visit: No Status: Acute Altered mental status type: unspecified Qualified Code(s): R41.82 - Altered mental status, unspecified (2) Severe pulmonary hypertension Current Visit: No Status: Chronic (3) Dehydration Current Visit: No Status: Acute (4) Fever Current Visit: No Status: Acute Fever type: due to other condition Qualified Code(s): R50.81 - Fever presenting with conditions classified elsewhere (5) Severe sepsis Onset Date: 11/10/21 Current Visit: No Status: Acute (6) CHF (congestive heart failure), right heart failure Current Visit: No Status: Acute (7) Diabetes mellitus Current Visit: No Status: Chronic Diabetes mellitus type: type 2 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 petroleum terminal plant 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 insulin use status Diabetes mellitus complication status: with hyperglycemia Qualified Code(s): E11.65 - Type 2 diabetes mellitus with hyperglycemia (8) History of CVA (cerebrovascular accident) Current Visit: No Status: Chronic (9) Hypertension Current Visit: No Status: Chronic Hypertension type: primary hypertension Qualified Code(s): I10 - Essential (primary) hypertension - Plan -continue IV antibiotics -urine cultures pending -continue IV fluids -continue antipyretics -continue with strict BS and BP control -sliding scale insulin and accuchecks, A1c -sepsis protocol -continue to monitor kidney function -reconcile and continue home medications -DVT prophylaxis
--- NOTE | 2021-11-13 16:10 | P.PN ---
Date of Service: 11/12/21 Subjective Patient is showing some improvement. Continue to diurese and continue on antibiotic therapy. Patient still lethargic and still gets sleepy but she is eating and doing a little bit more than she has been. We will get her out of bed and ambulate her. Physical Examination - Vital Signs reviewed - Physical Exam General: More awake and alert Neck: JVP Respiratory: basilar crackles Cardiovascular: Regular rate/rhythm, Normal S1 S2 with DANIELLE II/ Gastrointestinal: Normal bowel sounds, No tenderness Integumentary: Skin breakdown, Tenderness/swelling; hematoma Ext: positive edema Neurological: no focal deficits Assessment and Plan - Problems (Diagnosis) (1) Altered mental status Onset Date: 11/10/21 Current Visit: No Status: Acute Altered mental status type: unspecified Qualified Code(s): R41.82 - Altered mental status, unspecified (2) Severe pulmonary hypertension Current Visit: No Status: Chronic (3) Dehydration Current Visit: No Status: Acute (4) Fever Current Visit: No Status: Acute Fever type: due to other condition Qualified Code(s): R50.81 - Fever presenting with conditions classified elsewhere (5) Severe sepsis Onset Date: 11/10/21 Current Visit: No Status: Acute (6) CHF (congestive heart failure), right heart failure Current Visit: No Status: Acute (7) Diabetes mellitus Current Visit: No Status: Chronic Diabetes mellitus type: type 2 Diabetes mellitus 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 Diabetes mellitus complication status: with hyperglycemia Qualified Code(s): E11.65 - Type 2 diabetes mellitus with hyperglycemia (8) History of CVA (cerebrovascular accident) Current Visit: No Status: Chronic (9) Hypertension Current Visit: No Status: Chronic Hypertension type: primary hypertension Qualified Code(s): I10 - Essential (primary) hypertension - Plan -continue IV antibiotics -urine cultures pending -continue IV fluids -continue antipyretics -continue with strict BS and BP control -sliding scale insulin and accuchecks, A1c -sepsis protocol -continue to monitor kidney function -reconcile and continue home medications -DVT prophylaxis
[2021-11-13] MEDS ORDERED: HYDROCORTISONE SUC 100 MG INJ IV ONE (16:11)
--- NOTE | 2021-11-13 16:24 | P.PN ---
Date of Service: 11/13/21 Subjective Patient continues to improve; no new complaints. Patient's clinical symptoms are improving. Working with PT. Anticipate DC home soon if strength continues to improve; she does ambulate on her own at home. Physical Examination - Vital Signs reviewed - Physical Exam General: AAO x3 Respiratory: Clear bilaterally Cardiovascular: Regular rate/rhythm, Normal S1 S2 with DANIELLE II/ Gastrointestinal: Normal bowel sounds, No tenderness Integumentary: WNL Neurological: no focal deficits Assessment and Plan - Problems (Diagnosis) (1) Altered mental status Onset Date: 11/10/21 Current Visit: No Status: Acute Altered mental status type: unspecified Qualified Code(s): R41.82 - Altered mental status, unspecified (2) UTI Current Visit: No Status: Acute (3) Dehydration Current Visit: No Status: Acute (4) Fever Current Visit: No Status: Acute Fever type: due to other condition Qualified Code(s): R50.81 - Fever presenting with conditions classified elsewhere (5) Severe sepsis Onset Date: 11/10/21 Current Visit: No Status: Acute (6) CHF (congestive heart failure) Current Visit: No Status: Acute (7) Diabetes mellitus Current Visit: No Status: Chronic Diabetes mellitus type: type 2 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 -continue IV fluids -continue antipyretics -continue with strict BS and BP control -continue with physical therapy and ambulate patient -continue with anti-platelet therapy -DVT prophylaxis
[2021-11-13] MEDS: TRAMADOL HCL 50 MG TAB PO PRN (22:10)
[2021-11-14] MEDS: NA CHLORIDE 0.9% 1,000 ML IV SCH ×3 (02:25→15:51)
[2021-11-14] MEDS: HEPARIN 5000 UNIT/ML 1 ML VIAL SQ SCH ×3 (05:00→20:44)
[2021-11-14 06:25] LABS: Absolute Lymphocytes (CBC) 1.7 K/uL (0.7-4.9); Hematocrit 37.5 % (36.0-45.0); Lymphocytes % 21.9 % (15.3-44.8); MPV 7.9 fL (7.6-11.3); RBC Red Blood Cell Count 4.51 M/uL (3.86-4.86)
[2021-11-14] MEDS: INSULIN -REGULAR HUMAN 50 UNIT/0.5 ML ML SQ SCH ×4 (07:30→20:44)
[2021-11-14 07:55] LABS: Albumin 1.5 g/dL (3.4-5.0); Bilirubin Total 0.6 mg/dL (0.2-1.0); Magnesium 2.9 mg/dL (1.8-2.4); Potassium 3.7 mmol/L (3.5-5.1); Protein, Total 5.5 g/dL (6.4-8.2)
--- NOTE | 2021-11-14 15:48 | P.PN ---
Subjective Date of Service: 11/14/21 Primary Care Provider: unknown Chief Complaint: urosepsis Subjective: Improving Physical Examination - Vital Signs Temperature: 97.7 F Blood Pressure: 152/67 Pulse: 69 Respirations: 16 Pulse Ox (%): 100 Assessment & Plan Discharge Plan: Other (assisted facility) Plan to discharge in: 48 Hours Physician Review Additional Text: COVID: negative CXR: COMPARISON: Chest Pa And Lat (2 Views) dated 03/14/2019; Chest Single View dated 12/15/2017; Chest Single View dated 02/13/2017; Chest Single View dated 11/28/2016 FINDINGS: Portable technique limits examination quality. Mild bilateral interstitial lung opacities are seen, probably representing a mild viral infection. The heart is upper limit of normal in size. No displaced fractures. CT Head: COMPARISON: None available TECHNIQUE: Axial CT of the head obtained from the skull apex to the skull base without contrast. This exam was performed according to our departmental dose- optimization program, which includes automated exposure control, adjustment of the mA and/or kV according to patient size and/or use of iterative reconstruction technique. FINDINGS: No acute intracranial hemorrhage identified. No mass, mass effect, shift of the midline, abnormal extra-axial fluid collection or CT evidence of acute ischemic change identified. The ventricular system and sulcal spaces are mildly enlarged compatible with mild cerebral atrophy. Scattered areas of hypodensity throughout the supratentorial white matter are nonspecific and may b e related to chronic small vessel ischemic change. Mucosal thickening of the paranasal sinuses. Mastoid air cells are well aerated. No skull fracture identified. Visualized orbits and globes are unremarkable. Atherosclerotic calcification of the intracranial internal carotid arteries. Postoperative change in the right calvarium. IMPRESSION: 1. No acute intracranial abnormality by CT criteria Physical exam: General: AAO x3 Respiratory: Clear bilaterally Cardiovascular: Regular rate/rhythm, Normal S1 S2 with DANIELLE II/ Gastrointestinal: Normal bowel sounds, No tenderness Integumentary: WNL Neurological: no focal deficits Impression: Acute toxic encephalopathy secondary to severe sepsis, UTI and bacteremia, blood culture positive for E. coli, urine culture positive for E. coli and Klebsiella Chronic diastolic CHF Diabetes mellitus type 2 History of CVA Hypertension Hyperlipidemia Possible underlying adrenal insufficiency Plan: Acute toxic encephalopathy secondary to severe sepsis, UTI and bacteremia, blood culture positive for E. coli, urine culture positive for E. coli and Klebsiella: Continue IV fluids and Levaquin. We will change Levaquin to oral. Recheck blood and urine culture. Physical therapy to assess ambulation. We will recommend skilled placement. Chronic diastolic CHF: We will decrease IV fluids. Diabetes mellitus type 2: Continue with Accu-Cheks and sliding scale. History of CVA: Continue DVT prophylaxis. Restart aspirin. Hypertension: Verify home medication. Hyperlipidemia: Restart home medication Lipitor and fenofibrate Possible underlying adrenal insufficiency: Restart steroid medication. Will verify home medication. DVT prophylaxis: Heparin CODE STATUS: Full code [facility] [id number] minutes: Will recommend skilled placement Time Spent Managing Pts Care (In Minutes): 55
[2021-11-14] MEDS: levoFLOXacin 750 MG TAB PO SCH (17:32)
[2021-11-14] MEDS: TRAMADOL HCL 50 MG TAB PO PRN (18:51)
[2021-11-14 23:48] LABS: Urine Appearance CLEAR (Clear); Urine Bilirubin NEGATIVE (Negative); Urine Blood 1+ (Negative); Urine Color YELLOW (Yellow); Urine Glucose 1+ (Negative); Urine Protein NEGATIVE (Negative); Urine pH 6.5 (5.0-7.0)
[2021-11-14 23:49] LABS: Urine Microscopic Reflex ORDER UMIC
[2021-11-15 00:07] LABS: Urine Bacteria <20 /HPF (<20); Urine RBC <5 /HPF (NONE SEEN)
[2021-11-15] MEDS: HEPARIN 5000 UNIT/ML 1 ML VIAL SQ SCH ×3 (05:08→20:15)
[2021-11-15 05:40] LABS: Absolute Lymphocytes (CBC) 2.2 K/uL (0.7-4.9); Hematocrit 38.5 % (36.0-45.0); MPV 7.9 fL (7.6-11.3); RBC Red Blood Cell Count 4.63 M/uL (3.86-4.86)
[2021-11-15 05:55] LABS: Magnesium 2.1 mg/dL (1.8-2.4); Potassium 3.2 mmol/L (3.5-5.1)
--- NOTE | 2021-11-15 06:12 | P.PN ---
Subjective Date of Service: 11/15/21 Primary Care Provider: unknown Chief Complaint: urosepsis Subjective: Improving, Doing well Physical Examination - Vital Signs Temperature: 97.6 F Blood Pressure: 132/68 Pulse: 65 Respirations: 16 Pulse Ox (%): 99 Assessment & Plan Discharge Plan: Other (assisted facility) Plan to discharge in: 24 Hours Physician Review Additional Text: COVID: negative CXR: COMPARISON: Chest Pa And Lat (2 Views) dated 03/14/2019; Chest Single View dated 12/15/2017; Chest Single View dated 02/13/2017; Chest Single View dated 11/28/2016 FINDINGS: Portable technique limits examination quality. Mild bilateral interstitial lung opacities are seen, probably representing a mild viral infection. The heart is upper limit of normal in size. No displaced fractures. CT Head: COMPARISON: None available TECHNIQUE: Axial CT of the head obtained from the skull apex to the skull base without contrast. This exam was performed according to our departmental dose- optimization program, which includes automated exposure control, adjustment of the mA and/or kV according to patient size and/or use of iterative reconst ruction technique. FINDINGS: No acute intracranial hemorrhage identified. No mass, mass effect, shift of the midline, abnormal extra-axial fluid collection or CT evidence of acute ischemic change identified. The ventricular system and sulcal spaces are mildly enlarged compatible with mild cerebral atrophy. Scattered areas of hypodensity throughout the supratentorial white matter are nonspecific and may be related to chronic small vessel ischemic change. Mucosal thickening of the paranasal sinuses. Mastoid air cells are well aerated. No skull fracture identified. Visualized orbits and globes are unremarkable. Atherosclerotic calcification of the intracranial internal carotid arteries. Postoperative change in the right calvarium. IMPRESSION: 1. No acute intracranial abnormality by CT criteria Physical exam: General: AAO x3 Respiratory: Clear bilaterally. Currently on room air. Cardiovascular: Regular rate/rhythm, Normal S1 S2 with DANIELLE II/ Gastrointestinal: Normal bowel sounds, No tenderness Integumentary: WNL Neurological: no focal deficits Impression: Acute toxic encephalopathy secondary to severe sepsis, UTI and bacteremia, blood culture positive for E. coli, urine culture positive for E. coli and Klebsiella Chronic diastolic CHF Diabetes mellitus type 2 History of CVA Hypertension Hyperlipidemia Possible underlying adrenal insufficiency Depression Plan: Acute toxic encephalopathy secondary to severe sepsis, UTI and bacteremia, blood culture positive for E. coli, urine culture positive for E. coli and Klebsiella: Patient continues to improve. Continue physical therapy. Discontinue IV fluid. Continue oral Levaquin for a total of 7 days. Repeat urine and blood cultures obtained. Case discussed with infectious disease. Awaiting approval on skilled placement. Chronic diastolic CHF: Discontinue IV fluids Diabetes mellitus type 2: Continue with Accu-Cheks and sliding scale. History of CVA: Continue DVT prophylaxis. Continue aspirin. Hypertension: Patient remained stable off blood pressure medication. Hyperlipidemia: Continue Lipitor 20 mg daily and fenofibrate 160 mg daily. Possible underlying adrenal insufficiency: Continue Florinef 0.1 mg daily and hydrocortisone 20 mg daily Depression: Continue Paxil 20 mg daily DVT prophylaxis: Heparin CODE STATUS: Full code [facility] [id number] minutes: Continue to pursue skilled placement Time Spent Managing Pts Care (In Minutes): 55
[2021-11-15] MEDS ORDERED: HYDROCORTISONE 20 MG PO SCH (09:00)
[2021-11-15] MEDS ORDERED: HOME MED 1 EA UNK (Paroxetine Hcl [Paroxetine Hcl] 20 MG Tablet) PO SCH (09:00)
[2021-11-15] MEDS: INSULIN -REGULAR HUMAN 50 UNIT/0.5 ML ML SQ SCH ×4 (09:03→20:15)
[2021-11-15] MEDS: HYDROCORTISONE 10 MG TAB PO SCH (09:03)
[2021-11-15] MEDS: PARoxetine HCL 10 MG TAB PO SCH (09:03)
[2021-11-15] MEDS: NA CHLORIDE 0.9% 1,000 ML IV SCH ×2 (09:03→11:51)
[2021-11-15] MEDS: FLUDROCORTISONE 0.1 MG TAB PO SCH (09:04)
[2021-11-15] MEDS: ASPIRIN 81 MG CHEWABLE TABLET PO SCH (09:05)
[2021-11-15] MEDS: ATORVASTATIN 20 MG TAB PO SCH (09:05)
[2021-11-15] MEDS: FENOFIBRATE 160 MG TAB PO SCH (09:05)
[2021-11-15] MEDS: levoFLOXacin 750 MG TAB PO SCH (09:05)
[2021-11-15] MEDS ORDERED: POTASSIUM CL SA 10 MEQ TAB PO ONE ×2 (12:00→21:00)
--- NOTE | 2021-11-15 12:11 | P.PN ---
Subjective Date of Service: 11/15/21 Primary Care Provider: unknown Chief Complaint: urosepsis Patient seen and examined, doing well with no acute complaints. WBC within normal range, afebrile and hemodynamically stable. Review of Systems 10-point ROS is otherwise unremarkable Physical Examination - Vital Signs Temperature: 97.6 F Blood Pressure: 149/65 Pulse: 61 Respirations: 18 Pulse Ox (%): 98 Assessment And Plan - Plan Physical exam: General: Awake, alert, oriented HEENT: Atraumatic, Normocephalic Neck: Supple Respiratory: Clear to auscultation bilaterally, Normal air movement Cardiovascular: Regular rate/rhythm, Normal S1 S2 Gastrointestinal: Normal bowel sounds, Soft and benign, Non-distended Musculoskeletal: No clubbing, No swelling, No contractures Integumentary: No rashes, No breakdown Conclusions/Impression: Antibiotics: Levaquin Start: 11/10 Lines: Left and right peripheral intravenous lines Assessment/plan Urosepsis Blood and urine cultures growing E. coli sensitive to Levaquin. Vancomycin disc ontinued, continue IV Levaquin for total antibiotic duration of 7 days. ANMOL Renal function improving, avoid nephrotoxic agents and renally renally dose all antibiotics. Current creatinine clearance estimated to be 51.4 mL/min. CHF Diabetes CAD Hypertension Medical management per primary team Plan of care discussed with Dr. Jagdish Michel for consultation. Physician Review Additional Text: COVID: negative CXR: COMPARISON: Chest Pa And Lat (2 Views) dated 03/14/2019; Chest Single View dated 12/15/2017; Chest Single View dated 02/13/2017; Chest Single View dated 11/28/2016 FINDINGS: Portable technique limits examination quality. Mild bilateral interstitial lung opacities are seen, probably representing a mild viral infection. The heart is upper limit of normal in size. No displaced fractures. CT Head: COMPARISON: None available TECHNIQUE: Axial CT of the head obtained from the skull apex to the skull base without contrast. This exam was performed according to our departmental dose- optimization program, which includes automated exposure control, adjustment of the mA and/or kV according to patient size and/or use of iterative reconstruction technique. FINDINGS: No acute intracranial hemorrhage identified. No mass, mass effect, shift of the midline, abnormal extra-axial fluid collection or CT evidence of acute ischemic change identified. The ventricular system and sulcal spaces are mildly enlarged compatible with mild cerebral atrophy. Scattered areas of hypodensity throughout the supratentorial white matter are nonspecific and may be related to chronic small vessel ischemic change. Mucosal thickening of the paranasal sinuses. Mastoid air cells are well aerated. No skull fracture identified. Visualized orbits and globes are unremarkable. Atherosclerotic calcification of the intracranial internal carotid arteries. Postoperative change in the right calvarium. IMPRESSION: 1. No acute intracranial abnormality by CT criteria Physical exam: General: AAO x3 Respiratory: Clear bilaterally Cardiovascular: Regular rate/rhythm, Normal S1 S2 with DANIELLE II/ Gastrointestinal: Normal bowel sounds, No tenderness Integumentary: WNL Neurological: no focal deficits Impression: Acute toxic encephalopathy secondary to severe sepsis, UTI and bacteremia, blood culture positive for E. coli, urine culture positive for E. coli and Klebsiella Chronic diastolic CHF Diabetes mellitus type 2 History of CVA Hypertension Hyperlipidemia Possible underlying adrenal insufficiency Plan: Acute toxic encephalopathy secondary to severe sepsis, UTI and bacteremia, blood culture positive for E. coli, urine culture positive for E. coli and Klebsiella: Continue IV fluids and Levaquin. We will change Levaquin to oral. Recheck blood and urine culture. Physical therapy to assess ambulation. We will recommend skilled placement. Chronic diastolic CHF: We will decrease IV fluids. Diabetes mellitus type 2: Continue with Accu-Cheks and sliding scale. History of CVA: Continue DVT prophylaxis. Restart aspirin. Hypertension: Verify home medication. Hyperlipidemia: Restart home medication Lipitor and fenofibrate Possible underlying adrenal insufficiency: Restart steroid medication. Will verify home medication. DVT prophylaxis: Heparin CODE STATUS: Full code [facility] [id number] minutes: Will recommend skilled placement
[2021-11-15] MEDS: TRAMADOL HCL 50 MG TAB PO PRN (19:11)
[2021-11-16] MEDS: HEPARIN 5000 UNIT/ML 1 ML VIAL SQ SCH (05:23)
--- NOTE | 2021-11-16 06:11 | P.PN ---
Subjective Date of Service: 11/16/21 Primary Care Provider: unknown Chief Complaint: urosepsis Subjective: Improving, Doing well Physical Examination - Vital Signs Temperature: 98.0 F Blood Pressure: 154/68 Pulse: 73 Respirations: 17 Pulse Ox (%): 97 Assessment & Plan Discharge Plan: Home (with HH/PT) Plan to discharge in: 24 Hours Physician Review Additional Text: COVID: negative CXR: COMPARISON: Chest Pa And Lat (2 Views) dated 03/14/2019; Chest Single View dated 12/15/2017; Chest Single View dated 02/13/2017; Chest Single View dated 11/28/2016 FINDINGS: Portable technique limits examination quality. Mild bilateral interstitial lung opacities are seen, probably representing a mild viral infection. The heart is upper limit of normal in size. No displaced fractures. CT Head: COMPARISON: None available TECHNIQUE: Axial CT of the head obtained from the skull apex to the skull base without contrast. This exam was performed according to our departmental dose- optimization program, which includes automated exposure control, adjustment of the mA and/or kV according to patient size and/or use of iterative reconstruction technique. FINDINGS: No acute intracranial hemorrhage identified. No mass, mass effect, shift of the midline, abnormal extra-axial fluid collection or CT evidence of acute ischemic change identified. The ventricular system and sulcal spaces are mildly enlarged compatible with mild cerebral atrophy. Scattered areas of hypodensity throughout the supratentorial white matter are nonspecific and may be related to chronic small vessel ischemic change. Mucosal thickening of the paranasal sinuses. Mastoid air cells are well aerated. No skull fracture identified. Visualized orbits and globes are unremarkable. Atherosclerotic calcification of the intracranial internal carotid arteries. Postoperative change in the right calvarium. IMPRESSION: 1. No acute intracranial abnormality by CT criteria Physical exam: General: AAO x3 Respiratory: Clear bilaterally. Currently on room air. Cardiovascular: Regular rate/rhythm, Normal S1 S2 with DANIELLE II/ Gastrointestinal: Normal bowel sounds, No tenderness Integumentary: WNL Neurological: no focal deficits Impression: Acute toxic encephalopathy secondary to severe sepsis, UTI and bacteremia, blood culture positive for E. coli, urine culture positive for E. coli and Klebsiella Chronic diastolic CHF Diabetes mellitus type 2 History of CVA Hypertension Hyperlipidemia Possible underlying adrenal insufficiency Depression Plan: Acute toxic encephalopathy secondary to severe sepsis, UTI and bacteremia, blood culture positive for E. coli, urine culture positive for E. coli and Klebsiella: Home with HH/PT today. Continue oral Levaquin for a total of 7 days. Chronic diastolic CHF: Stable off meds Diabetes mellitus type 2: Continue with Accu-Cheks and sliding scale. History of CVA: Continue DVT prophylaxis. Continue aspirin. Hypertension: Patient remained stable off blood pressure medication. Hyperlipidemia: Continue Lipitor 20 mg daily and fenofibrate 160 mg daily. Possible underlying adrenal insufficiency: Continue Florinef 0.1 mg daily and hydrocortisone 20 mg daily Depression: Continue Paxil 20 mg daily DVT prophylaxis: Heparin CODE STATUS: Full code [facility] [id number] minutes: Home with HH/PT Time Spent Managing Pts Care (In Minutes): 55
[2021-11-16 06:22] LABS: Absolute Lymphocytes (CBC) 1.5 K/uL (0.7-4.9); Hematocrit 37.6 % (36.0-45.0); Lymphocytes % 18.5 % (15.3-44.8); MPV 7.6 fL (7.6-11.3); RBC Red Blood Cell Count 4.57 M/uL (3.86-4.86)
[2021-11-16 06:42] LABS: Potassium 3.4 mmol/L (3.5-5.1)
[2021-11-16] MEDS: INSULIN -REGULAR HUMAN 50 UNIT/0.5 ML ML SQ SCH ×2 (07:30→12:14)
--- NOTE | 2021-11-16 07:39 | EKG ---
Test Date: 2021-11-09 Test Time: 22:44:28 Hall Manager: ANDRAE MEASUREMENT RESULTS: Intervals: Rate: 109 UT: 140 QRSD: 84 QT: 330 QTc: 444 [place]: P: 42 UT: 140 QRS: -5 T: 52 INTERPRETIVE STATEMENTS: Sinus tachycardia Low voltage QRS Possible Inferior infarct, age undetermined Abnormal ECG Compared to ECG 03/14/2019 15:56:15 Low QRS voltage now present Sinus rhythm no longer present Myocardial infarct finding still present Electronically Signed On 11-16-21 07:27:51 [employer]OTOLITHOGRAPHIC STRIPPER by Alexey Telles
[2021-11-16 08:50] VITALS: BP 154/68; TEMP 98
--- NOTE | 2021-11-16 08:51 | P.DS ---
Admission Date: 11/10/21 Discharge Date: 11/16/21 Primary Care Provider: unknown Disposition: [place] HOME/HOME HEALTH CARE Discharge Condition: GOOD Reason for Admission: urosepsis Consultations: Infectious disease-Dr. Dubon Procedures: COVID: negative CXR: COMPARISON: Chest Pa And Lat (2 Views) dated 03/14/2019; Chest Single View dated 12/15/2017; Chest Single View dated 02/13/2017; Chest Single View dated 11/28/2016 FINDINGS: Portable technique limits examination quality. Mild bilateral interstitial lung opacities are seen, probably representing a mild viral infection. The heart is upper limit of normal in size. No displaced fractures. CT Head: COMPARISON: None available TECHNIQUE: Axial CT of the head obtained from the skull apex to the skull base without contrast. This exam was performed according to our departmental dose- optimization program, which includes automated exposure control, adjustment of the mA and/or kV according to patient size and/or use of iterative reconstruction technique. FINDINGS: No acute intracranial hemorrhage identified. No mass, mass effect, shift of the midline, abnormal extra-axial fluid collection or CT evidence of acute ischemic change identified. The ventricular system and sulcal spaces are mildly enlarged compatible with mild cerebral atrophy. Scattered areas of hypodensity throughout the supratentorial white matter are nonspecific and may be related to chronic small vessel ischemic change. Mucosal thickening of the paranasal sinuses. Mastoid air cells are well aerated. No skull fracture identified. Visualized orbits and globes are unremarkable. Atherosclerotic calcification of the intracranial internal carotid arteries. Postoperative change in the right calvarium. IMPRESSION: 1. No acute intracranial abnormality by CT criteria Medical Problem List: Acute toxic encephalopathy secondary to severe sepsis, UTI and bacteremia, blood culture positive for E. coli, urine culture positive for E. coli and Klebsiella Chronic diastolic CHF Diabetes mellitus type 2 History of CVA, CAD Hypertension Hyperlipidemia Adrenal insufficiency Diabetic neuropathy Depression Brief History of Present Illness: 71 yo female with history of CAD, diabetes, hypertension, CHF. Patient was found confused. Patient was found to have UTI with severe sepsis. Patient admitted for treatment. Hospital Course: Patient presented with acute toxic encephalopathy secondary to severe sepsis, UTI and bacteremia. Urine and blood cultures were positive. E. coli and Klebsiella identified. Patient responded well to IV fluids, IV antibiotic therapy. Infectious disease was consulted. Repeat blood and urine cultures show no growth. Patient was to go to skilled facility for rehab but the patient preferred to go home. Patient doing well at this time. At discharge patient will continue with home health and physical therapy at discharge. At discharge she will continue with Levaquin 750 mg daily for 7 more days. Patient also with underlying urinary incontinence. At discharge she will continue with tolterodine 4 mg daily. Recommend follow-up with PCP in 1 week to follow-up this hospitalization. Education on UTI prevention provided. Patient with chronic diastolic CHF. Overall stable. At discharge she will continue with 1500 cc/day fluid restriction and low-salt diet. At discharge we will continue with her medication including Lasix 40 mg daily and potassium supplementation 10 mEq daily. Recommend to monitor her weight daily. If her weight increases by more than 5 pounds further adjustment in medication may be required. As her condition improves Lasix can be transitioned to as needed. Recommend follow-up with her PCP to further monitor and adjust medication. Patient with hypertension. At discharge she will continue with her medications including metoprolol ER 25 mg daily and lisinopril 5 mg daily. Recommend to monitor blood pressure daily. Recommend to maintain blood pressure less than 130/80. If blood pressure remains above 140/90 further adjustment in her medication may be required. If blood pressure less than 110 then she may hold her medication. Recommend follow-up with her PCP to further monitor and adjust medication. Patient with diabetes mellitus type 2. Patient has been using Humalog at home only. Hemoglobin A1c 8.9. Will recommend Amaryl 1 mg daily for diabetes at discharge. Recommend to monitor her blood sugars at least twice daily. Recommend to maintain blood sugar less than 140 fasting and less than 200 after meals. Patient may continue with Humalog at home per sliding scale. Education on sliding scale will be provided. Recommend to recheck hemoglobin A1c in 3 months to monitor progress. Recommend follow-up with her PCP within 1 week to further monitor and adjust medication. Patient with history of CVA, CAD. At discharge she will continue with aspirin 81 mg daily and Brilinta 90 mg 1 pill twice daily. Patient with hyperlipidemia. At discharge she will continue with Lipitor 80 mg daily and Tricor 145 mg daily. Patient with depression. At discharge she will continue with Paxil 20 mg daily. Patient with diabetic neuropathy. At discharge she may continue with gabapentin 300 mg 3 times a day. Patient with history of adrenal insufficiency. At discharge she will continue with her medication including Florinef 0.1 mg and Cortef 20 mg daily. Recommend follow-up with her PCP to further monitor and adjust medication. Vital Signs/Physical Exam: Temp Pulse Resp BP Pulse Ox 98.0 F 73 17 154/68 H 97 11/16/21 08:50 11/16/21 08:50 11/16/21 08:50 11/16/21 08:50 11/16/21 08:50 General: Alert, In no apparent distress, Oriented x3, Cooperative HEENT: Atraumatic Neck: Supple Respiratory: Clear to auscultation bilaterally, Normal air movement Cardiovascular: Normal pulses, Regular rate/rhythm Gastrointestinal: Normal bowel sounds, No tenderness, No masses, No rebound, No guarding Musculoskeletal: No erythema, No tenderness, No warmth Integumentary: No tenderness/swelling Neurological: Normal speech, Normal strength at 5/5 x4 extr, Normal tone, Normal affect Laboratory Data at Discharge: WBC 8.40 K/uL (4.3-10.9) 11/16/21 05:42 Hgb 12.8 g/dL (12.0-15.0) 11/16/21 05:42 Hct 37.6 % (36.0-45.0) 11/16/21 05:42 Plt Count 348 K/uL (152-406) D 11/16/21 05:42 PT 13.6 SECONDS (9.5-12.5) H 11/13/21 06:21 INR 1.18 11/13/21 06:21 APTT 31.1 SECONDS (24.3-36.9) 11/13/21 06:21 Sodium 137 mmol/L (136-145) 11/16/21 05:42 Potassium 3.4 mmol/L (3.5-5.1) L 11/16/21 05:42 BUN 6 mg/dL (7-18) L 11/16/21 05:42 Creatinine 0.72 mg/dL (0.55-1.3) 11/16/21 05:42 Glucose 167 mg/dL (74-106) H 11/16/21 05:42 Phosphorus 3.2 mg/dL (2.5-4.9) D 11/12/21 05:33 Magnesium 2.0 mg/dL (1.8-2.4) 11/16/21 05:42 Total Bilirubin 0.6 mg/dL (0.2-1.0) 11/14/21 05:51 AST 43 U/L (15-37) H 11/14/21 05:51 ALT 35 U/L (12-78) 11/14/21 05:51 Alkaline Phosphatase 82 U/L (45-117) 11/14/21 05:51 Triglycerides 165 mg/dL (<150) H 11/11/21 05:35 Cholesterol 125 mg/dL (<200) 11/11/21 05:35 HDL Cholesterol 15 mg/dL (40-60) L 11/11/21 05:35 Cholesterol/HDL Ratio 8.33 11/11/21 05:35 Amylase 12 U/L (25-115) L 11/09/21 21:45 Lipase 18 U/L (73-393) L 11/09/21 21:45 Home Medications: Aspirin 81 mg PO DAILY 11/28/16 Atorvastatin Calcium [Lipitor*] 80 mg PO DAILY 11/28/16 Fenofibrate [Tricor*] 145 mg PO DAILY 11/28/16 Gabapentin [Gralise] 300 mg PO TID 11/28/16 PARoxetine HCL [Paroxetine HCl] 20 mg PO DAILY 11/28/16 Furosemide 40 mg PO DAILY 02/14/17 Potassium Oral Tab [Klor-Con 10 mEq Tab*] 10 meq PO DAILY 02/14/17 Levothyroxine [Synthroid*] 50 mcg PO DAILY 11/15/21 Lisinopril [Zestril] 5 mg PO BEDTIME 11/15/21 Metoprolol Succinate 25 mg PO BEDTIME 11/15/21 Ticagrelor [Brilinta*] 90 mg PO Q12HR 11/15/21 Tolterodine Tartrate [Tolterodine Tartrate ER] 4 mg PO DAILY 11/15/21 Fludrocortisone [Florinef *] 0.1 mg PO DAILY tab 11/16/21 Glimepiride [Amaryl] 1 mg PO DAILY #30 tablet 11/16/21 Hydrocortisone [Cortef*] 20 mg PO DAILY tab 11/16/21 Insulin Lispro [Humalog] See Protocol SQ [facility] #1 11/16/21 levoFLOXacin [Levaquin*] 750 mg PO DAILY #7 tab 11/16/21 New Medications: Glimepiride [Amaryl] 1 mg PO DAILY #30 tablet Insulin Lispro [Humalog] See Protocol SQ [facility] #1 levoFLOXacin [Levaquin*] 750 mg PO DAILY #7 tab Physician Discharge Instructions: Patient presented with acute toxic encephalopathy secondary to severe sepsis, UTI and bacteremia. Urine and blood cultures were positive. E. coli and Klebsiella identified. Patient responded well to IV fluids, IV antibiotic therapy. Infectious disease was consulted. Repeat blood and urine cultures show no growth. Patient was to go to skilled facility for rehab but the patient preferred to go home. Patient doing well at this time. At discharge patient will continue with home health and physical therapy at discharge. At discharge she will continue with Levaquin 750 mg daily for 7 more days. Patient also with underlying urinary incontinence. At discharge she will continue with tolterodine 4 mg daily. Recommend follow-up with PCP in 1 week to follow-up this hospitalization. Education on UTI prevention provided. Patient with chronic diastolic CHF. Overall stable. At discharge she will continue with 1500 cc/day fluid restriction and low-salt diet. At discharge we will continue with her medication including Lasix 40 mg daily and potassium supplementation 10 mEq daily. Recommend to monitor her weight daily. If her weight increases by more than 5 pounds further adjustment in medication may be required. As her condition improves Lasix can be transitioned to as needed. Recommend follow-up with her PCP to further monitor and adjust medication. Patient with hypertension. At discharge she will continue with her medications including metoprolol ER 25 mg daily and lisinopril 5 mg daily. Recommend to monitor blood pressure daily. Recommend to maintain blood pressure less than 130/80. If blood pressure remains above 140/90 further adjustment in her medi cation may be required. If blood pressure less than 110 then she may hold her medication. Recommend follow-up with her PCP to further monitor and adjust medication. Patient with diabetes mellitus type 2. Patient has been using Humalog at home only. Hemoglobin A1c 8.9. Will recommend Amaryl 1 mg daily for diabetes at discharge. Recommend to monitor her blood sugars at least twice daily. Rec ommend to maintain blood sugar less than 140 fasting and less than 200 after meals. Patient may continue with Humalog at home per sliding scale. Education on sliding scale will be provided. Recommend to recheck hemoglobin A1c in 3 months to monitor progress. Recommend follow-up with her PCP within 1 week to further monitor and adjust medication. Patient with history of CVA, CAD. At discharge she will continue with aspirin 81 mg daily and Brilinta 90 mg 1 pill twice daily. Patient with hyperlipidemia. At discharge she will continue with Lipitor 80 mg daily and Tricor 145 mg daily. Patient with depression. At discharge she will continue with Paxil 20 mg daily. Patient with diabetic neuropathy. At discharge she may continue with gabapentin 300 mg 3 times a day. Patient with history of adrenal insufficiency. At discharge she will continue with her medication including Florinef 0.1 mg and Cortef 20 mg daily. Recommend follow-up with her PCP to further monitor and adjust medication. Diet: ADA Activity: Fall precautions Followup: Unknown,U [Primary Care Provider] - Time spent managing pt's care (in minutes): 55
[2021-11-16 09:25] VITALS: O2SAT 99
[2021-11-16] MEDS: PARoxetine HCL 10 MG TAB PO SCH (09:39)
[2021-11-16] MEDS: levoFLOXacin 750 MG TAB PO SCH (09:40)
[2021-11-16] MEDS: ATORVASTATIN 20 MG TAB PO SCH (09:40)
[2021-11-16] MEDS: HYDROCORTISONE 10 MG TAB PO SCH (09:40)
[2021-11-16] MEDS: ASPIRIN 81 MG CHEWABLE TABLET PO SCH (09:40)
[2021-11-16] MEDS: FLUDROCORTISONE 0.1 MG TAB PO SCH (09:45)
[2021-11-16] MEDS: FENOFIBRATE 160 MG TAB PO SCH (12:13)
--- NOTE | 2021-11-16 12:15 | P.PN ---
Subjective Date of Service: 11/16/21 Primary Care Provider: unknown Chief Complaint: urosepsis Patient seen and examined, doing well with no acute complaints. Review of Systems 10-point ROS is otherwise unremarkable Physical Examination - Vital Signs Temperature: 98.0 F Blood Pressure: 154/68 Pulse: 73 Respirations: 17 Pulse Ox (%): 97 - Studies Laboratory Last Values WBC 17.50 K/uL (4.3-10.9) H 11/09/21 21:45 RBC 4.83 M/uL (3.86-4.86) 11/09/21 21:45 Hgb 13.6 g/dL (12.0-15.0) 11/09/21 21:45 Hct 41.0 % (36.0-45.0) 11/09/21 21:45 MCV 84.9 fL (80-100) 11/09/21 21:45 MCH 28.2 pg (27.0-35.0) 11/09/21 21:45 MCHC 33.2 g/dL (32.0-36.0) 11/09/21 21:45 RDW 13.3 % (12.1-15.2) 11/09/21 21:45 Plt Count 193 K/uL (152-406) 11/09/21 21:45 MPV 7.4 fL (7.6-11.3) L 11/09/21 21:45 Neutrophils % 82.0 % (41.7-73.7) H 11/09/21 21:45 Lymphocytes % 9.7 % (15.3-44.8) L 11/09/21 21:45 Monocytes % 7.9 % (3.3-12.3) 11/09/21 21:45 Eosinophils % 0.0 % (0-4.4) 11/09/21 21:45 Basophils % 0.4 % (0-1.3) 11/09/21 21:45 Absolute Neutrophils 14.4 K/uL (1.8-8.0) H 11/09/21 21:45 Absolute Lymphocytes 1.7 K/uL (0.7-4.9) 11/09/21 21:45 Absolute Monocytes 1.4 K/uL (0.1-1.3) H 11/09/21 21:45 Absolute Eosinophils 0.0 K/uL (0-0.5) 11/09/21 21:45 Absolute Basophils 0.1 K/uL (0-0.5) 11/09/21 21:45 PT 14.6 SECONDS (9.5-12.5) H 11/09/21 21:45 INR 1.27 11/09/21 21:45 APTT 32.6 SECONDS (24.3-36.9) 11/09/21 21:45 Sodium 131 mmol/L (136-145) L 11/09/21 21:45 Potassium 4.0 mmol/L (3.5-5.1) 11/09/21 21:45 Chloride 100 mmol/L (98-107) 11/09/21 21:45 Carbon Dioxide 24 mmol/L (21-32) 11/09/21 21:45 BUN 25 mg/dL (7-18) H 11/09/21 21:45 Creatinine 1.47 mg/dL (0.55-1.3) H 11/09/21 21:45 Estimated GFR 35 mL/min (=/>90) L 11/09/21 21:45 Glucose 343 mg/dL (74-106) H 11/09/21 21:45 POC Glucose 365 mg/dL (65-120) H 11/09/21 22:49 Lactic Acid 1.7 mmol/L (0.4-2.0) 11/09/21 21:45 Calcium 8.5 mg/dL (8.5-10.1) 11/09/21 21:45 Total Bilirubin 1.1 mg/dL (0.2-1.0) H 11/09/21 21:45 Direct Bilirubin 0.3 mg/dL (0-0.2) H 11/09/21 21:45 AST 29 U/L (15-37) 11/09/21 21:45 ALT 23 U/L (12-78) 11/09/21 21:45 Alkaline Phosphatase 75 U/L (45-117) 11/09/21 21:45 Creatine Kinase 794 U/L (26-192) H 11/09/21 21:45 CK-MB (CK-2) 6.2 ng/mL (1.0-3.6) H 11/09/21 21:45 Troponin I High Sens 15.20 pg/mL (<58.9) 11/09/21 21:45 Serum Total Protein 7.6 g/dL (6.4-8.2) 11/09/21 21:45 Albumin 2.9 g/dL (3.4-5.0) L 11/09/21 21:45 Globulin 4.7 g/dL (2.3-3.5) H 11/09/21 21:45 Albumin/Globulin Ratio 0.6 (1.1-1.8) L 11/09/21 21:45 Amylase 12 U/L (25-115) L 11/09/21 21:45 Lipase 18 U/L (73-393) L 11/09/21 21:45 Procalcitonin 3.38 ng/mL (<0.050) H 11/09/21 21:45 Urine pH 5.5 (5.0-7.0) 11/09/21 22:16 Ur Specific Dunbar 1.015 (1.005-1.030) 11/09/21 22:16 Glucose (UA)(Auto) 3+ (Negative) H 11/09/21 22:16 Urine Ketones 1+ (Negative) H 11/09/21 22:16 Urine Blood 2+ (Negative) H 11/09/21 22:16 Urine Nitrite Positive (Negative) H 11/09/21 22:16 Ur Leukocyte Esterase 1+ (Negative) H 11/09/21 22:16 Urine RBC <5 /HPF (NONE SEEN) 11/09/21 22:15 Urine WBC >50 /HPF (<5) H 11/09/21 22:15 Ur Squamous Epith Cells 10-20 /HPF (NONE SEEN) H 11/09/21 22:15 Urine Bacteria >50 /HPF (<20) H 11/09/21 22:15 Urine Culture Reflexed Reflexed 11/09/21 22:15 Urine Total Protein 2+ (Negative) H 11/09/21 22:16 SARS-CoV-2 Rap RNA(RT-PCR) Negative (NEGATIVE) 11/09/21 21:47 Assessment And Plan - Plan Physical exam: General: Awake, alert, oriented HEENT: Atraumatic, Normocephalic Neck: Supple Respiratory: Clear to auscultation bilaterally, Normal air movement Cardiovascular: Regular rate/rhythm, Normal S1 S2 Gastrointestinal: Normal bowel sounds, Soft and benign, Non-distended Musculoskeletal: No clubbing, No swelling, No contractures Integumentary: No rashes, No breakdown Conclusions/Impression: Antibiotics: Levaquin Start: 11/10 Lines: Left and right peripheral intravenous lines Assessment/plan Urosepsis Blood and urine cultures growing E. coli sensitive to Levaquin. Vancomycin discontinued, continue IV Levaquin for total antibiotic duration of 7 days. Repeat blood cultures obtained on 11/14 grew coagulase-negative staph in 1 out of 4 bottles. Repeat blood cultures obtained on 11/15 pending. Likely contamination, no need for treatment at this time. Patient asymptomatic, WBC within normal range afebrile ANMOL Renal function improving, avoid nephrotoxic agents and renally renally dose all antibiotics. Current creatinine clearance estimated to be 51.4 mL/min. CHF Diabetes CAD Hypertension Medical management per primary team Plan of care discussed with Dr. Jagdish Michel for consultation.
== END 2021-11-16 13:25 | disposition home health service (06) | DRG 871 ==
LOC: ER 21:08 → ERHOLD 11-10 02:38 → 2ND 11-10 03:08
PROVIDERS: ADMIT Hospitalist; ATTEND Family Medicine
DX: A41.51 Sepsis due to Escherichia coli [E. coli] (principal); G92.9 Unspecified toxic encephalopathy; N39.0 Urinary tract infection, site not specified; N17.9 Acute kidney failure, unspecified; I50.32 Chronic diastolic (congestive) heart failure; E27.40 Unspecified adrenocortical insufficiency; R65.20 Severe sepsis without septic shock; E78.5 Hyperlipidemia, unspecified; I25.10 Atherosclerotic heart disease of native coronary artery without angina pectoris; J44.9 Chronic obstructive pulmonary disease, unspecified; E11.40 Type 2 diabetes mellitus with diabetic neuropathy, unspecified; E11.65 Type 2 diabetes mellitus with hyperglycemia; E86.0 Dehydration; F32.A Depression, unspecified; I27.20 Pulmonary hypertension, unspecified; I11.0 Hypertensive heart disease with heart failure; I50.811 Acute right heart failure; B96.1 Klebsiella pneumoniae [K. pneumoniae] as the cause of diseases classified elsewhere; Z95.5 Presence of coronary angioplasty implant and graft; Z88.5 Allergy status to narcotic agent; Z88.0 Allergy status to penicillin; Z88.1 Allergy status to other antibiotic agents; Z88.8 Allergy status to other drugs, medicaments and biological substances; Z86.73 Personal history of transient ischemic attack (TIA), and cerebral infarction without residual deficits; Z96.651 Presence of right artificial knee joint; Z79.82 Long term (current) use of aspirin; Z79.4 Long term (current) use of insulin; Z79.899 Other long term (current) drug therapy; Z20.822 Contact with and (suspected) exposure to COVID-19
CPT/HCPCS: 36415; 70450; 71045; 80048; 80053; 80061; 80076; 80202; 81003; 81015; 82150; 82533; 82550; 82553; 82607; 82947; 83036; 83605; 83690; 83735; 83880; 84100; 84132; 84145; 84439; 84443; 84484; 85025; 85610; 85730; 87040; 87077; 87086; 87088; 87186; 87205; 93005; 94760; 94762; 96374; 96375; 97162; 97530; 99285; J0360; J1644; J1720; J2405; J3370; J7030; J7040; J7050; U0003